=== PATIENT | female | born 1945 | race Caucasian/White ===

== ENCOUNTER 2021-03-23 20:35 | Inpatient (IN) | payer MEDICARE, OTHER ==
[~2021-03-23] VITALS: Ht 152.4 cm; Wt 100.4 kg
--- NOTE | 2021-03-23 20:51 | ER.PDOC ---
General Chief Complaint: Requesting Medical Care Stated Complaint: KNEE PAIN Time seen by MD: 20:47 Source: patient History of Present Illness Initial Comments 75-year-old female with a history of knee replacement surgery as well as septic joint that she is on chronic antibiotics for. Patient states she had surgery 7 months ago and had been transferred from [place] to [place] to be with her daughter for rehab. Patient states that she is on a generic version of penicillin chronically for her infection in her knee. Patient states that for the last 2 days she has not been feeling well and had a generalized weakness. She also noticed increased pain in her left knee and redness has worsened since the surgery and postop infection. Patient denies any fever, no chills, no cough, does have A. fib. Has taken hydrocodone for her pain in the knee with no resolution. Patient is unsure if she is having a fever as she has had no opportunity to check. States that pain worsens with ambulation and movement of any pain Onset: yesterday Where: home Severity: severe Associated Symptoms: unable to bear weight Allergies: Coded Allergies: Penicillins (Verified Allergy, Unknown, Rash, 03/23/21) codeine (Verified Allergy, Unknown, 03/23/21) fentanyl (Verified Allergy, Unknown, 03/23/21) hydromorphone (Verified Allergy, Unknown, 03/23/21) Review of Systems Musculoskeletal: see HPI Physical Exam General Appearance: Alert, Mild Distress Foot: swelling Neuro/Vasc/Tendon: sensation nml Skin: warm/dry (Erythema overlying the left knee with blanching and irregular distribution in the nature ) Head/ENT: nml inspection Neck/Back: nml inspection Comments Irregular regular rhythm on cardiac exam lungs: Diminished in the bases, normal excursion, noted oxygen level at 92% on my assessment Results/Orders Results/Orders Orders - EJESIEME,QAMAR C DO Saline Lock (03/23/21 20:43) Lactic Acid(Ml) (03/23/21 20:43) Blood Culture (03/23/21 20:43) Cbc With Auto Diff (03/23/21 20:43) Comprehensive Metabolic Panel (03/23/21 20:43) Creatine Kinase (03/23/21 20:43) Creatine Kinase Mb (03/23/21 20:43) Troponin I (03/23/21 20:43) Probnp B-Type Glaze Mixer (03/23/21 20:43) PT (03/23/21 20:43) Partial Thromboplastin Time. (03/23/21 20:43) Xr Chest 1v (03/23/21 20:43) Ekg-Routine (03/23/21 20:43) Type And Screen (03/23/21 20:43) Saline Lock (03/23/21 20:43) Covid19 Antigen Madhavi Celena (03/23/21 20:43) Us Bilat Lower Ext Venous Dopp (03/23/21 20:43) Erythrocyte Sedimentation Rate (03/23/21 20:43) C-Reactive Protein (03/23/21 20:43) Xr Knee Lt 2v (03/23/21 20:43) Procalcitonin (03/23/21 22:19) Ceftriaxone Sodium (Rocephin) (03/23/21 23:00) Vancomycin Hcl (Vancomycin Hcl) (03/23/21 23:00) Routine Vital Signs (03/23/21 22:58) Bedrest (03/23/21 22:58) Dietary Screen (03/24/21 Breakfast) Intake & Output (03/23/21 22:58) Admit Orders (03/23/21 22:58) Vital Signs Date Time Temp Pulse Resp B/P (MAP) Pulse Ox O2 Delivery O2 Flow Rate FiO2 03/23/21 20:58 98.3 90 16 03/23/21 20:58 98.3 90 16 148/77 (100) 93 Room Air 03/23/21 20:58 98.3 90 16 93 Laboratory Tests Test 03/23/21 21:27 03/23/21 22:05 White Blood Count 8.4 10^3/uL (4.5-11.0) Red Blood Count 3.85 10^6/uL (4.00-5.20) L Hemoglobin 12.0 g/dL (12.0-15.0) Hematocrit 38.1 % (36.0-46.0) Mean Corpuscular Volume 99.0 fL (78-100) Mean Corpuscular Hemoglobin 31.2 pg (26-34) Mean Corpuscular Hemoglobin Concent 31.5 g/dL (33-36.5) L Red Cell Distribution Width 18.4 % (11.5-14.5) H Platelet Count 328 10^3/uL (150-400) Mean Platelet Volume 9.0 fL (7.8-11.0) Neutrophils (%) (Auto) 66.6 % (41.0-85.0) Lymphocytes (%) (Auto) 15.8 % (24.0-44.0) L Monocytes (%) (Auto) 13.4 % (5.0-12.0) H Neutrophils # (Auto) 5.6 10^3/uL (1.8-7.7) Lymphocytes # (Auto) 1.32 10^3/uL1 (1.0-4.8) Monocytes # (Auto) 1.1 10^3/uL (0.3-0.8) H Absolute Immature Granulocyte (auto 0.07 10^3 u/L (0-2) Absolute Eosinophils (auto) 0.3 10^3/uL (0.0-0.2) H Immature Granulocytes % 0.80 % (0.00-0.50) H Eosinophils % 3.8 % (0.0-5.0) Basophils % 0.4 % (0.0-0.2) H Basophils # 0.0 10^3/uL (0.0-0.1) Erythrocyte Sedimentation Rate 35 mm/hr (0-20) H Prothrombin Time 14.3 SEC (9.6-12.0) H Prothrombin Time INR (Non-Therap) 1.3 Activated Partial Thromboplast Time 33.4 SEC (24.67-30.72) Sodium Level 133 mmol/L (132-145) Potassium Level 3.6 mmol/L (3.6-5.2) Chloride Level 100.0 mmol/L (96-109) Carbon Dioxide Level 29.5 mmol/L (20.0-32) Anion Gap 7.1 Blood Urea Nitrogen 10 mg/dL (7-18) Creatinine 0.90 mg/dL (0.59-1.40) Estimated GFR () 73.9 (>/=60) Est GFR (CKD-EPI)(Non-Afr Bruneian) 61.0 (>/=60) BUN/Creatinine Ratio 11.0 Glucose Level 108 mg/dL (70-110) Lactic Acid Level 1.0 mmol/L (0.5-1.9) Calcium Level 9.0 mg/dL (8.4-10.5) Total Bilirubin 0.9 mg/dL (0.2-1.0) Aspartate Amino Transferase (AST) 18 U/L (0-35) Alanine Aminotransferase (ALT) 24 U/L (12-78) Alkaline Phosphatase 90 U/L (50-136) Total Creatine Kinase 27 U/L (26-192) Creatine Kinase MB 1.2 ng/mL (0.5-3.6) Troponin I < 0.02 ng/mL (0.00-0.05) C-Reactive Protein 7.78 mg/dL (0.00-5.00) H Pro-B-Type Natriuretic Peptide 816 pg/mL (0-450) H Total Protein 7.5 g/dL (6.4-8.2) Albumin 3.1 g/dL (3.4-5.0) L Globulin 4.4 Albumin/Globulin Ratio 0.704 Procalcitonin < 0.05 ng/mL (0.05-0.5) L SARS-CoV-2 Antigen (Rapid) NEGATIVE (NEGATIVE) Blood Bank Test 03/23/21 21:27 Antibody Screen NEGATIVE Blood Type O POSITIVE Progress Progress EKG at 10:12 PM sinus rhythm at a rate of 82, QTc 477, no STEMI, indeterminate axis. Time is 11:02 PM. Patient results of for have had elevated laboratory markers, mild elevation in BNP in the 800s. Normal troponin. Given patient's presentation of worsening knee pain and swelling I am concerned of septic arthritis in the early stages was resistant to her home antibiotics. Will admit and start on IV antibiotics at this time. Hospitalist Dr. Mistry consulted and will admit inpatient ER DEPART Departure Time of Disposition: 23:03 Disposition: ADMITTED INPATIENT Impression: Primary Impression: Septic arthritis Condition: Stable Referrals: PCP,UNKNOWN (PCP) PRIMARY CARE PROVIDER Duration or Time Spent with Pa: 30mins QAMAR DOUGLAS DO Mar 23, 2021 20:51
[2021-03-23 20:58] VITALS: BP 148/77
--- NOTE | 2021-03-23 21:00 | NUR ---
US CALLED [facility] CALLED FOR US
[2021-03-23 21:05] VITALS: BP 148/77
--- NOTE | 2021-03-23 21:11 | DIREP ---
PROCEDURE:CHEST 1 VIEW COMPARISON:None. INDICATIONS:ill feeling, oxygen at 92% FINDINGS: LUNGS/PLEURA:Mildly increased interstitial markings in the upper lungs. No consolidation, nodules or mass lesions. VASCULATURE:Normal. Unremarkable pulmonary vasculature. CARDIAC:Cardiomegaly. MEDIASTINUM:Calcified aortic arch peer BONES:Arthritic changes left shoulder. OTHER:Negative. CONCLUSION:Mildly increased interstitial markings in the upper lungs compatible with mild fibrosis. Dictated by: Darrell Norris M.D. on 03/23/2021 at 09:08 PM
--- NOTE | 2021-03-23 21:15 | DIREP ---
PROCEDURE:XRAY KNEE 2 VWS-LT COMPARISON:None. INDICATIONS:post op infection/ knee pain FINDINGS: BONES:Normal. JOINTS:The patient has had left total knee arthroplasty. The prosthesis is in good position. Effusion in the suprapatellar recess. SOFT TISSUES:Reticulated pattern to the subcutaneous tissues consistent with edematous change. OTHER:No additional findings. CONCLUSION: 1. The patient has had left total knee arthroplasty. No acute osseous abnormality KEY. 2. Small joint effusion. 3. Subcutaneous edematous changes. Dictated by: Darrell Norris M.D. on 03/23/2021 at 09:11 PM
[2021-03-23 21:46] LABS: BASOPHIL % 0.4 % (0.0-0.2); EOSINOPHIL # 0.3 10^3/uL (0.0-0.2); EOSINOPHIL % 3.8 % (0.0-5.0); LYMPHOCYTES # 1.32 10^3/uL1 (1.0-4.8); LYMPHOCYTES % 15.8 % (24.0-44.0); MEAN CORP HGB 31.2 pg (26-34); MONOCYTES # 1.1 10^3/uL (0.3-0.8); MONOCYTES % 13.4 % (5.0-12.0); NEUTROPHIL # 5.6 10^3/uL (1.8-7.7); NEUTROPHILS % 66.6 % (41.0-85.0); PLATELET COUNT 328 10^3/uL (150-400); RED CELL DISTRIBUTION WIDTH 18.4 % (11.5-14.5)
[2021-03-23 22:12] LABS: ALANINE AMINOTRANSFERASE(ML) 24 U/L (12-78); ALKALINE PHOSPHATASE 90 U/L (50-136); ASPARTATE AMINO TRANSFERASE 18 U/L (0-35); CARBON DIOXIDE 29.5 mmol/L (20.0-32); GLUCOSE 108 mg/dL (70-110)
--- NOTE | 2021-03-23 22:17 | PCM.EKG ---
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
--- NOTE | 2021-03-23 22:32 | DIREP ---
PROCEDURE:US VENOUS IMAGING BILAT COMPARISON:None. INDICATIONS:bilateral LE swelling X 6 MO., LT KNEE REPLACEMENT X 6 MO. AGO TECHNIQUE:The lower extremities were evaluated utilizing brambila scale images with segmental compression, color Doppler, and spectral Doppler with respiratory variation and augmentation. FINDINGS: RIGHT Common femoral vein:Patent Superficial femoral vein:Patent Popliteal vein:Patent Posterior tibial vein:Patent Anterior tibial vein:Patent Greater saphenous vein:Patent Waveforms: Within normal limits. LEFT Common femoral vein:Patent Superficial femoral vein:Patent Popliteal vein:Patent Posterior tibial vein:Patent Anterior tibial vein:Patent Greater saphenous vein:Patent Waveforms: Within normal limits. CONCLUSION:Normal bilateral Doppler ultrasound examination of the lower extremity veins. Dictated by: Darrell Norris M.D. on 03/23/2021 at 10:30 PM
[2021-03-23] MEDS ORDERED: VANCOMYCIN HCL 2 GM in NS 250ML 250 ML IV ONE (23:00)
[2021-03-23] MEDS ORDERED: ROCEPHIN 2,000 MG in NS 100ML 100 ML IV SCH (23:00)
--- NOTE | 2021-03-23 23:28 | PCM.HP ---
History of Present Illness Reason for Visit: left knee septic arthritis History of Present Illness 75yoF w/ hx of A.fib, CAD s/p SD x 4 (no stents or CABG), stroke (20yrs ago), COPD, asthma, pulmonary fibrosis, CKD, and left total knee arthroplasty 7mn ago w/ resultant septic arthritis (on lifelong penicillin-derivative abx, patient does not remember name of abx at this time) presented to the ED for increased redness, warmth, and pain to left knee. Stated she was released from rehab in [place], [place] yesterday and her daughter drove her straight here. Since leaving rehab she has had increased redness and warmth in her left knee. States it is very difficult and painful to move, and when she got to the ED she could not bend her knee at all. Also endorsed malaise, weakness, and nausea. Denies DOWNS, dizziness, CP, SOB, vomiting, change in stools. THinks she has been running fever but has not checked her temp. Has been taking [place] w/o relief. Daughter brought her to the ED for further evaluation. ED course: WBC 8.4. CMP grossly normal. ESR 35, CRP 7.78. BNP 816. Procal < 0.05. Vitals stable. Left knee Xray: subcutaneous edema, small joint effusion, s/p total arthroplasty BLE US: negative for DVT. Unable to bear weight. Admitting for left knee septic arthritis s/p total knee arthroplasty 7 months ago, will consult ortho and ID. 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: CVA (20yrs ago) GI: GERD Musculoskeletal: Chronic Low Back Pain, Other (s/p left knee replacement 6mn ago) Renal/: Chronic Renal Insuff Past Surgical History: Total knee replacement (left, 7mn ago) Past Social History Smoke: No Alcohol: none Drugs: None Lives: with Family Domestic Violence: Neg Review of Systems Constitutional: Fever (subjective), Weakness, Malaise; No: Chills, Sweats Eyes: No: Pain, Vision change Respiratory: No: Cough, Shortness of breath, Wheezing Cardiovascular: No: Chest Pain, Palpitations, Orthopnea, Lt Headedness Gastrointestinal: Nausea; No: Vomiting, Abdominal Pain, Diarrhea, Constipation Musculoskeletal: other (redness, swelling, warmth of left knee), back pain, leg pain Skin: Bruising; No: Rash Neurological: Weakness; No: Numbness, Change in speech, Confusion Allergies: Coded Allergies: Penicillins (Verified Allergy, Unknown, Rash, 03/23/21) codeine (Verified Allergy, Unknown, 03/23/21) fentanyl (Verified Allergy, Unknown, 03/23/21) hydromorphone (Verified Allergy, Unknown, 03/23/21) VTE VTE Risk Score VTE Risk: Score 0-1 = Low Risk (Aggressive mobilization; early ambulation; no VTE prophylaxis required) Score 2: Moderate Risk (Intermittent/Pneumatic Compression Device OR Lovenox/Heparin/Coumadin) Score 3-4: High Risk (Intermittent/Pneumatic Compression Device AND Lovenox/Heparin/Coumadin) Score > or =5: Highest Risk (Intermittent/Pneumatic Compression Device AND Lovenox/Heparin/Coumadin) Antico:Hep/LMWH/Coum/Xarelto: Yes Mechanical device ordered: No VTE VTE Present on Admission: No Currently receiving anticoagul: Yes Antico:Hep/LMWH/Coum/Xarelto: Yes Mechanical device ordered: No Protocol for Platelet Monitori: Following Clinical Path Exam Vital Signs First Vital Signs Date Time Temp Pulse Resp B/P (MAP) Pulse Ox O2 Delivery O2 Flow Rate FiO2 03/23/21 20:58 98.3 90 16 93 03/23/21 20:58 148/77 (100) Room Air 03/23/21 21:05 2.00 03/24/21 00:56 28 Last Vital Signs Date Time Temp Pulse Resp B/P (MAP) Pulse Ox O2 Delivery O2 Flow Rate FiO2 03/24/21 00:57 19 99 03/24/21 00:56 115 Nasal Cannula 2.00 28 03/23/21 23:38 98.5 132/78 (96) General Appearance: Alert, Oriented X3, Cooperative, No acute distress HEENT: Atraumatic, EOMI, Mucous membr. moist/pink Respiratory: Clear to auscultation, Normal air movement, Other (no rales, no rhonchi, no wheezes) Cardiovascular: Regular rate, Normal S1, Normal S2, No murmurs Abdominal: Normal bowel sounds, Soft, No tenderness, No masses Extremities: No cyanosis, Normal pulses, Other (TTP left knee and 2cm proximal/distal, 2+ pitting edema 2cm proximal/distal to left knee and including left knee, erythema and warmth to left knee, unable to flex left knee past 30 degrees, left knee held in extension, sutures in places, s/p left knee total arthroplasty) Skin: Other (erythema and warmth to left knee) Neuro: Normal speech, Sensation intact, Other (unable to bear weight on left leg, see extremity exam above) Psych/Mental Status: Mental status NL, Mood NL Assessment/Plan Assessment/Plan Assessment/Plan 75yoF w/ extensive medical hx most recently left total knee arhtorplasty 7mn ago w/ 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 Admitting for septic arthritis of left knee s/p total arthroplasty. Will manage chronic conditions as below, patient did not bring home med list with but will obtsin from her daughter in AM. Problems: (1) Septic arthritis Status: Chronic Assessment & Plan: Acute exacerbation of chronic left knee spetic arthritis. S/p left knee total arthroplasty 7 mn ago, just released from rehab in [place], [place] yesterday and brought down to [place] by her daughter. ESR and CRP elevated, WBC normal. Vitals stable. XR left knee positive for subQ edema and small joint effusion, s/p total arthroplasty. -vancomycin and rocephin -consult ortho and ID COMPLICATION TYPE: W/ ACUTE EXACERBATION ICD Code: M00.9 - Pyogenic arthritis, unspecified SNOMED: 363064123 (2) Atrial fibrillation Status: Chronic Assessment & Plan: EKG: normal sinus rhythm -continue home meds when known ICD Code: I48.91 - Unspecified atrial fibrillation SNOMED: 96287133 (3) CAD (coronary artery disease) Status: Chronic Assessment & Plan: No hx of stents or CABG. s/p SD x 4. -continue home meds when known ICD Code: I25.10 - Atherosclerotic heart disease of [place] coronary artery without angina pectoris SNOMED: 87808717 (4) COPD (chronic obstructive pulmonary disease) Status: Chronic Assessment & Plan: Doing well on 2L NC, denies SOB, cough, wheezing, Does not use supplemental O2 at baseline. -continue home meds when known ICD Code: J44.9 - Chronic obstructive pulmonary disease, unspecified SNOMED: 36465277 (5) Pulmonary fibrosis Status: Chronic Assessment & Plan: See COPD plan above. ICD Code: J84.10 - Pulmonary fibrosis, unspecified SNOMED: 88996915 (6) Morbid obesity with BMI of 40.0-44.9, adult Status: Chronic Assessment & Plan: BMI 43.9. Likely complicating rehab and healing of left knee. ICD Code: E66.01 - Morbid (severe) obesity due to excess calories; Z68.41 - Body mass index [BMI] 40.0-44.9, adult SNOMED: 345895142, 089925519, 27042651199016 (7) History of SD (myocardial infarction) ICD Code: I25.2 - Old myocardial infarction SNOMED: 439069783 (8) History of stroke ICD Code: Z86.73 - Personal history of transient ischemic attack (TIA), and cerebral infarction without residual deficits SNOMED: 623957056 LAB RESULTS Blood Bank Test 03/23/21 21:27 Antibody Screen NEGATIVE Blood Type O POSITIVE Laboratory Tests Test 03/23/21 21:27 03/23/21 22:05 White Blood Count 8.4 10^3/uL (4.5-11.0) Red Blood Count 3.85 10^6/uL (4.00-5.20) Hemoglobin 12.0 g/dL (12.0-15.0) Hematocrit 38.1 % (36.0-46.0) Mean Corpuscular Volume 99.0 fL (78-100) Mean Corpuscular Hemoglobin 31.2 pg (26-34) Mean Corpuscular Hemoglobin Concent 31.5 g/dL (33-36.5) Red Cell Distribution Width 18.4 % (11.5-14.5) Platelet Count 328 10^3/uL (150-400) Mean Platelet Volume 9.0 fL (7.8-11.0) Neutrophils (%) (Auto) 66.6 % (41.0-85.0) Lymphocytes (%) (Auto) 15.8 % (24.0-44.0) Monocytes (%) (Auto) 13.4 % (5.0-12.0) Neutrophils # (Auto) 5.6 10^3/uL (1.8-7.7) Lymphocytes # (Auto) 1.32 10^3/uL1 (1.0-4.8) Monocytes # (Auto) 1.1 10^3/uL (0.3-0.8) Absolute Immature Granulocyte (auto 0.07 10^3 u/L (0-2) Absolute Eosinophils (auto) 0.3 10^3/uL (0.0-0.2) Immature Granulocytes % 0.80 % (0.00-0.50) Eosinophils % 3.8 % (0.0-5.0) Basophils % 0.4 % (0.0-0.2) Basophils # 0.0 10^3/uL (0.0-0.1) Erythrocyte Sedimentation Rate 35 mm/hr (0-20) Prothrombin Time 14.3 SEC (9.6-12.0) Prothrombin Time INR (Non-Therap) 1.3 Activated Partial Thromboplast Time 33.4 SEC (24.67-30.72) Sodium Level 133 mmol/L (132-145) Potassium Level 3.6 mmol/L (3.6-5.2) Chloride Level 100.0 mmol/L (96-109) Carbon Dioxide Level 29.5 mmol/L (20.0-32) Anion Gap 7.1 Blood Urea Nitrogen 10 mg/dL (7-18) Creatinine 0.90 mg/dL (0.59-1.40) Estimated GFR () 73.9 (>/=60) Est GFR (CKD-EPI)(Non-Afr Macedonian) 61.0 (>/=60) BUN/Creatinine Ratio 11.0 Glucose Level 108 mg/dL (70-110) Lactic Acid Level 1.0 mmol/L (0.5-1.9) Calcium Level 9.0 mg/dL (8.4-10.5) Total Bilirubin 0.9 mg/dL (0.2-1.0) Aspartate Amino Transf (AST/SGOT) 18 U/L (0-35) Alanine Aminotransferase (ALT/SGPT) 24 U/L (12-78) Alkaline Phosphatase 90 U/L (50-136) Total Creatine Kinase 27 U/L (26-192) Creatine Kinase MB 1.2 ng/mL (0.5-3.6) Troponin I < 0.02 ng/mL (0.00-0.05) C-Reactive Protein 7.78 mg/dL (0.00-5.00) Pro-B-Type Natriuretic Peptide 816 pg/mL (0-450) Total Protein 7.5 g/dL (6.4-8.2) Albumin 3.1 g/dL (3.4-5.0) Globulin 4.4 Albumin/Globulin Ratio 0.704 Procalcitonin < 0.05 ng/mL (0.05-0.5) SARS-CoV-2 Antigen (Rapid) NEGATIVE (NEGATIVE) Problem Qualifiers (1) Septic arthritis: Septic arthritis location: knee Laterality: left (2) CAD (coronary artery disease): Associated angina: without angina MALAIKA NJ MD Mar 23, 2021 23:28
[2021-03-23] MEDS ORDERED: ROCEPHIN ONE (23:30)
[2021-03-23] MEDS ORDERED: ZOFRAN IV PRN (23:30)
[2021-03-23] MEDS ORDERED: TYLENOL PO PRN (23:30)
[2021-03-23] MEDS ORDERED: NS 100ML 100 ML IV ONE ×2 (23:30→23:32)
[2021-03-23 23:38] VITALS: BP 132/78
[2021-03-23] MEDS ORDERED: MORPHINE SULFATE IV PRN (23:45)
--- NOTE | 2021-03-24 01:00 | NUR ---
Dr Mistry skyped with patient.
--- NOTE | 2021-03-24 01:45 | NUR ---
Phoned Dr Mistry for vancomycin order clarification. She stated to administer the vancomycin 2 gram loading dose as ordered by the ER physician, then give vancomycin 1 gram every twelve hours beginning twelve hours after loading dose. Order RBAV.
[2021-03-24] MEDS ORDERED: VANCOMYCIN HCL 2 GM ONE ×2 (01:48→02:14)
[2021-03-24] MEDS ORDERED: NS 500ML 500 ML IV ONE ×3 (01:50→15:21)
[2021-03-24] MEDS ORDERED: NS IV ONE (03:00)
[2021-03-24] MEDS ORDERED: VANCOMYCIN HCL IV ONE (03:00)
[2021-03-24 04:22] VITALS: BP 118/78
[2021-03-24 05:48] LABS: BASOPHIL # 0.1 10^3/uL (0.0-0.1); BASOPHIL % 0.5 % (0.0-0.2); EOSINOPHIL # 0.4 10^3/uL (0.0-0.2); EOSINOPHIL % 4.5 % (0.0-5.0); LYMPHOCYTES # 1.29 10^3/uL1 (1.0-4.8); LYMPHOCYTES % 13.7 % (24.0-44.0); MEAN CORP HGB 31.3 pg (26-34); MONOCYTES # 1.3 10^3/uL (0.3-0.8); MONOCYTES % 14.3 % (5.0-12.0); NEUTROPHIL # 6.3 10^3/uL (1.8-7.7); PLATELET COUNT 297 10^3/uL (150-400); RED CELL DISTRIBUTION WIDTH 18.2 % (11.5-14.5)
[2021-03-24 06:10] LABS: CALCIUM 8.9 mg/dL (8.4-10.5); CARBON DIOXIDE 29.8 mmol/L (20.0-32)
[2021-03-24] MEDS: PROTONIX PO SCH (08:18)
[2021-03-24] MEDS: LOVENOX SQ SCH (08:18)
[2021-03-24] MEDS ORDERED: VANCOMYCIN HCL 1 GM in NS 250ML 250 ML IV ONE (09:00)
[2021-03-24 09:05] VITALS: BP 117/70
--- NOTE | 2021-03-24 09:17 | PRM.CONS ---
Consultation Reason for Consult: Reason for Consultation: Left knee septic arthritis History of Present Illness History of Patient Comments Patient resting in bed, came to the ER for left knee pain with swelling and redness. Admitted for septic arthritis. Patient had a left total knee arthroplasty 7 months ago in [place], [place]. Patient was at a rehab in [place]. Denies any fever or chills. Currently on antibiotics. Uses a walker to ambulate. Review of Systems Constitutional: Fever (subjective), Weakness, Malaise; No: Chills, Sweats Eyes: No: Pain, Vision change Respiratory: No: Cough, Shortness of breath, Wheezing Cardiovascular: No: Chest Pain, Palpitations, Orthopnea, Lt Headedness Gastrointestinal: Nausea; No: Vomiting, Abdominal Pain, Diarrhea, Constipation Musculoskeletal: other (redness, swelling, warmth of left knee), leg pain (left knee pain and swelling) Skin: Bruising; No: Rash Neurological: Weakness; No: Numbness, Change in speech, Confusion Allergies: Coded Allergies: sulfamethoxazole (Verified Allergy, Intermediate, 03/24/21) trimethoprim (Verified Allergy, Intermediate, 03/24/21) Penicillins (Verified Allergy, Unknown, Rash, 03/23/21) fentanyl (Verified Allergy, Unknown, 03/23/21) hydromorphone (Verified Allergy, Unknown, 03/23/21) VTE VTE Risk Total Score: >5 VTE Risk Score VTE Risk: Score 0-1 = Low Risk (Aggressive mobilization; early ambulation; no VTE prophylaxis required) Score 2: Moderate Risk (Intermittent/Pneumatic Compression Device OR Lovenox/Heparin/Coumadin) Score 3-4: High Risk (Intermittent/Pneumatic Compression Device AND Lovenox/Heparin/Coumadin) Score > or =5: Highest Risk (Intermittent/Pneumatic Compression Device AND Lovenox/Heparin/Coumadin) Antico:Hep/LMWH/Coum/Xarelto: Yes Mechanical device ordered: No Assessment/Plan Assessment/Plan Assessment/Plan 75yoF w/ extensive medical hx most recently left total knee arthroplasty 7mn ago w/ 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 Admitting for septic arthritis of left knee s/p total arthroplasty. labs reviewed will consult with Dr Milton Patient History: Asthma G8 MOTHER FH: alcoholism G8 MOTHER No known health problems G8 FATHER 19 CHILD 19 CHILD 19 CHILD 19 CHILD 19 CHILD STERLING SALDAÑA NP Mar 24, 2021 09:17
[2021-03-24 12:27] VITALS: BP 142/85
--- NOTE | 2021-03-24 14:05 | PRM.PN ---
Subjective Subjective Date: Mar 24, 2021 Time: 09:00 Subjective Still complaining of knee pain and swelling. Orthopedics consulted. Currently patient is IV antibiotics. Patient History: Asthma G8 MOTHER FH: alcoholism G8 MOTHER No known health problems G8 FATHER 19 CHILD 19 CHILD 19 CHILD 19 CHILD 19 CHILD VTE VTE Risk Total Score: >5 VTE Risk Score VTE Risk: Score 0-1 = Low Risk (Aggressive mobilization; early ambulation; no VTE prophylaxis required) Score 2: Moderate Risk (Intermittent/Pneumatic Compression Device OR Lovenox/Heparin/Coumadin) Score 3-4: High Risk (Intermittent/Pneumatic Compression Device AND Lovenox/Heparin/Coumadin) Score > or =5: Highest Risk (Intermittent/Pneumatic Compression Device AND Lovenox/Heparin/Coumadin) Antico:Hep/LMWH/Coum/Xarelto: Yes Mechanical device ordered: No Review of Systems Constitutional: Fever (subjective), Weakness, Malaise; No: Chills, Sweats Eyes: No: Pain, Vision change Respiratory: No: Cough, Shortness of breath, Wheezing Cardiovascular: No: Chest Pain, Palpitations, Orthopnea, Lt Headedness Gastrointestinal: Nausea; No: Vomiting, Abdominal Pain, Diarrhea, Constipation Musculoskeletal: other (redness, swelling, warmth of left knee), leg pain (left knee pain and swelling) Skin: Bruising; No: Rash Neurological: Weakness; No: Numbness, Change in speech, Confusion Allergies: Coded Allergies: sulfamethoxazole (Verified Allergy, Intermediate, 03/24/21) trimethoprim (Verified Allergy, Intermediate, 03/24/21) Penicillins (Verified Allergy, Unknown, Rash, 03/23/21) fentanyl (Verified Allergy, Unknown, 03/23/21) hydromorphone (Verified Allergy, Unknown, 03/23/21) Objective Vitals and I/O Vital Sign - Last 24 Hours 03/23/21 03/23/21 03/23/21 03/23/21 20:58 20:58 20:58 21:05 Temp 98.3 98.3 98.3 98.1 Pulse 90 90 90 88 Resp 16 16 16 19 B/P (MAP) 148/77 (100) 148/77 (100) Pulse Ox 93 93 93 O2 Delivery Room Air Nasal Canula O2 Flow Rate 2.00 10/6/21 03/24/21 03/24/21 03/24/21 23:38 00:16 00:56 00:57 Temp 98.5 Pulse 115 115 Resp 19 19 19 B/P (MAP) 132/78 (96) Pulse Ox 99 99 99 O2 Delivery Nasal Canula Nasal Cannula Nasal Cannula O2 Flow Rate 2.00 2.00 2.00 FiO2 28 03/24/21 03/24/21 03/24/21 04:22 09:05 12:27 Temp 98.3 98.1 97.9 Pulse 95 87 92 Resp 18 16 B/P (MAP) 118/78 (91) 117/70 (86) 142/85 (104) Pulse Ox 97 95 98 O2 Delivery Nasal [place] Room Air O2 Flow Rate 2.00 General: Alert, Oriented X3, Cooperative, No acute distress HEENT: Atraumatic, EOMI, Mucous membr. moist/pink Lungs: Clear to auscultation, Normal air movement, Other (no rales, no rhonchi, no wheezes) Heart: Regular rate, Normal S1, Normal S2, No murmurs Abdomen: Normal bowel sounds, Soft, No tenderness, No masses Extremities: No cyanosis, Normal pulses, Other (TTP left knee and 2cm proximal/distal, 2+ pitting edema 2cm proximal/distal to left knee and including left knee, erythema and warmth to left knee, unable to flex left knee past 30 degrees, left knee held in extension, sutures in places, s/p left knee total arthroplasty) Neuro: Normal speech, Sensation intact, Other (unable to bear weight on left leg, see extremity exam above) Psych/Mental Status: Mental status NL, Mood NL All Results(Lab/Rad) Laboratory Tests Test 03/23/21 21:27 03/23/21 22:05 03/24/21 05:25 White Blood Count 8.4 10^3/uL 9.4 10^3/uL Red Blood Count 3.85 10^6/uL 3.52 10^6/uL Hemoglobin 12.0 g/dL 11.0 g/dL Hematocrit 38.1 % 34.1 % Mean Corpuscular Volume 99.0 fL 96.9 fL Mean Corpuscular Hemoglobin 31.2 pg 31.3 pg Mean Corpuscular Hemoglobin Concent 31.5 g/dL 32.3 g/dL Red Cell Distribution Width 18.4 % 18.2 % Platelet Count 328 10^3/uL 297 10^3/uL Mean Platelet Volume 9.0 fL 9.2 fL Neutrophils (%) (Auto) 66.6 % 67.0 % Lymphocytes (%) (Auto) 15.8 % 13.7 % Monocytes (%) (Auto) 13.4 % 14.3 % Neutrophils # (Auto) 5.6 10^3/uL 6.3 10^3/uL Lymphocytes # (Auto) 1.32 10^3/uL1 1.29 10^3/uL1 Monocytes # (Auto) 1.1 10^3/uL 1.3 10^3/uL Absolute Immature Granulocyte (auto 0.07 10^3 u/L 0.03 10^3 u/L Absolute Eosinophils (auto) 0.3 10^3/uL 0.4 10^3/uL Immature Granulocytes % 0.80 % 0.30 % Eosinophils % 3.8 % 4.5 % Basophils % 0.4 % 0.5 % Basophils # 0.0 10^3/uL 0.1 10^3/uL Erythrocyte Sedimentation Rate 35 mm/hr Prothrombin Time 14.3 SEC Prothrombin Time INR (Non-Therap) 1.3 Activated Partial Thromboplast Time 33.4 SEC Sodium Level 133 mmol/L 139 mmol/L Potassium Level 3.6 mmol/L 3.9 mmol/L Chloride Level 100.0 mmol/L 105.0 mmol/L Carbon Dioxide Level 29.5 mmol/L 29.8 mmol/L Anion Gap 7.1 8.1 Blood Urea Nitrogen 10 mg/dL 10 mg/dL Creatinine 0.90 mg/dL 0.86 mg/dL Estimated GFR () 73.9 77.8 Est GFR (CKD-EPI)(Non-Afr C[place]raes) 61.0 64.3 BUN/Creatinine Ratio 11.0 11.0 Glucose Level 108 mg/dL 101 mg/dL Lactic Acid Level 1.0 mmol/L Calcium Level 9.0 mg/dL 8.9 mg/dL Total Bilirubin 0.9 mg/dL 0.6 mg/dL Aspartate Amino Transf (AST/SGOT) 18 U/L 17 U/L Alanine Aminotransferase (ALT/SGPT) 24 U/L 21 U/L Alkaline Phosphatase 90 U/L 71 U/L Total Creatine Kinase 27 U/L Creatine Kinase MB 1.2 ng/mL Troponin I < 0.02 ng/mL C-Reactive Protein 7.78 mg/dL Pro-B-Type Natriuretic Peptide 816 pg/mL Total Protein 7.5 g/dL 6.3 g/dL Albumin 3.1 g/dL 2.5 g/dL Globulin 4.4 3.8 Albumin/Globulin Ratio 0.704 0.657 Procalcitonin < 0.05 ng/mL SARS-CoV-2 Antigen (Rapid) NEGATIVE Current Medications Medications (Trade) Dose Ordered Sig/Mj Route PRN Reason Start Time Stop Time Status Last Admin Dose Admin Ceftriaxone Sodium 2000 mg/ Sodium Chloride 100 ml @ 100 mls/hr OT IV 03/23/21 23:00 04/22/21 22:59 03/23/21 23:38 Vancomycin HCl 2 gm/Sodium Chloride 250 ml @ 175 mls/hr OT ONCE IV 03/23/21 23:00 03/24/21 02:38 DC Sodium Chloride 100 ml @ ud STK-MED ONCE IV 03/23/21 23:30 03/23/21 23:30 DC Ceftriaxone Sodium (Rocephin) 2,000 mg STK-MED ONCE .ROUTE 03/23/21 23:30 03/23/21 23:30 DC Acetaminophen (Tylenol) 325 mg Q4H PRN PO PAIN 1 - 3 03/23/21 23:30 04/22/21 23:29 Pantoprazole Sodium (Protonix) 40 mg DAILY PO 03/24/21 09:00 04/23/21 08:59 03/24/21 08:18 Morphine Sulfate (Morphine Sulfate) 2 mg Q4H PRN IV PAIN 7 - 10 03/23/21 23:45 04/22/21 23:44 Ondansetron HCl (Zofran) 4 mg Q4H PRN IV NAUSEA / VOMITING 03/23/21 23:30 04/22/21 23:29 Sodium Chloride 100 ml @ ud STK-MED ONCE IV 03/23/21 23:32 03/23/21 23:33 DC Vancomycin HCl 1 gm/Sodium Chloride 250 ml @ 175 mls/hr Q12HR ONCE IV 03/24/21 09:00 03/24/21 09:28 DC Ceftriaxone Sodium 2000 mg/ Sodium Chloride 100 ml @ 100 mls/hr Q24HRS IV 03/24/21 23:00 04/23/21 22:59 Enoxaparin Sodium (Lovenox) 40 mg Q24HRS SQ 03/24/21 09:00 04/23/21 08:59 03/24/21 08:18 Vancomycin HCl 2 ml @ ud STK-MED ONCE .ROUTE 03/24/21 01:48 03/24/21 01:49 DC Sodium Chloride 500 ml @ ud STK-MED ONCE IV 03/24/21 01:50 03/24/21 01:50 DC Vancomycin HCl 2 ml @ ud STK-MED ONCE .ROUTE 03/24/21 02:14 03/24/21 02:15 DC Sodium Chloride 500 ml @ ud STK-MED ONCE IV 03/24/21 02:15 03/24/21 02:15 DC Vancomycin HCl 2 gm/Sodium Chloride 500 ml @ 175 mls/hr OT ONCE IV 03/24/21 03:00 03/24/21 09:28 DC Vancomycin HCl 2 gm/Sodium Chloride 500 ml @ 175 mls/hr OT ONCE IV 03/24/21 03:00 03/24/21 08:12 DC 03/24/21 02:48 Vancomycin HCl 1 gm/Sodium Chloride 250 ml @ 175 mls/hr Q12H IV 03/24/21 15:00 04/23/21 14:59 Assessment/Plan Assessment/Plan Assessment/Plan 75yoF w/ extensive medical hx most recently left total knee arhtorplasty 7mn ago w/ 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 Admitting for septic arthritis of left knee s/p total arthroplasty. Will manage chronic conditions as below, patient did not bring home med list with but will obtsin from her daughter in AM. Problems: (1) Septic arthritis Status: Chronic Assessment & Plan: Acute exacerbation of chronic left knee spetic arthritis. S/p left knee total arthroplasty 7 mn ago, just released from rehab in [place], [place] yesterday and brought down to [place] by her daughter. ESR and CRP elevated, WBC normal. Vitals stable. XR left knee positive for subQ edema and small joint effusion, s/p total arthroplasty. -vancomycin and rocephin -consult ortho and ID COMPLICATION TYPE: W/ ACUTE EXACERBATION ICD Code: M00.9 - Pyogenic arthritis, unspecified SNOMED: 122016392 (2) Atrial fibrillation Status: Chronic Assessment & Plan: EKG: normal sinus rhythm -continue home meds when known ICD Code: I48.91 - Unspecified atrial fibrillation SNOMED: 78746374 (3) CAD (coronary artery disease) Status: Chronic Assessment & Plan: No hx of stents or CABG. s/p OK x 4. -continue home meds when known ICD Code: I25.10 - Atherosclerotic heart disease of [place] coronary artery without angina pectoris SNOMED: 06799868 (4) COPD (chronic obstructive pulmonary disease) Status: Chronic Assessment & Plan: Doing well on 2L NC, denies SOB, cough, wheezing, Does not use supplemental O2 at baseline. -continue home meds when known ICD Code: J44.9 - Chronic obstructive pulmonary disease, unspecified SNOMED: 99515634 (5) Pulmonary fibrosis Status: Chronic Assessment & Plan: See COPD plan above. ICD Code: J84.10 - Pulmonary fibrosis, unspecified SNOMED: 00714964 (6) Morbid obesity with BMI of 40.0-44.9, adult Status: Chronic Assessment & Plan: BMI 43.9. Likely complicating rehab and healing of left knee. ICD Code: E66.01 - Morbid (severe) obesity due to excess calories; Z68.41 - Body mass index [BMI] 40.0-44.9, adult SNOMED: 007987799, 427442666, [id number] (7) History of OK (myocardial infarction) ICD Code: I25.2 - Old myocardial infarction SNOMED: 455185500 (8) History of stroke ICD Code: Z86.73 - Personal history of transient ischemic attack (TIA), and cer ebral infarction without residual deficits RAHUL DIAZ MD Mar 24, 2021 14:05
[2021-03-24] MEDS: VANCOMYCIN HCL 1 GM in NS 250ML 250 ML IV SCH (15:00)
[2021-03-24 17:08] VITALS: BP 124/74
[2021-03-24] MEDS: NORCO 10MG PO PRN (19:26)
[2021-03-24 20:00] VITALS: BP 136/78
[2021-03-24] MEDS: ROCEPHIN 2,000 MG in NS 100ML 100 ML IV SCH (23:01)
[2021-03-24 23:55] VITALS: BP 111/65
--- NOTE | 2021-03-25 01:36 | CNH ---
DATE OF CONSULTATION: 03/24/2021 DICTATOR NAME: Alfred Milton MD DATE OF CONSULTATION: 03/24/2021 CHIEF COMPLAINT: Painful left knee. HISTORY OF PRESENT ILLNESS: The patient is a 75-year-old female who lives in [place], [place] until yesterday. The patient had left total knee arthroplasty in [place] according to her history six months ago. Apparently about a month postop, according to her history her knee got infected and she underwent incision and debridement of the knee. It is unclear to me whether they removed her implants or just did a polyethylene exchange and washout. It is my understanding talking to the patient that at that point, it was decided that she would be on suppressive antibiotics for the rest of her life. The patient was in some type of rehab unit in [place] until yesterday. Apparently yesterday, her family took her from [place], [place] after her rehab days were up and brought her to the [facility] last night. According to the patient, yesterday she began having problems with her knee as far as being able to weightbear. Again, according to the patient's history, she has been able to weightbear and ambulate at the rehab unit satisfactorily until yesterday. The patient does not report any type of injury yesterday or any other explanation of why she is having problems with the knee. My understanding that she really does not have a lot of pain in the knee, just has instability. The patient denies any fever or chills. She has been ambulatory with a walker, it is my understanding that the rehab unit in [place] for the last 3 or 4 months. The patient's exam today shows that she has an anterior incision about the left knee. She has one small eschar in the mid portion of her knee wound and distally there is a small eschar. The patient does not appear to have a joint effusion. She is able to do a straight leg raise against resistance, but does have some weakness about the knee. The patient demonstrates about 90 degrees of flexion. She has good medial and lateral stability about the knee to stressing and appeared to have good anterior and posterior stability. The patient has been afebrile since her admission. Her admitting white count was 8.4 with a sed rate of 35. Her CRP is 7.78. The x-rays about the knee did not show any obvious loosening of the components. ASSESSMENT: History of left total knee infection, currently being treated with suppressive antibiotics. PLAN: The patient will get physical therapy at this point for assessment of her ambulatory difficulties. I did not see any surgical indications at this point. The patient can continue with her IV vancomycin at this point. The patient needs to have her medical records from the hospitalization or previous medical admissions from [place] transferred to [place]. Alfred Milton MD DR: ALEXIS/SHUBHAM TID: [id number] RECEIPT: [id number]
[2021-03-25] MEDS: VANCOMYCIN HCL 1 GM in NS 250ML 250 ML IV SCH ×2 (04:00→18:00)
[2021-03-25 04:25] VITALS: BP 124/70
[2021-03-25 05:40] LABS: BASOPHIL # 0.1 10^3/uL (0.0-0.1); BASOPHIL % 0.7 % (0.0-0.2); EOSINOPHIL # 0.4 10^3/uL (0.0-0.2); EOSINOPHIL % 6.1 % (0.0-5.0); LYMPHOCYTES # 1.24 10^3/uL1 (1.0-4.8); LYMPHOCYTES % 17.1 % (24.0-44.0); MEAN CORP HGB 31.3 pg (26-34); MONOCYTES # 1.2 10^3/uL (0.3-0.8); NEUTROPHIL # 4.3 10^3/uL (1.8-7.7); NEUTROPHILS % 59.1 % (41.0-85.0); PLATELET COUNT 260 10^3/uL (150-400); RED CELL DISTRIBUTION WIDTH 18.2 % (11.5-14.5)
[2021-03-25 06:38] LABS: CALCIUM 8.2 mg/dL (8.4-10.5); CARBON DIOXIDE 27.3 mmol/L (20.0-32)
[2021-03-25 07:30] VITALS: BP 135/81
[2021-03-25] MEDS: PROTONIX PO SCH (08:16)
[2021-03-25] MEDS: LOVENOX SQ SCH (08:16)
--- NOTE | 2021-03-25 10:51 | NUR ---
DISCHARGE PLANNING DR KAY REQUESTED CM GET PATIENT'S MEDICAL RECORDS FROM [place] IF POSSIBLE. CM VISITED WITH PATIENT ABOUT DISCHARGE PLANS AND NEEDS. PATIENT REPORTS SHE JUST MOVED HERE FROM [place], [place] THIS WEEK AND CURRENTLY LIVING WITH HER DAUGHTER TO ASSIST WITH REHAB. PER PATIENT HER DAUGHTER JUST MOVED HERE A MONTH OR SO AGO. PATIENT AGREEABLE FOR CM TO REACH OUT TO [facility] IN [place], [place] AND OBTAIN MEDICAL RECORDS. PATIENT EDUCATED ON RESOURCES AVAILABLE AND DECLINES ALL SERVICES PROVIDED@ THIS TIME. PATIENT PLANS TO DISCHARGE HOME WITH DAUGHTER TO SELF CARE. PATIENT GIVEN PCP LIST SINCE NEW TO [facility] AND PATIENT WITH NO PCP IN THE AREA. CM CONTACTED [facility] IN [place], [place] AND SPOKE WITH MEDICAL RECORDS AND REQUESTED MEDICAL RECORDS. FAX NUMBER GIVEN OF [phone]. AWAITING FAX. Addendum: 03/25/21 at 1424 by Sisi Daniel RN,Case Managemen RN CM RECEIVED FAX FROM [facility] OF PATIENT'S MEDICAL RECORDS. COPY MADE FOR MEDICAL RECORDS AND COPY GIVEN TO DR RAHUL PADILLA REQUESTED. Addendum: 03/29/21 at 1448 by Sisi Daniel RN,Case Managemen RN CM INFORMED BY CHATA FOWLER THAT PATIENT HAS DECIDED TO HAVE HOME HEALTH. PATIENT NEW TO [place] AND REQUEST CASE MANAGEMENT ASSIST. PER ROTATION REFERRAL MADE TO [facility] [place] [facility] FAXED TO [phone]. FAX CONFIRMATION CONFIRMED COMPLETE AND CM SPOKE WITH [email or web address] AND VERIFED REFERRAL SENT AND PATIENT REFERRAL ACCEPTED.
[2021-03-25] MEDS: NORCO 10MG PO PRN (11:05)
[2021-03-25] MEDS ORDERED: TYLENOL PO PRN (11:30)
[2021-03-25 12:21] VITALS: BP 147/88
--- NOTE | 2021-03-25 13:04 | PRM.PN ---
Subjective Subjective Date: Mar 25, 2021 Time: 12:59 Subjective Pt was evaluated by PT She is independent with ambulation using a walker Afebrile Vss Pt is being treated by her operating surgeon with half-way antibiotic suppression for her infected total knee Pt is not a surgical candidate by myself at this time If family is unable to care for the pt she should be discharged to [facility] for half-way care Patient History: Asthma G8 MOTHER FH: alcoholism G8 MOTHER No known health problems G8 FATHER 19 CHILD 19 CHILD 19 CHILD 19 CHILD 19 CHILD VTE VTE Risk Total Score: >5 VTE Risk Score VTE Risk: Score 0-1 = Low Risk (Aggressive mobilization; early ambulation; no VTE prophylaxis required) Score 2: Moderate Risk (Intermittent/Pneumatic Compression Device OR Lovenox/Heparin/Coumadin) Score 3-4: High Risk (Intermittent/Pneumatic Compression Device AND Lovenox/Heparin/Coumadin) Score > or =5: Highest Risk (Intermittent/Pneumatic Compression Device AND Lovenox/Heparin/Coumadin) Antico:Hep/LMWH/Coum/Xarelto: Yes Mechanical device ordered: No Review of Systems Constitutional: Fever (subjective), Weakness, Malaise; No: Chills, Sweats Eyes: No: Pain, Vision change Respiratory: No: Cough, Shortness of breath, Wheezing Cardiovascular: No: Chest Pain, Palpitations, Orthopnea, Lt Headedness Gastrointestinal: Nausea; No: Vomiting, Abdominal Pain, Diarrhea, Constipation Musculoskeletal: other (redness, swelling, warmth of left knee), leg pain (left knee pain and swelling) Skin: Bruising; No: Rash Neurological: Weakness; No: Numbness, Change in speech, Confusion Allergies: Coded Allergies: sulfamethoxazole (Verified Allergy, Intermediate, 03/24/21) trimethoprim (Verified Allergy, Intermediate, 03/24/21) Penicillins (Verified Allergy, Unknown, Rash, 03/23/21) fentanyl (Verified Allergy, Unknown, 03/23/21) hydromorphone (Verified Allergy, Unknown, 03/23/21) Objective Vitals and I/O Vital Sign - Last 24 Hours 03/24/21 03/24/21 03/24/21 03/24/21 17:08 19:26 20:00 20:23 Temp 97.9 97.7 Pulse 82 86 82 Resp 16 16 16 B/P (MAP) 124/74 (91) 136/78 (97) Pulse Ox 90 92 90 O2 Delivery Nasal Cannula Nasal Cannula O2 Flow Rate 2.00 2.00 FiO2 28 03/24/21 03/25/21 03/25/21 03/25/21 23:55 04:25 07:30 08:44 Temp 98.1 97.5 98.4 Pulse 79 76 63 82 Resp 16 16 13 16 B/P (MAP) 111/65 (80) 124/70 (88) 135/81 (99) Pulse Ox 95 96 90 90 O2 Delivery Nasal Cannula O2 Flow Rate 2.00 FiO2 28 03/25/21 03/25/21 11:30 12:21 Temp 97.9 Pulse 78 Resp 15 B/P (MAP) 147/88 (107) Pulse Ox 94 O2 Delivery Nasal Cannula O2 Flow Rate 2.00 Intake and Output 03/25/21 07:00 Intake Total 630 ml Output Total 250 ml Balance 380 ml General: Alert, Oriented X3, Cooperative, No acute distress HEENT: Atraumatic, EOMI, Mucous membr. moist/pink Lungs: Clear to auscultation, Normal air movement, Other (no rales, no rhonchi, no wheezes) Heart: Regular rate, Normal S1, Normal S2, No murmurs Abdomen: Normal bowel sounds, Soft, No tenderness, No masses Extremities: No cyanosis, Normal pulses, Other (TTP left knee and 2cm proximal/distal, 2+ pitting edema 2cm proximal/distal to left knee and including left knee, erythema and warmth to left knee, unable to flex left knee past 30 degrees, left knee held in extension, sutures in places, s/p left knee total arthroplasty) Neuro: Normal speech, Sensation intact, Other (unable to bear weight on left leg, see extremity exam above) Psych/Mental Status: Mental status NL, Mood NL All Results(Lab/Rad) Laboratory Tests Test 03/23/21 21:27 03/23/21 22:05 03/24/21 05:25 White Blood Count 8.4 10^3/uL 9.4 10^3/uL Red Blood Count 3.85 10^6/uL 3.52 10^6/uL Hemoglobin 12.0 g/dL 11.0 g/dL Hematocrit 38.1 % 34.1 % Mean Corpuscular Volume 99.0 fL 96.9 fL Mean Corpuscular Hemoglobin 31.2 pg 31.3 pg Mean Corpuscular Hemoglobin Concent 31.5 g/dL 32.3 g/dL Red Cell Distribution Width 18.4 % 18.2 % Platelet Count 328 10^3/uL 297 10^3/uL Mean Platelet Volume 9.0 fL 9.2 fL Neutrophils (%) (Auto) 66.6 % 67.0 % Lymphocytes (%) (Auto) 15.8 % 13.7 % Monocytes (%) (Auto) 13.4 % 14.3 % Neutrophils # (Auto) 5.6 10^3/uL 6.3 10^3/uL Lymphocytes # (Auto) 1.32 10^3/uL1 1.29 10^3/uL1 Monocytes # (Auto) 1.1 10^3/uL 1.3 10^3/uL Absolute Immature Granulocyte (auto 0.07 10^3 u/L 0.03 10^3 u/L Absolute Eosinophils (auto) 0.3 10^3/uL 0.4 10^3/uL Immature Granulocytes % 0.80 % 0.30 % Eosinophils % 3.8 % 4.5 % Basophils % 0.4 % 0.5 % Basophils # 0.0 10^3/uL 0.1 10^3/uL Erythrocyte Sedimentation Rate 35 mm/hr Prothrombin Time 14.3 SEC Prothrombin Time INR (Non-Therap) 1.3 Activated Partial Thromboplast Time 33.4 SEC Sodium Level 133 mmol/L 139 mmol/L Potassium Level 3.6 mmol/L 3.9 mmol/L Chloride Level 100.0 mmol/L 105.0 mmol/L Carbon Dioxide Level 29.5 mmol/L 29.8 mmol/L Anion Gap 7.1 8.1 Blood Urea Nitrogen 10 mg/dL 10 mg/dL Creatinine 0.90 mg/dL 0.86 mg/dL Estimated GFR () 73.9 77.8 Est GFR (CKD-EPI)(Non-Afr [place]) 61.0 64.3 BUN/Creatinine Ratio 11.0 11.0 Glucose Level 108 mg/dL 101 mg/dL Lactic Acid Level 1.0 mmol/L Calcium Level 9.0 mg/dL 8.9 mg/dL Total Bilirubin 0.9 mg/dL 0.6 mg/dL Aspartate Amino Transf (AST/SGOT) 18 U/L 17 U/L Alanine Aminotransferase (ALT/SGPT) 24 U/L 21 U/L Alkaline Phosphatase 90 U/L 71 U/L Total Creatine Kinase 27 U/L Creatine Kinase MB 1.2 ng/mL Troponin I < 0.02 ng/mL C-Reactive Protein 7.78 mg/dL Pro-B-Type Natriuretic Peptide 816 pg/mL Total Protein 7.5 g/dL 6.3 g/dL Albumin 3.1 g/dL 2.5 g/dL Globulin 4.4 3.8 Albumin/Globulin Ratio 0.704 0.657 Procalcitonin < 0.05 ng/mL SARS-CoV-2 Antigen (Rapid) NEGATIVE Current Medications Medications (Trade) Dose Ordered Sig/Mj Route PRN Reason Start Time Stop Time Status Last Admin Dose Admin Ceftriaxone Sodium 2000 mg/ Sodium Chloride 100 ml @ 100 mls/hr OT IV 03/23/21 23:00 04/22/21 22:59 03/23/21 23:38 Vancomycin HCl 2 gm/Sodium Chloride 250 ml @ 175 mls/hr OT ONCE IV 03/23/21 23:00 03/24/21 02:38 DC Sodium Chloride 100 ml @ ud STK-MED ONCE IV 03/23/21 23:30 03/23/21 23:30 DC Ceftriaxone Sodium (Rocephin) 2,000 mg STK-MED ONCE .ROUTE 03/23/21 23:30 03/23/21 23:30 DC Acetaminophen (Tylenol) 325 mg Q4H PRN PO PAIN 1 - 3 03/23/21 23:30 04/22/21 23:29 Pantoprazole Sodium (Protonix) 40 mg DAILY PO 03/24/21 09:00 04/23/21 08:59 03/24/21 08:18 Morphine Sulfate (Morphine Sulfate) 2 mg Q4H PRN IV PAIN 7 - 10 03/23/21 23:45 04/22/21 23:44 Ondansetron HCl (Zofran) 4 mg Q4H PRN IV NAUSEA / VOMITING 03/23/21 23:30 04/22/21 23:29 Sodium Chloride 100 ml @ ud STK-MED ONCE IV 03/23/21 23:32 03/23/21 23:33 DC Vancomycin HCl 1 gm/Sodium Chloride 250 ml @ 175 mls/hr Q12HR ONCE IV 03/24/21 09:00 03/24/21 09:28 DC Ceftriaxone Sodium 2000 mg/ Sodium Chloride 100 ml @ 100 mls/hr Q24HRS IV 03/24/21 23:00 04/23/21 22:59 Enoxaparin Sodium (Lovenox) 40 mg Q24HRS SQ 03/24/21 09:00 04/23/21 08:59 03/24/21 08:18 Vancomycin HCl 2 ml @ ud STK-MED ONCE .ROUTE 03/24/21 01:48 03/24/21 01:49 DC Sodium Chloride 500 ml @ ud STK-MED ONCE IV 03/24/21 01:50 03/24/21 01:50 DC Vancomycin HCl 2 ml @ ud STK-MED ONCE .ROUTE 03/24/21 02:14 03/24/21 02:15 DC Sodium Chloride 500 ml @ ud STK-MED ONCE IV 03/24/21 02:15 03/24/21 02:15 DC Vancomycin HCl 2 gm/Sodium Chloride 500 ml @ 175 mls/hr OT ONCE IV 03/24/21 03:00 03/24/21 09:28 DC Vancomycin HCl 2 gm/Sodium Chloride 500 ml @ 175 mls/hr OT ONCE IV 03/24/21 03:00 03/24/21 08:12 DC 03/24/21 02:48 Vancomycin HCl 1 gm/Sodium Chloride 250 ml @ 175 mls/hr Q12H IV 03/24/21 15:00 04/23/21 14:59 Course Sepsis Screening Results: Posi: POSITIVE Sepsis Qualifier/Stage: SEPSIS RISK Duration or Total Time Spent w: 30mins Vitals & review Data Vital Sign - Last 24 Hours 03/24/21 03/24/21 03/24/21 03/24/21 17:08 19:26 20:00 20:23 Temp 97.9 97.7 Pulse 82 86 82 Resp 16 16 16 B/P (MAP) 124/74 (91) 136/78 (97) Pulse Ox 90 92 90 O2 Delivery Nasal Cannula Nasal Cannula O2 Flow Rate 2.00 2.00 FiO2 28 03/24/21 03/25/21 03/25/21 03/25/21 23:55 04:25 07:30 08:44 Temp 98.1 97.5 98.4 Pulse 79 76 63 82 Resp 16 16 13 16 B/P (MAP) 111/65 (80) 124/70 (88) 135/81 (99) Pulse Ox 95 96 90 90 O2 Delivery Nasal Cannula O2 Flow Rate 2.00 FiO2 28 03/25/21 03/25/21 11:30 12:21 Temp 97.9 Pulse 78 Resp 15 B/P (MAP) 147/88 (107) Pulse Ox 94 O2 Delivery Nasal Cannula O2 Flow Rate 2.00 Intake and Output 03/25/21 07:00 Intake Total 630 ml Output Total 250 ml Balance 380 ml Laboratory Tests Test 03/23/21 21:27 03/23/21 22:05 03/24/21 05:25 03/25/21 04:51 White Blood Count 8.4 10^3/uL 9.4 10^3/uL 7.3 10^3/uL Red Blood Count 3.85 10^6/uL 3.52 10^6/uL 3.13 10^6/uL Hemoglobin 12.0 g/dL 11.0 g/dL 9.8 g/dL Hematocrit 38.1 % 34.1 % 30.7 % Mean Corpuscular Volume 99.0 fL 96.9 fL 98.1 fL Mean Corpuscular Hemoglobin 31.2 pg 31.3 pg 31.3 pg Mean Corpuscular Hemoglobin Concent 31.5 g/dL 32.3 g/dL 31.9 g/dL Red Cell Distribution Width 18.4 % 18.2 % 18.2 % Platelet Count 328 10^3/uL 297 10^3/uL 260 10^3/uL Mean Platelet Volume 9.0 fL 9.2 fL 10.0 fL Neutrophils (%) (Auto) 66.6 % 67.0 % 59.1 % Lymphocytes (%) (Auto) 15.8 % 13.7 % 17.1 % Monocytes (%) (Auto) 13.4 % 14.3 % 17.0 % Neutrophils # (Auto) 5.6 10^3/uL 6.3 10^3/uL 4.3 10^3/uL Lymphocytes # (Auto) 1.32 10^3/uL1 1.29 10^3/uL1 1.24 10^3/uL1 Monocytes # (Auto) 1.1 10^3/uL 1.3 10^3/uL 1.2 10^3/uL Absolute Immature Granulocyte (auto 0.07 10^3 u/L 0.03 10^3 u/L 0.04 10^3 u/L Absolute Eosinophils (auto) 0.3 10^3/uL 0.4 10^3/uL 0.4 10^3/uL Immature Granulocytes % 0.80 % 0.30 % 0.60 % Eosinophils % 3.8 % 4.5 % 6.1 % Basophils % 0.4 % 0.5 % 0.7 % Basophils # 0.0 10^3/uL 0.1 10^3/uL 0.1 10^3/uL Erythrocyte Sedimentation Rate 35 mm/hr Prothrombin Time 14.3 SEC Prothrombin Time INR (Non-Therap) 1.3 Activated Partial Thromboplast Time 33.4 SEC Sodium Level 133 mmol/L 139 mmol/L 139 mmol/L Potassium Level 3.6 mmol/L 3.9 mmol/L 3.5 mmol/L Chloride Level 100.0 mmol/L 105.0 mmol/L 107.0 mmol/L Carbon Dioxide Level 29.5 mmol/L 29.8 mmol/L 27.3 mmol/L Anion Gap 7.1 8.1 8.2 Blood Urea Nitrogen 10 mg/dL 10 mg/dL 9 mg/dL Creatinine 0.90 mg/dL 0.86 mg/dL 0.83 mg/dL Estimated GFR () 73.9 77.8 81.1 Est GFR (CKD-EPI)(Non-Afr [place]) 61.0 64.3 67.0 BUN/Creatinine Ratio 11.0 11.0 10.0 Glucose Level 108 mg/dL 101 mg/dL 85 mg/dL Lactic Acid Level 1.0 mmol/L Calcium Level 9.0 mg/dL 8.9 mg/dL 8.2 mg/dL Total Bilirubin 0.9 mg/dL 0.6 mg/dL 0.3 mg/dL Aspartate Amino Transf (AST/SGOT) 18 U/L 17 U/L 20 U/L Alanine Aminotransferase (ALT/SGPT) 24 U/L 21 U/L 18 U/L Alkaline Phosphatase 90 U/L 71 U/L 59 U/L Total Creatine Kinase 27 U/L Creatine Kinase MB 1.2 ng/mL Troponin I < 0.02 ng/mL C-Reactive Protein 7.78 mg/dL Pro-B-Type Natriuretic Peptide 816 pg/mL Total Protein 7.5 g/dL 6.3 g/dL 5.7 g/dL Albumin 3.1 g/dL 2.5 g/dL 2.1 g/dL Globulin 4.4 3.8 3.6 Albumin/Globulin Ratio 0.704 0.657 0.583 Procalcitonin < 0.05 ng/mL SARS-CoV-2 Antigen (Rapid) NEGATIVE Current Medications Medications (Trade) Dose Ordered Sig/Mj PRN Reason Start Time Stop Time Status Last Admin Acetaminophen (Tylenol) 1,000 mg Q6HR PRN PAIN 1 - 3 03/25/21 11:30 04/22/21 23:29 Acetaminophen/ Hydrocodone Bitart ([place] 10mg) 1 each Q4H PRN PAIN 7 - 10 03/24/21 16:30 04/23/21 16:29 03/25/21 11:05 Ceftriaxone Sodium 2000 mg/ Sodium Chloride 100 ml @ 100 mls/hr Q24HRS 03/24/21 23:00 04/23/21 22:59 03/24/21 23:01 Enoxaparin Sodium (Lovenox) 40 mg Q24HRS 03/24/21 09:00 04/23/21 08:59 03/25/21 08:16 Ondansetron HCl (Zofran) 4 mg Q4H PRN NAUSEA / VOMITING 03/23/21 23:30 04/22/21 23:29 Pantoprazole Sodium (Protonix) 40 mg DAILY 03/24/21 09:00 04/23/21 08:59 03/25/21 08:16 Vancomycin HCl 1 gm/Sodium Chloride 250 ml @ 175 mls/hr Q12H 03/24/21 15:00 04/23/21 14:59 03/25/21 04:00 LEVEL 1 SEPSIS INFECTION CRITE: ABX Therapy LEVEL 2-SIRS (LIST ALL THAT AP: None/Not assessed Cardiovascular Evidence: Not Assessed or None Hematologic Evidence: None/Not assessed Hepatic Evidence: None/Not assessed Metabolic Evidence: None/Not assessed Neurological Evidence: None/Not assessed Respiratory Evidence: Need for O2 to keep>90% Renal Evidence: None/Not assessed O2 Sat by Pulse Oximetry: 94 Oxygen Flow Rate: 2.00 Assessment/Plan Assessment/Plan Assessment/Plan 75yoF w/ extensive medical hx most recently left total knee arhtorplasty 7mn ago w/ 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 Admitting for septic arthritis of left knee s/p total arthroplasty. Will manage chronic conditions as below, patient did not bring home med list with but will obtsin from her daughter in AM. Problems: (1) Septic arthritis Status: Chronic Assessment & Plan: Acute exacerbation of chronic left knee spetic arthritis. S/p left knee total arthroplasty 7 mn ago, just released from rehab in [place], [place] yesterday and brought down to [place] by her daughter. ESR and CRP elevated, WBC normal. Vitals stable. XR left knee positive for subQ edema and small joint effusion, s/p total arthroplasty. -vancomycin and rocephin -consult ortho and ID COMPLICATION TYPE: W/ ACUTE EXACERBATION ICD Code: M00.9 - Pyogenic arthritis, unspecified SNOMED: 116194884 (2) Atrial fibrillation Status: Chronic Assessment & Plan: EKG: normal sinus rhythm -continue home meds when known ICD Code: I48.91 - Unspecified atrial fibrillation SNOMED: 40005417 (3) CAD (coronary artery disease) Status: Chronic Assessment & Plan: No hx of stents or CABG. s/p ME x 4. -continue home meds when known ICD Code: I25.10 - Atherosclerotic heart disease of [place] coronary artery without angina pectoris SNOMED: 82852427 (4) COPD (chronic obstructive pulmonary disease) Status: Chronic Assessment & Plan: Doing well on 2L NC, denies SOB, cough, wheezing, Does not use supplemental O2 at baseline. -continue home meds when known ICD Code: J44.9 - Chronic obstructive pulmonary disease, unspecified SNOMED: 01927599 (5) Pulmonary fibrosis Status: Chronic Assessment & Plan: See COPD plan above. ICD Code: J84.10 - Pulmonary fibrosis, unspecified SNOMED: 79115284 (6) Morbid obesity with BMI of 40.0-44.9, adult Status: Chronic Assessment & Plan: BMI 43.9. Likely complicating rehab and healing of left knee. ICD Code: E66.01 - Morbid (severe) obesity due to excess calories; Z68.41 - Body mass index [BMI] 40.0-44.9, adult SNOMED: 686450484, 081974340, [id number] (7) History of ME (myocardial infarction) ICD Code: I25.2 - Old myocardial infarction SNOMED: 570918045 (8) History of stroke ICD Code: Z86.73 - Personal history of transient ischemic attack (TIA), and cerebral infarction without residual deficits LATOYA THOMAS MD Mar 25, 2021 13:04
[2021-03-25 15:17] VITALS: BP 155/79
[2021-03-25 20:19] VITALS: BP 147/82
[2021-03-25] MEDS: ROCEPHIN 2,000 MG in NS 100ML 100 ML IV SCH (22:30)
[2021-03-25 23:58] VITALS: BP 133/80
[2021-03-26] MEDS: VANCOMYCIN HCL 1 GM in NS 250ML 250 ML IV SCH ×2 (03:10→21:22)
[2021-03-26 03:54] VITALS: BP 120/89
[2021-03-26 08:08] VITALS: BP 135/73
[2021-03-26] MEDS: LOVENOX SQ SCH (08:59)
[2021-03-26] MEDS: PROTONIX PO SCH (08:59)
[2021-03-26] MEDS: NORCO 10MG PO PRN ×2 (12:10→21:29)
[2021-03-26 12:35] VITALS: BP 128/71
[2021-03-26] MEDS ORDERED: DICL100G29 TP (13:24)
[2021-03-26] MEDS ORDERED: RIVA20TA PO (13:24)
[2021-03-26] MEDS ORDERED: VILA40TA PO (13:24)
[2021-03-26] MEDS ORDERED: CEFD300C2 PO (13:24)
[2021-03-26] MEDS ORDERED: DOXY100C5 PO (13:24)
--- NOTE | 2021-03-26 13:31 | PRM.PN ---
Subjective Subjective Date: Mar 26, 2021 Time: 12:45 Subjective Patient seen at bedside walking with walker to the restroom, she reports her legs were stiffer when she came but has improved now. However leg still feels weak. Reports pain and stiffness after a 10hr journey via car from [place] to [place] with her daughter and son in law. Ambulance was called as soon as they arrived home to bring her to the hospital Patient History: Asthma G8 MOTHER FH: alcoholism G8 MOTHER No known health problems G8 FATHER 19 CHILD 19 CHILD 19 CHILD 19 CHILD 19 CHILD VTE VTE Risk Total Score: >5 VTE Risk Score VTE Risk: Score 0-1 = Low Risk (Aggressive mobilization; early ambulation; no VTE prophylaxis required) Score 2: Moderate Risk (Intermittent/Pneumatic Compression Device OR Lovenox/Heparin/Coumadin) Score 3-4: High Risk (Intermittent/Pneumatic Compression Device AND Lovenox/Heparin/Coumadin) Score > or =5: Highest Risk (Intermittent/Pneumatic Compression Device AND Lovenox/Heparin/Coumadin) Antico:Hep/LMWH/Coum/Xarelto: Yes Mechanical device ordered: No Review of Systems Constitutional: Fever (subjective), Weakness, Malaise; No: Chills, Sweats Eyes: No: Pain, Vision change ENT: Nose pain Respiratory: No: Cough, Shortness of breath, Wheezing Cardiovascular: No: Chest Pain, Palpitations, Orthopnea, Lt Headedness Gastrointestinal: Nausea; No: Vomiting, Abdominal Pain, Diarrhea, Constipation Musculoskeletal: other (redness, swelling, warmth of left knee), leg pain (left knee pain and swelling) Skin: Bruising; No: Rash Neurological: Weakness; No: Numbness, Change in speech, Confusion Allergies: Coded Allergies: sulfamethoxazole (Verified Allergy, Intermediate, 03/24/21) trimethoprim (Verified Allergy, Intermediate, 03/24/21) Penicillins (Verified Allergy, Unknown, Rash, 03/23/21) fentanyl (Verified Allergy, Unknown, 03/23/21) hydromorphone (Verified Allergy, Unknown, 03/23/21) Scheduled Albuterol Sulfate (Proair Respiclick), 90 MCG IH Q4, (Reported) Amiodarone HCl (Amiodarone HCl), 2 TAB PO QD, (Reported) Budesonide/Formoterol Fumarate (Symbicort 160-4.5 Mcg Inhaler), 2 PUFF IH DAILY24, (Reported) Cefdinir (Cefdinir), 1 CAP PO BID, (Reported) Doxycycline Hyclate (Doxycycline Hyclate), 1 CAP PO BID, (Reported) Rivaroxaban (Xarelto), 1 TAB PO DAILY24, (Reported) Vilazodone Hydrochloride (Viibryd), 1 TAB PO DAILY, (Reported) Scheduled PRN Diclofenac Sodium (Diclofenac Sodium), 100 GM TP Q6HR PRN for PAIN 1 - 3, (Reported) Objective Vitals and I/O Vital Sign - Last 24 Hours 03/26/21 03/26/21 03/26/21 08:08 08:10 10:18 Temp 97.9 Pulse 76 76 Resp 18 18 B/P (MAP) 135/73 (93) Pulse Ox 98 98 O2 Delivery Nasal Cannula Nasal Cannula O2 Flow Rate 2.00 2.00 FiO2 28 General: Alert, Oriented X3, Cooperative, No acute distress HEENT: Atraumatic, EOMI, Mucous membr. moist/pink Lungs: Clear to auscultation, Normal air movement, Other (no rales, no rhonchi, no wheezes) Heart: Regular rate, Normal S1, Normal S2, No murmurs Abdomen: Normal bowel sounds, Soft, No tenderness, No masses Extremities: No cyanosis, Normal pulses, Other (TTP left knee and 2cm proximal/distal, 2+ pitting edema 2cm proximal/distal to left knee and including left knee, erythema and warmth to left knee, unable to flex left knee past 30 degrees, left knee held in extension, sutures in places, s/p left knee total arthroplasty) Skin: Other (dry scab on left knee surgical site ) Neuro: Normal speech, Sensation intact, Other (unable to bear weight on left leg, see extremity exam above,) Psych/Mental Status: Mood NL, Other (depressed affect) All Results(Lab/Rad) Laboratory Tests Test 03/23/21 21:27 03/23/21 22:05 03/24/21 05:25 White Blood Count 8.4 10^3/uL 9.4 10^3/uL Red Blood Count 3.85 10^6/uL 3.52 10^6/uL Hemoglobin 12.0 g/dL 11.0 g/dL Hematocrit 38.1 % 34.1 % Mean Corpuscular Volume 99.0 fL 96.9 fL Mean Corpuscular Hemoglobin 31.2 pg 31.3 pg Mean Corpuscular Hemoglobin Concent 31.5 g/dL 32.3 g/dL Red Cell Distribution Width 18.4 % 18.2 % Platelet Count 328 10^3/uL 297 10^3/uL Mean Platelet Volume 9.0 fL 9.2 fL Neutrophils (%) (Auto) 66.6 % 67.0 % Lymphocytes (%) (Auto) 15.8 % 13.7 % Monocytes (%) (Auto) 13.4 % 14.3 % Neutrophils # (Auto) 5.6 10^3/uL 6.3 10^3/uL Lymphocytes # (Auto) 1.32 10^3/uL1 1.29 10^3/uL1 Monocytes # (Auto) 1.1 10^3/uL 1.3 10^3/uL Absolute Immature Granulocyte (auto 0.07 10^3 u/L 0.03 10^3 u/L Absolute Eosinophils (auto) 0.3 10^3/uL 0.4 10^3/uL Immature Granulocytes % 0.80 % 0.30 % Eosinophils % 3.8 % 4.5 % Basophils % 0.4 % 0.5 % Basophils # 0.0 10^3/uL 0.1 10^3/uL Erythrocyte Sedimentation Rate 35 mm/hr Prothrombin Time 14.3 SEC Prothrombin Time INR (Non-Therap) 1.3 Activated Partial Thromboplast Time 33.4 SEC Sodium Level 133 mmol/L 139 mmol/L Potassium Level 3.6 mmol/L 3.9 mmol/L Chloride Level 100.0 mmol/L 105.0 mmol/L Carbon Dioxide Level 29.5 mmol/L 29.8 mmol/L Anion Gap 7.1 8.1 Blood Urea Nitrogen 10 mg/dL 10 mg/dL Creatinine 0.90 mg/dL 0.86 mg/dL Estimated GFR () 73.9 77.8 Est GFR (CKD-EPI)(Non-Afr Croatian) 61.0 64.3 BUN/Creatinine Ratio 11.0 11.0 Glucose Level 108 mg/dL 101 mg/dL Lactic Acid Level 1.0 mmol/L Calcium Level 9.0 mg/dL 8.9 mg/dL Total Bilirubin 0.9 mg/dL 0.6 mg/dL Aspartate Amino Transf (AST/SGOT) 18 U/L 17 U/L Alanine Aminotransferase (ALT/SGPT) 24 U/L 21 U/L Alkaline Phosphatase 90 U/L 71 U/L Total Creatine Kinase 27 U/L Creatine Kinase MB 1.2 ng/mL Troponin I < 0.02 ng/mL C-Reactive Protein 7.78 mg/dL Pro-B-Type Natriuretic Peptide 816 pg/mL Total Protein 7.5 g/dL 6.3 g/dL Albumin 3.1 g/dL 2.5 g/dL Globulin 4.4 3.8 Albumin/Globulin Ratio 0.704 0.657 Procalcitonin < 0.05 ng/mL SARS-CoV-2 Antigen (Rapid) NEGATIVE Current Medications Medications (Trade) Dose Ordered Sig/Mj Route PRN Reason Start Time Stop Time Status Last Admin Dose Admin Ceftriaxone Sodium 2000 mg/ Sodium Chloride 100 ml @ 100 mls/hr OT IV 03/23/21 23:00 04/22/21 22:59 03/23/21 23:38 Vancomycin HCl 2 gm/Sodium Chloride 250 ml @ 175 mls/hr OT ONCE IV 03/23/21 23:00 03/24/21 02:38 DC Sodium Chloride 100 ml @ ud STK-MED ONCE IV 03/23/21 23:30 03/23/21 23:30 DC Ceftriaxone Sodium (Rocephin) 2,000 mg STK-MED ONCE .ROUTE 03/23/21 23:30 03/23/21 23:30 DC Acetaminophen (Tylenol) 325 mg Q4H PRN PO PAIN 1 - 3 03/23/21 23:30 04/22/21 23:29 Pantoprazole Sodium (Protonix) 40 mg DAILY PO 03/24/21 09:00 04/23/21 08:59 03/24/21 08:18 Morphine Sulfate (Morphine Sulfate) 2 mg Q4H PRN IV PAIN 7 - 10 03/23/21 23:45 04/22/21 23:44 Ondansetron HCl (Zofran) 4 mg Q4H PRN IV NAUSEA / VOMITING 03/23/21 23:30 04/22/21 23:29 Sodium Chloride 100 ml @ ud STK-MED ONCE IV 03/23/21 23:32 03/23/21 23:33 DC Vancomycin HCl 1 gm/Sodium Chloride 250 ml @ 175 mls/hr Q12HR ONCE IV 03/24/21 09:00 03/24/21 09:28 DC Ceftriaxone Sodium 2000 mg/ Sodium Chloride 100 ml @ 100 mls/hr Q24HRS IV 03/24/21 23:00 04/23/21 22:59 Enoxaparin Sodium (Lovenox) 40 mg Q24HRS SQ 03/24/21 09:00 04/23/21 08:59 03/24/21 08:18 Vancomycin HCl 2 ml @ ud STK-MED ONCE .ROUTE 03/24/21 01:48 03/24/21 01:49 DC Sodium Chloride 500 ml @ ud STK-MED ONCE IV 03/24/21 01:50 03/24/21 01:50 DC Vancomycin HCl 2 ml @ ud STK-MED ONCE .ROUTE 03/24/21 02:14 03/24/21 02:15 DC Sodium Chloride 500 ml @ ud STK-MED ONCE IV 03/24/21 02:15 03/24/21 02:15 DC Vancomycin HCl 2 gm/Sodium Chloride 500 ml @ 175 mls/hr OT ONCE IV 03/24/21 03:00 03/24/21 09:28 DC Vancomycin HCl 2 gm/Sodium Chloride 500 ml @ 175 mls/hr OT ONCE IV 03/24/21 03:00 03/24/21 08:12 DC 03/24/21 02:48 Vancomycin HCl 1 gm/Sodium Chloride 250 ml @ 175 mls/hr Q12H IV 03/24/21 15:00 04/23/21 14:59 Course Sepsis Screening Results: Posi: POSITIVE Sepsis Qualifier/Stage: SEPSIS RISK DATE SEEN BY PHYSICIAN: Mar 26, 2021 TIME SEEN BY PROVIDER: 12:45 Duration or Total Time Spent w: 30mins Vitals & review Data Vital Sign - Last 24 Hours 03/24/21 03/24/21 03/24/21 03/24/21 17:08 19:26 20:00 20:23 Temp 97.9 97.7 Pulse 82 86 82 Resp 16 16 16 B/P (MAP) 124/74 (91) 136/78 (97) Pulse Ox 90 92 90 O2 Delivery Nasal Cannula Nasal Cannula O2 Flow Rate 2.00 2.00 FiO2 28 03/24/21 03/25/21 03/25/21 03/25/21 23:55 04:25 07:30 08:44 Temp 98.1 97.5 98.4 Pulse 79 76 63 82 Resp 16 16 13 16 B/P (MAP) 111/65 (80) 124/70 (88) 135/81 (99) Pulse Ox 95 96 90 90 O2 Delivery Nasal Cannula O2 Flow Rate 2.00 FiO2 28 03/25/21 03/25/21 11:30 12:21 Temp 97.9 Pulse 78 Resp 15 B/P (MAP) 147/88 (107) Pulse Ox 94 O2 Delivery Nasal Cannula O2 Flow Rate 2.00 Intake and Output 03/25/21 07:00 Intake Total 630 ml Output Total 250 ml Balance 380 ml Laboratory Tests Test 03/23/21 21:27 03/23/21 22:05 03/24/21 05:25 03/25/21 04:51 White Blood Count 8.4 10^3/uL 9.4 10^3/uL 7.3 10^3/uL Red Blood Count 3.85 10^6/uL 3.52 10^6/uL 3.13 10^6/uL Hemoglobin 12.0 g/dL 11.0 g/dL 9.8 g/dL Hematocrit 38.1 % 34.1 % 30.7 % Mean Corpuscular Volume 99.0 fL 96.9 fL 98.1 fL Mean Corpuscular Hemoglobin 31.2 pg 31.3 pg 31.3 pg Mean Corpuscular Hemoglobin Concent 31.5 g/dL 32.3 g/dL 31.9 g/dL Red Cell Distribution Width 18.4 % 18.2 % 18.2 % Platelet Count 328 10^3/uL 297 10^3/uL 260 10^3/uL Mean Platelet Volume 9.0 fL 9.2 fL 10.0 fL Neutrophils (%) (Auto) 66.6 % 67.0 % 59.1 % Lymphocytes (%) (Auto) 15.8 % 13.7 % 17.1 % Monocytes (%) (Auto) 13.4 % 14.3 % 17.0 % Neutrophils # (Auto) 5.6 10^3/uL 6.3 10^3/uL 4.3 10^3/uL Lymphocytes # (Auto) 1.32 10^3/uL1 1.29 10^3/uL1 1.24 10^3/uL1 Monocytes # (Auto) 1.1 10^3/uL 1.3 10^3/uL 1.2 10^3/uL Absolute Immature Granulocyte (auto 0.07 10^3 u/L 0.03 10^3 u/L 0.04 10^3 u/L Absolute Eosinophils (auto) 0.3 10^3/uL 0.4 10^3/uL 0.4 10^3/uL Immature Granulocytes % 0.80 % 0.30 % 0.60 % Eosinophils % 3.8 % 4.5 % 6.1 % Basophils % 0.4 % 0.5 % 0.7 % Basophils # 0.0 10^3/uL 0.1 10^3/uL 0.1 10^3/uL Erythrocyte Sedimentation Rate 35 mm/hr Prothrombin Time 14.3 SEC Prothrombin Time INR (Non-Therap) 1.3 Activated Partial Thromboplast Time 33.4 SEC Sodium Level 133 mmol/L 139 mmol/L 139 mmol/L Potassium Level 3.6 mmol/L 3.9 mmol/L 3.5 mmol/L Chloride Level 100.0 mmol/L 105.0 mmol/L 107.0 mmol/L Carbon Dioxide Level 29.5 mmol/L 29.8 mmol/L 27.3 mmol/L Anion Gap 7.1 8.1 8.2 Blood Urea Nitrogen 10 mg/dL 10 mg/dL 9 mg/dL Creatinine 0.90 mg/dL 0.86 mg/dL 0.83 mg/dL Estimated GFR () 73.9 77.8 81.1 Est GFR (CKD-EPI)(Non-Afr Croatian) 61.0 64.3 67.0 BUN/Creatinine Ratio 11.0 11.0 10.0 Glucose Level 108 mg/dL 101 mg/dL 85 mg/dL Lactic Acid Level 1.0 mmol/L Calcium Level 9.0 mg/dL 8.9 mg/dL 8.2 mg/dL Total Bilirubin 0.9 mg/dL 0.6 mg/dL 0.3 mg/dL Aspartate Amino Transf (AST/SGOT) 18 U/L 17 U/L 20 U/L Alanine Aminotransferase (ALT/SGPT) 24 U/L 21 U/L 18 U/L Alkaline Phosphatase 90 U/L 71 U/L 59 U/L Total Creatine Kinase 27 U/L Creatine Kinase MB 1.2 ng/mL Troponin I < 0.02 ng/mL C-Reactive Protein 7.78 mg/dL Pro-B-Type Natriuretic Peptide 816 pg/mL Total Protein 7.5 g/dL 6.3 g/dL 5.7 g/dL Albumin 3.1 g/dL 2.5 g/dL 2.1 g/dL Globulin 4.4 3.8 3.6 Albumin/Globulin Ratio 0.704 0.657 0.583 Procalcitonin < 0.05 ng/mL SARS-CoV-2 Antigen (Rapid) NEGATIVE Current Medications Medications (Trade) Dose Ordered Sig/Mj PRN Reason Start Time Stop Time Status Last Admin Acetaminophen (Tylenol) 1,000 mg Q6HR PRN PAIN 1 - 3 03/25/21 11:30 04/22/21 23:29 Acetaminophen/ Hydrocodone Bitart ([place] 10mg) 1 each Q4H PRN PAIN 7 - 10 03/24/21 16:30 04/23/21 16:29 03/25/21 11:05 Ceftriaxone Sodium 2000 mg/ Sodium Chloride 100 ml @ 100 mls/hr Q24HRS 03/24/21 23:00 04/23/21 22:59 03/24/21 23:01 Enoxaparin Sodium (Lovenox) 40 mg Q24HRS 03/24/21 09:00 04/23/21 08:59 03/25/21 08:16 Ondansetron HCl (Zofran) 4 mg Q4H PRN NAUSEA / VOMITING 03/23/21 23:30 04/22/21 23:29 Pantoprazole Sodium (Protonix) 40 mg DAILY 03/24/21 09:00 04/23/21 08:59 03/25/21 08:16 Vancomycin HCl 1 gm/Sodium Chloride 250 ml @ 175 mls/hr Q12H 03/24/21 15:00 04/23/21 14:59 03/25/21 04:00 LEVEL 1 SEPSIS INFECTION CRITE: ABX Therapy LEVEL 2-SIRS (LIST ALL THAT AP: None/Not assessed Cardiovascular Evidence: Not Assessed or None Hematologic Evidence: None/Not assessed Hepatic Evidence: None/Not assessed Metabolic Evidence: None/Not assessed Neurological Evidence: None/Not assessed Respiratory Evidence: Need for O2 to keep>90% Renal Evidence: None/Not assessed O2 Sat by Pulse Oximetry: 98 Oxygen Flow Rate: 2.00 Assessment/Plan Assessment/Plan Assessment/Plan 75yoF w/ extensive medical hx most recently left total knee arhtorplasty 7mn ago w/ 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 noted Doxycycline and Ancef on her med list.) presented to ED with acute worsening of left knee pain, redness, warmth, and swelling. Admitting for septic arthritis of left knee s/p total arthroplasty. Will manage chronic conditions as below, patient did not bring home med list with but will obtain from her daughter in AM. (List seen on patient drawer 03/26/21 and restarted). Patient reports after a 10hr journey via car from [place] to [place] with her daughter and son in law her leg became stiff and Ambulance was called as soon as they arrived to the daughter's home to come to the hospital. She reports daughter has since not come by or called. ASSESSMENT/ PLAN (1) Septic arthritis Status: Chronic Assessment & Plan: Acute exacerbation of chronic left knee spetic arthritis. S/p left knee total arthroplasty 7 mn ago, just released from rehab in [place], [place] yesterday and brought down to [place] by her daughter. ESR and CRP elevated, WBC normal. Vitals stable. XR left knee positive for subQ edema and small joint effusion, s/p total arthroplasty. -vancomycin and Rocephin -consult ortho and ID COMPLICATION TYPE: W/ ACUTE EXACERBATION ICD Code: M00.9 - Pyogenic arthritis, unspecified SNOMED: 616693320 (2) Atrial fibrillation Status: Chronic Assessment & Plan: EKG: normal sinus rhythm -continue home meds when known.(list provided 03/26/21) ICD Code: I48.91 - Unspecified atrial fibrillation-resume home med eliquix and amiodarone SNOMED: 11569280 (3) CAD (coronary artery disease) Status: Chronic Assessment & Plan: No hx of stents or CABG. s/p DC x 4. -continue home meds ICD Code: I25.10 - Atherosclerotic heart disease of [place] coronary artery without angina pectoris SNOMED: 99953119 (4) COPD (chronic obstructive pulmonary disease)- resume home meds fluticasone, montelukast, Status: Chronic Assessment & Plan: Doing well on 2L NC, denies SOB, cough, wheezing, Does not use supplemental O2 at baseline. -continue home meds when known ICD Code: J44.9 - Chronic obstructive pulmonary disease, unspecified SNOMED: 74707085 (5) Pulmonary fibrosis Status: Chronic Assessment & Plan: See COPD plan above. ICD Code: J84.10 - Pulmonary fibrosis, unspecified SNOMED: 24810305 (6) Morbid obesity with BMI of 40.0-44.9, adult Status: Chronic Assessment & Plan: BMI 43.9. Likely complicating rehab and healing of left knee. ICD Code: E66.01 - Morbid (severe) obesity due to excess calories; Z68.41 - Body mass index [BMI] 40.0-44.9, adult SNOMED: 170029812, [id number], [id number] (7) History of DC (myocardial infarction) ICD Code: I25.2 - Old myocardial infarction- resume home meds SNOMED: 520242949 (8) History of stroke ICD Code: Z86.73 - Personal history of transient ischemic attack (TIA), and cerebral infarction without residual deficits - monitor - Financial Business [employer]st consult for placement. possible neglect DVT/GI prophylaxis- Eliquix/ Protonix Disposition: Discharge once case management finds placement and clinically stable KIT SOMMERS NP Mar 26, 2021 13:31
[2021-03-26] MEDS ORDERED: ALBU90AE IH (14:18)
[2021-03-26] MEDS ORDERED: AMIO100T4 PO (14:20)
[2021-03-26] MEDS ORDERED: BUDE10.2 IH (14:22)
[2021-03-26] MEDS ORDERED: BUSP10TA PO (14:28)
[2021-03-26] MEDS ORDERED: FLUT16SP (14:34)
[2021-03-26] MEDS ORDERED: GABA300C PO (14:34)
[2021-03-26] MEDS ORDERED: MONT10TA20 PO (14:35)
[2021-03-26] MEDS ORDERED: PANT40TA6 PO (14:41)
[2021-03-26 14:50] LABS: BASOPHIL % 0.4 % (0.0-0.2); EOSINOPHIL # 0.4 10^3/uL (0.0-0.2); EOSINOPHIL % 4.8 % (0.0-5.0); LYMPHOCYTES # 1.01 10^3/uL1 (1.0-4.8); LYMPHOCYTES % 13.9 % (24.0-44.0); MEAN CORP HGB 30.3 pg (26-34); MONOCYTES # 0.7 10^3/uL (0.3-0.8); MONOCYTES % 9.5 % (5.0-12.0); NEUTROPHIL # 5.2 10^3/uL (1.8-7.7); NEUTROPHILS % 71.3 % (41.0-85.0); PLATELET COUNT 286 10^3/uL (150-400); RED CELL DISTRIBUTION WIDTH 17.4 % (11.5-14.5)
--- NOTE | 2021-03-26 15:20 | PCM.HP ---
Assessment/Plan Assessment/Plan Assessment/Plan History of Present Illness History and physical on 03/24/2021. Reason for Visit: left knee septic arthritis History of Present Illness 75yoF w/ hx of A.fib, CAD s/p CO x 4 (no stents or CABG), stroke (20yrs ago), COPD, asthma, pulmonary fibrosis, CKD, and left total knee arthroplasty 7mn ago w/ resultant septic arthritis (on lifelong penicillin-derivative abx, patient d oes not remember name of abx at this time) presented to the ED for increased redness, warmth, and pain to left knee. Stated she was released from rehab in [place], [place] yesterday and her daughter drove her straight here. Since leaving rehab she has had increased redness and warmth in her left knee. States it is very difficult and painful to move, and when she got to the ED she could not bend her knee at all. Also endorsed malaise, weakness, and nausea. Denies DOWNS, dizziness, CP, SOB, vomiting, change in stools. THinks she has been running fever but has not checked her temp. Has been taking [place] w/o relief. Daughter brought her to the ED for further evaluation. ED course: WBC 8.4. CMP grossly normal. ESR 35, CRP 7.78. BNP 816. Procal < 0.05. Vitals stable. Left knee Xray: subcutaneous edema, small joint effusion, s/p total arthroplasty BLE US: negative for DVT. Unable to bear weight. Admitting for left knee septic arthritis s/p total knee arthroplasty 7 months ago, will consult ortho and ID. Past Medical History Cardiac: AFIB, CAD, CO Pulmonary: Asthma, COPD, Other (pulmonary fibrosis) [employer] INS[employer]OR: CVA (20yrs ago) GI: GERD Musculoskeletal: Chronic Low Back Pain, Other (s/p left knee replacement 6mn ago) Renal/: Chronic Renal Insuff Past Surgical History: Total knee replacement (left, 7mn ago) Past Social History Smoke: No Alcohol: none Drugs: None Lives: with Family Domestic Violence: Neg Review of Systems Constitutional: Fever (subjective), Weakness, Malaise; No: Chills, Sweats Eyes: No: Pain, Vision change Respiratory: No: Cough, Shortness of breath, Wheezing Cardiovascular: No: Chest Pain, Palpitations, Orthopnea, Lt Headedness Gastrointestinal: Nausea; No: Vomiting, Abdominal Pain, Diarrhea, Constipation Musculoskeletal: other (redness, swelling, warmth of left knee), back pain, leg pain Skin: Bruising; No: Rash Neurological: Weakness; No: Numbness, Change in speech, Confusion Allergies: Coded Allergies: Penicillins (Verified Allergy, Unknown, Rash, 03/23/21) codeine (Verified Allergy, Unknown, 03/23/21) fentanyl (Verified Allergy, Unknown, 03/23/21) hydromorphone (Verified Allergy, Unknown, 03/23/21) VTE VTE Risk Score VTE Risk: Score 0-1 = Low Risk (Aggressive mobilization; early ambulation; no VTE prophylaxis required) Score 2: Moderate Risk (Intermittent/Pneumatic Compression Device OR Lovenox/Heparin/Coumadin) Score 3-4: High Risk (Intermittent/Pneumatic Compression Device AND Lovenox/Heparin/Coumadin) Score > or =5: Highest Risk (Intermittent/Pneumatic Compression Device AND Lovenox/Heparin/Coumadin) Antico:Hep/LMWH/Coum/Xarelto: Yes Mechanical device ordered: No VTE VTE Present on Admission: No Currently receiving anticoagul: Yes Antico:Hep/LMWH/Coum/Xarelto: Yes Mechanical device ordered: No Protocol for Platelet Monitori: Following Clinical Path Exam Vital Signs First Vital Signs Date Time Temp Pulse Resp B/P (MAP) Pulse Ox O2 Delivery O2 Flow Rate FiO2 03/23/21 20:58 98.3 90 16 93 03/23/21 20:58 148/77 (100) Room Air 03/23/21 21:05 2.00 03/24/21 00:56 28 Last Vital Signs Date Time Temp Pulse Resp B/P (MAP) Pulse Ox O2 Delivery O2 Flow Rate FiO2 03/24/21 00:57 19 99 03/24/21 00:56 115 Nasal Cannula 2.00 28 03/23/21 23:38 98.5 132/78 (96) General Appearance: Alert, Oriented X3, Cooperative, No acute distress HEENT: Atraumatic, EOMI, Mucous membr. moist/pink Respiratory: Clear to auscultation, Normal air movement, Other (no rales, no rhonchi, no wheezes) Cardiovascular: Regular rate, Normal S1, Normal S2, No murmurs Abdominal: Normal bowel sounds, Soft, No tenderness, No masses Extremities: No cyanosis, Normal pulses, Other (TTP left knee and 2cm proximal/distal, 2+ pitting edema 2cm proximal/distal to left knee and including left knee, erythema and warmth to left knee, unable to flex left knee past 30 degrees, left knee held in extension, sutures in places, s/p left knee total arthroplasty) Skin: Other (erythema and warmth to left knee) Neuro: Normal speech, Sensation intact, Other (unable to bear weight on left leg, see extremity exam above) Psych/Mental Status: Mental status NL, Mood NL Assessment/Plan Assessment/Plan Assessment/Plan 75yoF w/ extensive medical hx most recently left total knee arhtorplasty 7mn ago w/ 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 Admitting for septic arthritis of left knee s/p total arthroplasty. Will manage chronic conditions as below, patient did not bring home med list with but will obtsin from her daughter in AM. Problems: (1) Septic arthritis Status: Chronic Assessment & Plan: Acute exacerbation of chronic left knee spetic arthritis. S/p left knee total arthroplasty 7 mn ago, just released from rehab in [place], [place] yesterday and brought down to [place] by her daughter. ESR and CRP elevated, WBC normal. Vitals stable. XR left knee positive for subQ edema and small joint effusion, s/p total arthroplasty. -vancomycin and rocephin -consult ortho and ID COMPLICATION TYPE: W/ ACUTE EXACERBATION ICD Code: M00.9 - Pyogenic arthritis, unspecified SNOMED: 102584000 (2) Atrial fibrillation Status: Chronic Assessment & Plan: EKG: normal sinus rhythm -continue home meds when known ICD Code: I48.91 - Unspecified atrial fibrillation SNOMED: 77155044 (3) CAD (coronary artery disease) Status: Chronic Assessment & Plan: No hx of stents or CABG. s/p CO x 4. -continue home meds when known ICD Code: I25.10 - Atherosclerotic heart disease of lime coronary artery without angina pectoris SNOMED: 43561994 (4) COPD (chronic obstructive pulmonary disease) Status: Chronic Assessment & Plan: Doing well on 2L NC, denies SOB, cough, wheezing, Does not use supplemental O2 at baseline. -continue home meds when known ICD Code: J44.9 - Chronic obstructive pulmonary disease, unspecified SNOMED: 97278736 (5) Pulmonary fibrosis Status: Chronic Assessment & Plan: See COPD plan above. ICD Code: J84.10 - Pulmonary fibrosis, unspecified SNOMED: 58174118 (6) Morbid obesity with BMI of 40.0-44.9, adult Status: Chronic Assessment & Plan: BMI 43.9. Likely complicating rehab and healing of left knee. ICD Code: E66.01 - Morbid (severe) obesity due to excess calories; Z68.41 - Body mass index [BMI] 40.0-44.9, adult SNOMED: 454834659, 209340627, 49076219946287 (7) History of CO (myocardial infarction) ICD Code: I25.2 - Old myocardial infarction SNOMED: 880035549 (8) History of stroke ICD Code: Z86.73 - Personal history of transient ischemic attack (TIA), and cerebral infarction without residual deficits SNOMED: 155478189 LAB RESULTS Blood Bank Test 03/23/21 21:27 Antibody Screen NEGATIVE Blood Type O POSITIVE Laboratory Tests Test 03/23/21 21:27 03/23/21 22:05 White Blood Count 8.4 10^3/uL (4.5-11.0) Red Blood Count 3.85 10^6/uL (4.00-5.20) Hemoglobin 12.0 g/dL (12.0-15.0) Hematocrit 38.1 % (36.0-46.0) Mean Corpuscular Volume 99.0 fL (78-100) Mean Corpuscular Hemoglobin 31.2 pg (26-34) Mean Corpuscular Hemoglobin Concent 31.5 g/dL (33-36.5) Red Cell Distribution Width 18.4 % (11.5-14.5) Platelet Count 328 10^3/uL (150-400) Mean Platelet Volume 9.0 fL (7.8-11.0) Neutrophils (%) (Auto) 66.6 % (41.0-85.0) Lymphocytes (%) (Auto) 15.8 % (24.0-44.0) Monocytes (%) (Auto) 13.4 % (5.0-12.0) Neutrophils # (Auto) 5.6 10^3/uL (1.8-7.7) Lymphocytes # (Auto) 1.32 10^3/uL1 (1.0-4.8) Monocytes # (Auto) 1.1 10^3/uL (0.3-0.8) Absolute Immature Granulocyte (auto 0.07 10^3 u/L (0-2) Absolute Eosinophils (auto) 0.3 10^3/uL (0.0-0.2) Immature Granulocytes % 0.80 % (0.00-0.50) Eosinophils % 3.8 % (0.0-5.0) Basophils % 0.4 % (0.0-0.2) Basophils # 0.0 10^3/uL (0.0-0.1) Erythrocyte Sedimentation Rate 35 mm/hr (0-20) Prothrombin Time 14.3 SEC (9.6-12.0) Prothrombin Time INR (Non-Therap) 1.3 Activated Partial Thromboplast Time 33.4 SEC (24.67-30.72) Sodium Level 133 mmol/L (132-145) Potassium Level 3.6 mmol/L (3.6-5.2) Chloride Level 100.0 mmol/L (96-109) Carbon Dioxide Level 29.5 mmol/L (20.0-32) Anion Gap 7.1 Blood Urea Nitrogen 10 mg/dL (7-18) Creatinine 0.90 mg/dL (0.59-1.40) Estimated GFR () 73.9 (>/=60) Est GFR (CKD-EPI)(Non-Afr [place]) 61.0 (>/=60) BUN/Creatinine Ratio 11.0 Glucose Level 108 mg/dL (70-110) Lactic Acid Level 1.0 mmol/L (0.5-1.9) Calcium Level 9.0 mg/dL (8.4-10.5) Total Bilirubin 0.9 mg/dL (0.2-1.0) Aspartate Amino Transf (AST/SGOT) 18 U/L (0-35) Alanine Aminotransferase (ALT/SGPT) 24 U/L (12-78) Alkaline Phosphatase 90 U/L (50-136) Total Creatine Kinase 27 U/L (26-192) Creatine Kinase MB 1.2 ng/mL (0.5-3.6) Troponin I < 0.02 ng/mL (0.00-0.05) C-Reactive Protein 7.78 mg/dL (0.00-5.00) Pro-B-Type Natriuretic Peptide 816 pg/mL (0-450) Total Protein 7.5 g/dL (6.4-8.2) Albumin 3.1 g/dL (3.4-5.0) Globulin 4.4 Albumin/Globulin Ratio 0.704 Procalcitonin < 0.05 ng/mL (0.05-0.5) SARS-CoV-2 Antigen (Rapid) NEGATIVE (NEGATIVE) Patient History: Asthma G8 MOTHER FH: alcoholism G8 MOTHER No known health problems G8 FATHER 19 CHILD 19 CHILD 19 CHILD 19 CHILD 19 CHILD RAHUL DIAZ MD Mar 26, 2021 15:20
[2021-03-26 15:55] VITALS: BP 116/65
[2021-03-26] MEDS: ROCEPHIN 2,000 MG in NS 100ML 100 ML IV SCH (23:44)
[2021-03-27] MEDS: VANCOMYCIN HCL 1 GM in NS 250ML 250 ML IV SCH (03:00)
[2021-03-27] MEDS: NORCO 10MG PO PRN ×3 (03:18→21:05)
[2021-03-27 04:00] VITALS: BP 137/78
--- NOTE | 2021-03-27 04:20 | NUR ---
0330 vanc held due to vanc trough of 22.6
[2021-03-27 07:31] VITALS: BP 132/80
[2021-03-27 07:57] LABS: CALCIUM 7.5 mg/dL (8.4-10.5)
[2021-03-27] MEDS: PROTONIX PO SCH (09:14)
[2021-03-27] MEDS: XARELTO PO SCH (09:14)
[2021-03-27 10:50] VITALS: BP 144/84
--- NOTE | 2021-03-27 13:20 | NUR ---
Duplicate orders put in by Joan Orona C MANAGER EQU[employer]MENT on 03/26/21 Evaluation performed on 03/24/21, with patient not picked up for Physical therapy intervention due to being at [facility]. According to nursing staff, patient is at the same functional status at this time and does not require physical therapy services. Yaneth Munguia DPT Signed: 03/27/21 at 1323 by YANETH MUNGUIA PT, Contract PT Addendum: 03/27/21 at 1323 by YANETH MUNGUIA PT, Contract PT Amended: Links added.
[2021-03-27] MEDS: VANCOMYCIN 1.5 GM/300 ML BAG 300 ML IV SCH (14:10)
--- NOTE | 2021-03-27 17:06 | PRM.PN ---
Subjective Subjective Date: Mar 27, 2021 Time: 11:25 Subjective Patient seen at bedside resting in bed. she reports her legs were stiffer when she came but has improved now. However leg still feels weak. Reports pain and stiffness after a 10hr journey via car from [place] to [place] with her daughter and son in law. Ambulance was called as soon as they arrived home to bring her to the hospital Patient History: Asthma G8 MOTHER FH: alcoholism G8 MOTHER No known health problems G8 FATHER 19 CHILD 19 CHILD 19 CHILD 19 CHILD 19 CHILD VTE VTE Risk Total Score: >5 VTE Risk Score VTE Risk: Score 0-1 = Low Risk (Aggressive mobilization; early ambulation; no VTE prophylaxis required) Score 2: Moderate Risk (Intermittent/Pneumatic Compression Device OR Lovenox/Heparin/Coumadin) Score 3-4: High Risk (Intermittent/Pneumatic Compression Device AND Lovenox/Heparin/Coumadin) Score > or =5: Highest Risk (Intermittent/Pneumatic Compression Device AND Lovenox/Heparin/Coumadin) Antico:Hep/LMWH/Coum/Xarelto: Yes Mechanical device ordered: No Review of Systems Constitutional: Weakness, Malaise; No: Fever, Chills, Sweats, Other Eyes: No: Pain, Vision change ENT: Nose pain Respiratory: No: Cough, Shortness of breath, Wheezing Cardiovascular: No: Chest Pain, Palpitations, Orthopnea, Lt Headedness Gastrointestinal: Nausea; No: Vomiting, Abdominal Pain, Diarrhea, Constipation Musculoskeletal: other (redness, swelling, warmth of left knee), leg pain (left knee pain and swelling) Skin: Bruising; No: Rash Neurological: Weakness; No: Numbness, Change in speech, Confusion Allergies: Coded Allergies: sulfamethoxazole (Verified Allergy, Intermediate, 03/24/21) trimethoprim (Verified Allergy, Intermediate, 03/24/21) Penicillins (Verified Allergy, Unknown, Rash, 03/23/21) fentanyl (Verified Allergy, Unknown, 03/23/21) hydromorphone (Verified Allergy, Unknown, 03/23/21) Scheduled Albuterol Sulfate (Proair Respiclick), 90 MCG IH Q4, (Reported) Amiodarone HCl (Amiodarone HCl), 2 TAB PO QD, (Reported) Budesonide/Formoterol Fumarate (Symbicort 160-4.5 Mcg Inhaler), 2 PUFF IH DAILY24, (Reported) Buspirone Hcl (Buspirone Hcl), 1 TAB PO TID, (Reported) Cefdinir (Cefdinir), 1 CAP PO BID, (Reported) Doxycycline Hyclate (Doxycycline Hyclate), 1 CAP PO BID, (Reported) Fluticasone Propionate (Fluticasone Propionate), 1 SPR NA DAILY, (Reported) Gabapentin (Neurontin), 1 CAP PO TID, (Reported) Montelukast Sodium (Montelukast Sodium), 1 TAB PO DAILY, (Reported) Pantoprazole Sodium (Pantoprazole Sodium), 20 MG PO DAILY24, (Reported) Rivaroxaban (Xarelto), 1 TAB PO DAILY24, (Reported) Vilazodone Hydrochloride (Viibryd), 1 TAB PO DAILY, (Reported) Scheduled PRN Diclofenac Sodium (Diclofenac Sodium), 100 GM TP Q6HR PRN for PAIN 1 - 3, (Reported) Objective Vitals and I/O Vital Sign - Last 24 Hours 03/27/21 03/27/21 03/27/21 03/27/21 07:31 09:39 10:50 11:37 Temp 97.6 98.2 Pulse 73 87 Resp 16 18 18 B/P (MAP) 132/80 (97) 144/84 (104) Pulse Ox 97 97 97 O2 Delivery Nasal Cannula O2 Flow Rate 2.00 03/27/21 11:37 Pulse 87 Resp 18 Pulse Ox 97 O2 Delivery Nasal Cannula O2 Flow Rate 2.00 FiO2 28 Intake and Output 03/27/21 07:00 Intake Total 942 ml Output Total 700 ml Balance 242 ml General: Alert, Oriented X3, Cooperative, No acute distress HEENT: Atraumatic, EOMI, Mucous membr. moist/pink Lungs: Clear to auscultation, Normal air movement, Other (no rales, no rhonchi, no wheezes) Heart: Regular rate, Normal S1, Normal S2, No murmurs Abdomen: Normal bowel sounds, Soft, No tenderness, No masses Extremities: No cyanosis, Normal pulses, Other (TTP left knee and 2cm p roximal/distal, 2+ pitting edema 2cm proximal/distal to left knee and including left knee, erythema and warmth to left knee, unable to flex left knee past 30 degrees, left knee held in extension, sutures in places, s/p left knee total arthroplasty) Skin: Other (dry scab on left knee surgical site ) Neuro: Normal speech, Sensation intact, Other (unable to bear weight on left leg, see extremity exam above,) Psych/Mental Status: Mood NL, Other (depressed affect) All Results(Lab/Rad) Laboratory Tests Test 03/23/21 21:27 03/23/21 22:05 03/24/21 05:25 White Blood Count 8.4 10^3/uL 9.4 10^3/uL Red Blood Count 3.85 10^6/uL 3.52 10^6/uL Hemoglobin 12.0 g/dL 11.0 g/dL Hematocrit 38.1 % 34.1 % Mean Corpuscular Volume 99.0 fL 96.9 fL Mean Corpuscular Hemoglobin 31.2 pg 31.3 pg Mean Corpuscular Hemoglobin Concent 31.5 g/dL 32.3 g/dL Red Cell Distribution Width 18.4 % 18.2 % Platelet Count 328 10^3/uL 297 10^3/uL Mean Platelet Volume 9.0 fL 9.2 fL Neutrophils (%) (Auto) 66.6 % 67.0 % Lymphocytes (%) (Auto) 15.8 % 13.7 % Monocytes (%) (Auto) 13.4 % 14.3 % Neutrophils # (Auto) 5.6 10^3/uL 6.3 10^3/uL Lymphocytes # (Auto) 1.32 10^3/uL1 1.29 10^3/uL1 Monocytes # (Auto) 1.1 10^3/uL 1.3 10^3/uL Absolute Immature Granulocyte (auto 0.07 10^3 u/L 0.03 10^3 u/L Absolute Eosinophils (auto) 0.3 10^3/uL 0.4 10^3/uL Immature Granulocytes % 0.80 % 0.30 % Eosinophils % 3.8 % 4.5 % Basophils % 0.4 % 0.5 % Basophils # 0.0 10^3/uL 0.1 10^3/uL Erythrocyte Sedimentation Rate 35 mm/hr Prothrombin Time 14.3 SEC Prothrombin Time INR (Non-Therap) 1.3 Activated Partial Thromboplast Time 33.4 SEC Sodium Level 133 mmol/L 139 mmol/L Potassium Level 3.6 mmol/L 3.9 mmol/L Chloride Level 100.0 mmol/L 105.0 mmol/L Carbon Dioxide Level 29.5 mmol/L 29.8 mmol/L Anion Gap 7.1 8.1 Blood Urea Nitrogen 10 mg/dL 10 mg/dL Creatinine 0.90 mg/dL 0.86 mg/dL Estimated GFR () 73.9 77.8 Est GFR (CKD-EPI)(Non-Afr Georgian) 61.0 64.3 BUN/Creatinine Ratio 11.0 11.0 Glucose Level 108 mg/dL 101 mg/dL Lactic Acid Level 1.0 mmol/L Calcium Level 9.0 mg/dL 8.9 mg/dL Total Bilirubin 0.9 mg/dL 0.6 mg/dL Aspartate Amino Transf (AST/SGOT) 18 U/L 17 U/L Alanine Aminotransferase (ALT/SGPT) 24 U/L 21 U/L Alkaline Phosphatase 90 U/L 71 U/L Total Creatine Kinase 27 U/L Creatine Kinase MB 1.2 ng/mL Troponin I < 0.02 ng/mL C-Reactive Protein 7.78 mg/dL Pro-B-Type Natriuretic Peptide 816 pg/mL Total Protein 7.5 g/dL 6.3 g/dL Albumin 3.1 g/dL 2.5 g/dL Globulin 4.4 3.8 Albumin/Globulin Ratio 0.704 0.657 Procalcitonin < 0.05 ng/mL SARS-CoV-2 Antigen (Rapid) NEGATIVE Current Medications Medications (Trade) Dose Ordered Sig/Mj Route PRN Reason Start Time Stop Time Status Last Admin Dose Admin Ceftriaxone Sodium 2000 mg/ Sodium Chloride 100 ml @ 100 mls/hr OT IV 03/23/21 23:00 04/22/21 22:59 03/23/21 23:38 Vancomycin HCl 2 gm/Sodium Chloride 250 ml @ 175 mls/hr OT ONCE IV 03/23/21 23:00 03/24/21 02:38 DC Sodium Chloride 100 ml @ ud STK-MED ONCE IV 03/23/21 23:30 03/23/21 23:30 DC Ceftriaxone Sodium (Rocephin) 2,000 mg STK-MED ONCE .ROUTE 03/23/21 23:30 03/23/21 23:30 DC Acetaminophen (Tylenol) 325 mg Q4H PRN PO PAIN 1 - 3 03/23/21 23:30 04/22/21 23:29 Pantoprazole Sodium (Protonix) 40 mg DAILY PO 03/24/21 09:00 04/23/21 08:59 03/24/21 08:18 Morphine Sulfate (Morphine Sulfate) 2 mg Q4H PRN IV PAIN 7 - 10 03/23/21 23:45 04/22/21 23:44 Ondansetron HCl (Zofran) 4 mg Q4H PRN IV NAUSEA / VOMITING 03/23/21 23:30 04/22/21 23:29 Sodium Chloride 100 ml @ ud STK-MED ONCE IV 03/23/21 23:32 03/23/21 23:33 DC Vancomycin HCl 1 gm/Sodium Chloride 250 ml @ 175 mls/hr Q12HR ONCE IV 03/24/21 09:00 03/24/21 09:28 DC Ceftriaxone Sodium 2000 mg/ Sodium Chloride 100 ml @ 100 mls/hr Q24HRS IV 03/24/21 23:00 04/23/21 22:59 Enoxaparin Sodium (Lovenox) 40 mg Q24HRS SQ 03/24/21 09:00 04/23/21 08:59 03/24/21 08:18 Vancomycin HCl 2 ml @ ud STK-MED ONCE .ROUTE 03/24/21 01:48 03/24/21 01:49 DC Sodium Chloride 500 ml @ ud STK-MED ONCE IV 03/24/21 01:50 03/24/21 01:50 DC Vancomycin HCl 2 ml @ ud STK-MED ONCE .ROUTE 03/24/21 02:14 03/24/21 02:15 DC Sodium Chloride 500 ml @ ud STK-MED ONCE IV 03/24/21 02:15 03/24/21 02:15 DC Vancomycin HCl 2 gm/Sodium Chloride 500 ml @ 175 mls/hr OT ONCE IV 03/24/21 03:00 03/24/21 09:28 DC Vancomycin HCl 2 gm/Sodium Chloride 500 ml @ 175 mls/hr OT ONCE IV 03/24/21 03:00 03/24/21 08:12 DC 03/24/21 02:48 Vancomycin HCl 1 gm/Sodium Chloride 250 ml @ 175 mls/hr Q12H IV 03/24/21 15:00 04/23/21 14:59 Course Sepsis Screening Results: Posi: POSITIVE Sepsis Qualifier/Stage: SEPSIS RISK DATE SEEN BY PHYSICIAN: Mar 27, 2021 TIME SEEN BY PROVIDER: 11:25 Duration or Total Time Spent w: 15 Vitals & review Data Vital Sign - Last 24 Hours 03/24/21 03/24/21 03/24/21 03/24/21 17:08 19:26 20:00 20:23 Temp 97.9 97.7 Pulse 82 86 82 Resp 16 16 16 B/P (MAP) 124/74 (91) 136/78 (97) Pulse Ox 90 92 90 O2 Delivery Nasal Cannula Nasal Cannula O2 Flow Rate 2.00 2.00 FiO2 28 03/24/21 03/25/21 03/25/21 03/25/21 23:55 04:25 07:30 08:44 Temp 98.1 97.5 98.4 Pulse 79 76 63 82 Resp 16 16 13 16 B/P (MAP) 111/65 (80) 124/70 (88) 135/81 (99) Pulse Ox 95 96 90 90 O2 Delivery Nasal Cannula O2 Flow Rate 2.00 FiO2 28 03/25/21 03/25/21 11:30 12:21 Temp 97.9 Pulse 78 Resp 15 B/P (MAP) 147/88 (107) Pulse Ox 94 O2 Delivery Nasal Cannula O2 Flow Rate 2.00 Intake and Output 03/25/21 07:00 Intake Total 630 ml Output Total 250 ml Balance 380 ml Laboratory Tests Test 03/23/21 21:27 03/23/21 22:05 03/24/21 05:25 03/25/21 04:51 White Blood Count 8.4 10^3/uL 9.4 10^3/uL 7.3 10^3/uL Red Blood Count 3.85 10^6/uL 3.52 10^6/uL 3.13 10^6/uL Hemoglobin 12.0 g/dL 11.0 g/dL 9.8 g/dL Hematocrit 38.1 % 34.1 % 30.7 % Mean Corpuscular Volume 99.0 fL 96.9 fL 98.1 fL Mean Corpuscular Hemoglobin 31.2 pg 31.3 pg 31.3 pg Mean Corpuscular Hemoglobin Concent 31.5 g/dL 32.3 g/dL 31.9 g/dL Red Cell Distribution Width 18.4 % 18.2 % 18.2 % Platelet Count 328 10^3/uL 297 10^3/uL 260 10^3/uL Mean Platelet Volume 9.0 fL 9.2 fL 10.0 fL Neutrophils (%) (Auto) 66.6 % 67.0 % 59.1 % Lymphocytes (%) (Auto) 15.8 % 13.7 % 17.1 % Monocytes (%) (Auto) 13.4 % 14.3 % 17.0 % Neutrophils # (Auto) 5.6 10^3/uL 6.3 10^3/uL 4.3 10^3/uL Lymphocytes # (Auto) 1.32 10^3/uL1 1.29 10^3/uL1 1.24 10^3/uL1 Monocytes # (Auto) 1.1 10^3/uL 1.3 10^3/uL 1.2 10^3/uL Absolute Immature Granulocyte (auto 0.07 10^3 u/L 0.03 10^3 u/L 0.04 10^3 u/L Absolute Eosinophils (auto) 0.3 10^3/uL 0.4 10^3/uL 0.4 10^3/uL Immature Granulocytes % 0.80 % 0.30 % 0.60 % Eosinophils % 3.8 % 4.5 % 6.1 % Basophils % 0.4 % 0.5 % 0.7 % Basophils # 0.0 10^3/uL 0.1 10^3/uL 0.1 10^3/uL Erythrocyte Sedimentation Rate 35 mm/hr Prothrombin Time 14.3 SEC Prothrombin Time INR (Non-Therap) 1.3 Activated Partial Thromboplast Time 33.4 SEC Sodium Level 133 mmol/L 139 mmol/L 139 mmol/L Potassium Level 3.6 mmol/L 3.9 mmol/L 3.5 mmol/L Chloride Level 100.0 mmol/L 105.0 mmol/L 107.0 mmol/L Carbon Dioxide Level 29.5 mmol/L 29.8 mmol/L 27.3 mmol/L Anion Gap 7.1 8.1 8.2 Blood Urea Nitrogen 10 mg/dL 10 mg/dL 9 mg/dL Creatinine 0.90 mg/dL 0.86 mg/dL 0.83 mg/dL Estimated GFR () 73.9 77.8 81.1 Est GFR (CKD-EPI)(Non-Afr Georgian) 61.0 64.3 67.0 BUN/Creatinine Ratio 11.0 11.0 10.0 Glucose Level 108 mg/dL 101 mg/dL 85 mg/dL Lactic Acid Level 1.0 mmol/L Calcium Level 9.0 mg/dL 8.9 mg/dL 8.2 mg/dL Total Bilirubin 0.9 mg/dL 0.6 mg/dL 0.3 mg/dL Aspartate Amino Transf (AST/SGOT) 18 U/L 17 U/L 20 U/L Alanine Aminotransferase (ALT/SGPT) 24 U/L 21 U/L 18 U/L Alkaline Phosphatase 90 U/L 71 U/L 59 U/L Total Creatine Kinase 27 U/L Creatine Kinase MB 1.2 ng/mL Troponin I < 0.02 ng/mL C-Reactive Protein 7.78 mg/dL Pro-B-Type Natriuretic Peptide 816 pg/mL Total Protein 7.5 g/dL 6.3 g/dL 5.7 g/dL Albumin 3.1 g/dL 2.5 g/dL 2.1 g/dL Globulin 4.4 3.8 3.6 Albumin/Globulin Ratio 0.704 0.657 0.583 Procalcitonin < 0.05 ng/mL SARS-CoV-2 Antigen (Rapid) NEGATIVE Current Medications Medications (Trade) Dose Ordered Sig/Mj PRN Reason Start Time Stop Time Status Last Admin Acetaminophen (Tylenol) 1,000 mg Q6HR PRN PAIN 1 - 3 03/25/21 11:30 04/22/21 23:29 Acetaminophen/ Hydrocodone Bitart ([place] 10mg) 1 each Q4H PRN PAIN 7 - 10 03/24/21 16:30 04/23/21 16:29 03/25/21 11:05 Ceftriaxone Sodium 2000 mg/ Sodium Chloride 100 ml @ 100 mls/hr Q24HRS 03/24/21 23:00 04/23/21 22:59 03/24/21 23:01 Enoxaparin Sodium (Lovenox) 40 mg Q24HRS 03/24/21 09:00 04/23/21 08:59 03/25/21 08:16 Ondansetron HCl (Zofran) 4 mg Q4H PRN NAUSEA / VOMITING 03/23/21 23:30 04/22/21 23:29 Pantoprazole Sodium (Protonix) 40 mg DAILY 03/24/21 09:00 04/23/21 08:59 03/25/21 08:16 Vancomycin HCl 1 gm/Sodium Chloride 250 ml @ 175 mls/hr Q12H 03/24/21 15:00 04/23/21 14:59 03/25/21 04:00 LEVEL 1 SEPSIS INFECTION CRITE: ABX Therapy LEVEL 2-SIRS (LIST ALL THAT AP: None/Not assessed Cardiovascular Evidence: Not Assessed or None Hematologic Evidence: None/Not assessed Hepatic Evidence: None/Not assessed Metabolic Evidence: None/Not assessed Neurological Evidence: None/Not assessed Respiratory Evidence: Need for O2 to keep>90% Renal Evidence: None/Not assessed O2 Sat by Pulse Oximetry: 97 Oxygen Flow Rate: 2.00 Assessment/Plan Assessment/Plan Assessment/Plan ASSESSMENT/ PLAN (1) Septic arthritis Status: Chronic Assessment & Plan: Acute exacerbation of chronic left knee spetic arthritis. S/p left knee total arthroplasty 7 mn ago, just released from rehab in [place], [place] yesterday and brought down to [place] by her daughter. ESR and CRP elevated, WBC normal. Vitals stable. XR left knee positive for subQ edema and small joint effusion, s/p total arthroplasty. -vancomycin and Rocephin -consult ortho and ID COMPLICATION TYPE: W/ ACUTE EXACERBATION ICD Code: M00.9 - Pyogenic arthritis, unspecified SNOMED: 676266866 (2) Atrial fibrillation Status: Chronic Assessment & Plan: EKG: normal sinus rhythm -continue home meds when known.(list provided 03/26/21) ICD Code: I48.91 - Unspecified atrial fibrillation-resume home med eliquix and amiodarone SNOMED: 88053012 (3) CAD (coronary artery disease) Status: Chronic Assessment & Plan: No hx of stents or CABG. s/p [place] x 4. -continue home meds ICD Code: I25.10 - Atherosclerotic heart disease of [place] coronary artery without angina pectoris SNOMED: 93267981 (4) COPD (chronic obstructive pulmonary disease)- resume home meds fluticasone, montelukast, Status: Chronic Assessment & Plan: Doing well on 2L NC, denies SOB, cough, wheezing, Does not use supplemental O2 at baseline. -continue home meds when known ICD Code: J44.9 - Chronic obstructive pulmonary disease, unspecified SNOMED: 72533739 (5) Pulmonary fibrosis Status: Chronic Assessment & Plan: See COPD plan above. ICD Code: J84.10 - Pulmonary fibrosis, unspecified SNOMED: 10603740 (6) Morbid obesity with BMI of 40.0-44.9, adult Status: Chronic Assessment & Plan: BMI 43.9. Likely complicating rehab and healing of left knee. ICD Code: E66.01 - Morbid (severe) obesity due to excess calories; Z68.41 - Body mass index [BMI] 40.0-44.9, adult SNOMED: 758796590, 596023374, 45790695115260 (7) History of [place] (myocardial infarction) ICD Code: I25.2 - Old myocardial infarction- resume home meds SNOMED: 435565985 (8) History of stroke ICD Code: Z86.73 - Personal history of transient ischemic attack (TIA), and cerebral infarction without residual deficits - monitor - Leave Manager consult for placement. possible neglect DVT/GI prophylaxis- Eliquix/ Protonix Disposition: Discharge once case management finds placement and clinically stable Date Time Temp Pulse Resp B/P (MAP) Pulse Ox O2 Delivery O2 Flow Rate FiO2 03/23/21 20:58 98.3 90 16 93 03/23/21 20:58 148/77 (100) Room Air 03/23/21 21:05 2.00 03/24/21 00:56 28 Date Time Temp Pulse Resp B/P (MAP) Pulse Ox O2 Delivery O2 Flow Rate FiO2 03/24/21 00:57 19 99 03/24/21 00:56 115 Nasal Cannula 2.00 28 03/23/21 23:38 98.5 132/78 (96) Test 03/23/21 21:27 Antibody Screen NEGATIVE Blood Type O POSITIVE Test 03/23/21 21:27 03/23/21 22:05 White Blood Count 8.4 10^3/uL (4.5-11.0) Red Blood Count 3.85 10^6/uL (4.00-5.20) Hemoglobin 12.0 g/dL (12.0-15.0) Hematocrit 38.1 % (36.0-46.0) Mean Corpuscular Volume 99.0 fL (78-100) Mean Corpuscular Hemoglobin 31.2 pg (26-34) Mean Corpuscular Hemoglobin Concent 31.5 g/dL (33-36.5) Red Cell Distribution Width 18.4 % (11.5-14.5) Platelet Count 328 10^3/uL (150-400) Mean Platelet Volume 9.0 fL (7.8-11.0) Neutrophils (%) (Auto) 66.6 % (41.0-85.0) Lymphocytes (%) (Auto) 15.8 % (24.0-44.0) Monocytes (%) (Auto) 13.4 % (5.0-12.0) Neutrophils # (Auto) 5.6 10^3/uL (1.8-7.7) Lymphocytes # (Auto) 1.32 10^3/uL1 (1.0-4.8) Monocytes # (Auto) 1.1 10^3/uL (0.3-0.8) Absolute Immature Granulocyte (auto 0.07 10^3 u/L (0-2) Absolute Eosinophils (auto) 0.3 10^3/uL (0.0-0.2) Immature Granulocytes % 0.80 % (0.00-0.50) Eosinophils % 3.8 % (0.0-5.0) Basophils % 0.4 % (0.0-0.2) Basophils # 0.0 10^3/uL (0.0-0.1) Erythrocyte Sedimentation Rate 35 mm/hr (0-20) Prothrombin Time 14.3 SEC (9.6-12.0) Prothrombin Time INR (Non-Therap) 1.3 Activated Partial Thromboplast Time 33.4 SEC (24.67-30.72) Sodium Level 133 mmol/L (132-145) Potassium Level 3.6 mmol/L (3.6-5.2) Chloride Level 100.0 mmol/L (96-109) Carbon Dioxide Level 29.5 mmol/L (20.0-32) Anion Gap 7.1 Blood Urea Nitrogen 10 mg/dL (7-18) Creatinine 0.90 mg/dL (0.59-1.40) Estimated GFR () 73.9 (>/=60) Est GFR (CKD-EPI)(Non-Afr Georgian) 61.0 (>/=60) BUN/Creatinine Ratio 11.0 Glucose Level 108 mg/dL (70-110) Lactic Acid Level 1.0 mmol/L (0.5-1.9) Calcium Level 9.0 mg/dL (8.4-10.5) Total Bilirubin 0.9 mg/dL (0.2-1.0) Aspartate Amino Transf (AST/SGOT) 18 U/L (0-35) Alanine Aminotransferase (ALT/SGPT) 24 U/L (12-78) Alkaline Phosphatase 90 U/L (50-136) Total Creatine Kinase 27 U/L (26-192) Creatine Kinase MB 1.2 ng/mL (0.5-3.6) Troponin I < 0.02 ng/mL (0.00-0.05) C-Reactive Protein 7.78 mg/dL (0.00-5.00) Pro-B-Type Natriuretic Peptide 816 pg/mL (0-450) Total Protein 7.5 g/dL (6.4-8.2) Albumin 3.1 g/dL (3.4-5.0) Globulin 4.4 Albumin/Globulin Ratio 0.704 Procalcitonin < 0.05 ng/mL (0.05-0.5) SARS-CoV-2 Antigen (Rapid) NEGATIVE (NEGATIVE) KIT SOMMERS NP Mar 27, 2021 17:06
[2021-03-27 17:20] VITALS: BP 158/97
[2021-03-27 20:44] VITALS: BP 150/87
[2021-03-27] MEDS: ROCEPHIN 2,000 MG in NS 100ML 100 ML IV SCH (22:31)
[2021-03-28 00:11] VITALS: BP 142/79
[2021-03-28] MEDS: NORCO 10MG PO PRN ×4 (02:40→21:13)
[2021-03-28 03:46] VITALS: BP 142/79
[2021-03-28 06:22] LABS: CALCIUM 8.5 mg/dL (8.4-10.5); CARBON DIOXIDE 26.5 mmol/L (20.0-32)
[2021-03-28 08:01] VITALS: BP 157/91
[2021-03-28] MEDS: PROTONIX PO SCH (09:11)
[2021-03-28] MEDS: XARELTO PO SCH (09:13)
--- NOTE | 2021-03-28 09:13 | NUR ---
PAIN NORCO 10MG PO ADMINISTERED AT THIS TIME FOR SUBJECTIVE PAIN LEVEL OF 8/10 IN LOWER BACK. WILL CONTINUE WITH PLAN OF CARE.
[2021-03-28 12:55] VITALS: BP 144/93
[2021-03-28] MEDS ORDERED: NS 250ML 250 ML ONE (14:39)
[2021-03-28] MEDS: VANCOMYCIN 1.5 GM/300 ML BAG 300 ML IV SCH (14:40)
--- NOTE | 2021-03-28 16:09 | NUR ---
DISCHARGE PLANNING: CM/SS VISITED WITH PT'S DAUGHTER ALEJANDRA VALENTINO REGARDING DISCHARGE PLAN AND NEED. PT RECENTLY MOVED HER WITH HER AND THEY NEED ASSISTANCE WITH PT IN THE HOME AND INCREASING MOBILITY. PT'S DAUGHTER AT THIS TIME WOULD LIKE PT TO RETURN HOME WITH HER AND HOME HEALTH SERVICES IF PT IS AGREEABLE. PT'S DAUGHTER HAD NO PREFERENCE AND STATED THEY WERE FINE WITH WHATEVER AGENCY CM/SS CHOSE. CM/SS LET PT'S DAUGHTER KNOW [facility] WAS NEXT ON THE REFERRAL LIST AND THEY WOULD SEND THE REFERRAL TO THEM. GOAL UPON DISCHARGE IS TO RETURN HOME WITH DAUGHTER AND [facility]. NO FURTHER CM/SS NEEDS NOTED AT THIS TIME. CM/SS TO CONTINUE TO FOLLOW AND MONITOR DISCHARGE PLAN AND NEEDS.
[2021-03-28 17:31] VITALS: BP 149/93
--- NOTE | 2021-03-28 18:16 | PRM.PN ---
Subjective Subjective Date: Mar 28, 2021 Time: 11:25 Subjective Patient seen at bedside resting in bed. she reports her legs were stiffer when she came but has improved now. However leg still feels weak. Reports pain and stiffness after a 10hr journey via car from [place] to [place] with her daughter and son in law. Ambulance was called as soon as they arrived home to bring her to the hospital Patient History: Asthma G8 MOTHER FH: alcoholism G8 MOTHER No known health problems G8 FATHER 19 CHILD 19 CHILD 19 CHILD 19 CHILD 19 CHILD VTE VTE Risk Total Score: >5 VTE Risk Score VTE Risk: Score 0-1 = Low Risk (Aggressive mobilization; early ambulation; no VTE prophylaxis required) Score 2: Moderate Risk (Intermittent/Pneumatic Compression Device OR Lovenox/Heparin/Coumadin) Score 3-4: High Risk (Intermittent/Pneumatic Compression Device AND Lovenox/Heparin/Coumadin) Score > or =5: Highest Risk (Intermittent/Pneumatic Compression Device AND Lovenox/Heparin/Coumadin) Antico:Hep/LMWH/Coum/Xarelto: Yes Mechanical device ordered: No Review of Systems Constitutional: Weakness, Malaise; No: Fever, Chills, Sweats, Other Eyes: No: Pain, Vision change ENT: Nose pain Respiratory: No: Cough, Shortness of breath, Wheezing Cardiovascular: No: Chest Pain, Palpitations, Orthopnea, Lt Headedness Gastrointestinal: Nausea; No: Vomiting, Abdominal Pain, Diarrhea, Constipation Musculoskeletal: other (redness, swelling, warmth of left knee), leg pain (left knee pain and swelling) Skin: Bruising; No: Rash Neurological: Weakness; No: Numbness, Change in speech, Confusion Allergies: Coded Allergies: sulfamethoxazole (Verified Allergy, Intermediate, 03/24/21) trimethoprim (Verified Allergy, Intermediate, 03/24/21) Penicillins (Verified Allergy, Unknown, Rash, 03/23/21) fentanyl (Verified Allergy, Unknown, 03/23/21) hydromorphone (Verified Allergy, Unknown, 03/23/21) Scheduled Albuterol Sulfate (Proair Respiclick), 90 MCG IH Q4, (Reported) Amiodarone HCl (Amiodarone HCl), 2 TAB PO QD, (Reported) Budesonide/Formoterol Fumarate (Symbicort 160-4.5 Mcg Inhaler), 2 PUFF IH DAILY24, (Reported) Buspirone Hcl (Buspirone Hcl), 1 TAB PO TID, (Reported) Cefdinir (Cefdinir), 1 CAP PO BID, (Reported) Doxycycline Hyclate (Doxycycline Hyclate), 1 CAP PO BID, (Reported) Fluticasone Propionate (Fluticasone Propionate), 1 SPR NA DAILY, (Reported) Gabapentin (Neurontin), 1 CAP PO TID, (Reported) Montelukast Sodium (Montelukast Sodium), 1 TAB PO DAILY, (Reported) Pantoprazole Sodium (Pantoprazole Sodium), 20 MG PO DAILY24, (Reported) Rivaroxaban (Xarelto), 1 TAB PO DAILY24, (Reported) Vilazodone Hydrochloride (Viibryd), 1 TAB PO DAILY, (Reported) Scheduled PRN Diclofenac Sodium (Diclofenac Sodium), 100 GM TP Q6HR PRN for PAIN 1 - 3, (Reported) Objective Vitals and I/O Vital Sign - Last 24 Hours 03/28/21 03/28/21 03/28/21 03/28/21 08:01 11:19 12:55 13:29 Temp 98.0 97.9 Pulse 93 93 79 Resp 19 19 18 B/P (MAP) 157/91 (113) 144/93 (110) Pulse Ox 91 91 96 O2 Delivery Nasal Cannula Nasal Cannula O2 Flow Rate 2.00 2.00 03/28/21 17:31 Temp 98.2 Pulse 78 Resp 19 B/P (MAP) 149/93 (111) Pulse Ox 92 Intake and Output 03/28/21 06:59 Intake Total 412 ml Balance 412 ml General: Alert, Oriented X3, Cooperative, No acute distress HEENT: Atraumatic, EOMI, Mucous membr. moist/pink Lungs: Clear to auscultation, Normal air movement, Other (no rales, no rhonchi, no wheezes) Heart: Regular rate, Normal S1, Normal S2, No murmurs Abdomen: Normal bowel sounds, Soft, No tenderness, No masses Extremities: No cyanosis, Normal pulses, Other (TTP left knee and 2cm proximal/distal, 2+ pitting edema 2cm proximal/distal to left knee and including left knee, erythema and warmth to left knee, unable to flex left knee past 30 degrees, left knee held in extension, sutures in places, s/p left knee total arthroplasty) Skin: Other (dry scab on left knee surgical site ) Neuro: Normal speech, Sensation intact, Other (unable to bear weight on left leg, see extremity exam above,) Psych/Mental Status: Mood NL, Other (depressed affect) All Results(Lab/Rad) Laboratory Tests Test 03/23/21 21:27 03/23/21 22:05 03/24/21 05:25 White Blood Count 8.4 10^3/uL 9.4 10^3/uL Red Blood Count 3.85 10^6/uL 3.52 10^6/uL Hemoglobin 12.0 g/dL 11.0 g/dL Hematocrit 38.1 % 34.1 % Mean Corpuscular Volume 99.0 fL 96.9 fL Mean Corpuscular Hemoglobin 31.2 pg 31.3 pg Mean Corpuscular Hemoglobin Concent 31.5 g/dL 32.3 g/dL Red Cell Distribution Width 18.4 % 18.2 % Platelet Count 328 10^3/uL 297 10^3/uL Mean Platelet Volume 9.0 fL 9.2 fL Neutrophils (%) (Auto) 66.6 % 67.0 % Lymphocytes (%) (Auto) 15.8 % 13.7 % Monocytes (%) (Auto) 13.4 % 14.3 % Neutrophils # (Auto) 5.6 10^3/uL 6.3 10^3/uL Lymphocytes # (Auto) 1.32 10^3/uL1 1.29 10^3/uL1 Monocytes # (Auto) 1.1 10^3/uL 1.3 10^3/uL Absolute Immature Granulocyte (auto 0.07 10^3 u/L 0.03 10^3 u/L Absolute Eosinophils (auto) 0.3 10^3/uL 0.4 10^3/uL Immature Granulocytes % 0.80 % 0.30 % Eosinophils % 3.8 % 4.5 % Basophils % 0.4 % 0.5 % Basophils # 0.0 10^3/uL 0.1 10^3/uL Erythrocyte Sedimentation Rate 35 mm/hr Prothrombin Time 14.3 SEC Prothrombin Time INR (Non-Therap) 1.3 Activated Partial Thromboplast Time 33.4 SEC Sodium Level 133 mmol/L 139 mmol/L Potassium Level 3.6 mmol/L 3.9 mmol/L Chloride Level 100.0 mmol/L 105.0 mmol/L Carbon Dioxide Level 29.5 mmol/L 29.8 mmol/L Anion Gap 7.1 8.1 Blood Urea Nitrogen 10 mg/dL 10 mg/dL Creatinine 0.90 mg/dL 0.86 mg/dL Estimated GFR () 73.9 77.8 Est GFR (CKD-EPI)(Non-Afr Samoan) 61.0 64.3 BUN/Creatinine Ratio 11.0 11.0 Glucose Level 108 mg/dL 101 mg/dL Lactic Acid Level 1.0 mmol/L Calcium Level 9.0 mg/dL 8.9 mg/dL Total Bilirubin 0.9 mg/dL 0.6 mg/dL Aspartate Amino Transf (AST/SGOT) 18 U/L 17 U/L Alanine Aminotransferase (ALT/SGPT) 24 U/L 21 U/L Alkaline Phosphatase 90 U/L 71 U/L Total Creatine Kinase 27 U/L Creatine Kinase MB 1.2 ng/mL Troponin I < 0.02 ng/mL C-Reactive Protein 7.78 mg/dL Pro-B-Type Natriuretic Peptide 816 pg/mL Total Protein 7.5 g/dL 6.3 g/dL Albumin 3.1 g/dL 2.5 g/dL Globulin 4.4 3.8 Albumin/Globulin Ratio 0.704 0.657 Procalcitonin < 0.05 ng/mL SARS-CoV-2 Antigen (Rapid) NEGATIVE Current Medications Medications (Trade) Dose Ordered Sig/Mj Route PRN Reason Start Time Stop Time Status Last Admin Dose Admin Ceftriaxone Sodium 2000 mg/ Sodium Chloride 100 ml @ 100 mls/hr OT IV 03/23/21 23:00 04/22/21 22:59 03/23/21 23:38 Vancomycin HCl 2 gm/Sodium Chloride 250 ml @ 175 mls/hr OT ONCE IV 03/23/21 23:00 03/24/21 02:38 DC Sodium Chloride 100 ml @ ud STK-MED ONCE IV 03/23/21 23:30 03/23/21 23:30 DC Ceftriaxone Sodium (Rocephin) 2,000 mg STK-MED ONCE .ROUTE 03/23/21 23:30 03/23/21 23:30 DC Acetaminophen (Tylenol) 325 mg Q4H PRN PO PAIN 1 - 3 03/23/21 23:30 04/22/21 23:29 Pantoprazole Sodium (Protonix) 40 mg DAILY PO 03/24/21 09:00 04/23/21 08:59 03/24/21 08:18 Morphine Sulfate (Morphine Sulfate) 2 mg Q4H PRN IV PAIN 7 - 10 03/23/21 23:45 04/22/21 23:44 Ondansetron HCl (Zofran) 4 mg Q4H PRN IV NAUSEA / VOMITING 03/23/21 23:30 04/22/21 23:29 Sodium Chloride 100 ml @ ud STK-MED ONCE IV 03/23/21 23:32 03/23/21 23:33 DC Vancomycin HCl 1 gm/Sodium Chloride 250 ml @ 175 mls/hr Q12HR ONCE IV 03/24/21 09:00 03/24/21 09:28 DC Ceftriaxone Sodium 2000 mg/ Sodium Chloride 100 ml @ 100 mls/hr Q24HRS IV 03/24/21 23:00 04/23/21 22:59 Enoxaparin Sodium (Lovenox) 40 mg Q24HRS SQ 03/24/21 09:00 04/23/21 08:59 03/24/21 08:18 Vancomycin HCl 2 ml @ STK-MED ONCE .ROUTE 03/24/21 01:48 03/24/21 01:49 DC Sodium Chloride 500 ml @ ud STK-MED ONCE IV 03/24/21 01:50 03/24/21 01:50 DC Vancomycin HCl 2 ml @ ud STK-MED ONCE .ROUTE 03/24/21 02:14 03/24/21 02:15 DC Sodium Chloride 500 ml @ ud STK-MED ONCE IV 03/24/21 02:15 03/24/21 02:15 DC Vancomycin HCl 2 gm/Sodium Chloride 500 ml @ 175 mls/hr OT ONCE IV 03/24/21 03:00 03/24/21 09:28 DC Vancomycin HCl 2 gm/Sodium Chloride 500 ml @ 175 mls/hr OT ONCE IV 03/24/21 03:00 03/24/21 08:12 DC 03/24/21 02:48 Vancomycin HCl 1 gm/Sodium Chloride 250 ml @ 175 mls/hr Q12H IV 03/24/21 15:00 04/23/21 14:59 Course Sepsis Screening Results: Posi: POSITIVE Sepsis Qualifier/Stage: SEPSIS RISK DATE SEEN BY PHYSICIAN: Mar 27, 2021 TIME SEEN BY PROVIDER: 11:25 Duration or Total Time Spent w: 15 Vitals & review Data Vital Sign - Last 24 Hours 03/24/21 03/24/21 03/24/21 03/24/21 17:08 19:26 20:00 20:23 Temp 97.9 97.7 Pulse 82 86 82 Resp 16 16 16 B/P (MAP) 124/74 (91) 136/78 (97) Pulse Ox 90 92 90 O2 Delivery Nasal Cannula Nasal Cannula O2 Flow Rate 2.00 2.00 FiO2 28 03/24/21 03/25/21 03/25/21 03/25/21 23:55 04:25 07:30 08:44 Temp 98.1 97.5 98.4 Pulse 79 76 63 82 Resp 16 16 13 16 B/P (MAP) 111/65 (80) 124/70 (88) 135/81 (99) Pulse Ox 95 96 90 90 O2 Delivery Nasal Cannula O2 Flow Rate 2.00 FiO2 28 03/25/21 03/25/21 11:30 12:21 Temp 97.9 Pulse 78 Resp 15 B/P (MAP) 147/88 (107) Pulse Ox 94 O2 Delivery Nasal Cannula O2 Flow Rate 2.00 Intake and Output 03/25/21 07:00 Intake Total 630 ml Output Total 250 ml Balance 380 ml Laboratory Tests Test 03/23/21 21:27 03/23/21 22:05 03/24/21 05:25 03/25/21 04:51 White Blood Count 8.4 10^3/uL 9.4 10^3/uL 7.3 10^3/uL Red Blood Count 3.85 10^6/uL 3.52 10^6/uL 3.13 10^6/uL Hemoglobin 12.0 g/dL 11.0 g/dL 9.8 g/dL Hematocrit 38.1 % 34.1 % 30.7 % Mean Corpuscular Volume 99.0 fL 96.9 fL 98.1 fL Mean Corpuscular Hemoglobin 31.2 pg 31.3 pg 31.3 pg Mean Corpuscular Hemoglobin Concent 31.5 g/dL 32.3 g/dL 31.9 g/dL Red Cell Distribution Width 18.4 % 18.2 % 18.2 % Platelet Count 328 10^3/uL 297 10^3/uL 260 10^3/uL Mean Platelet Volume 9.0 fL 9.2 fL 10.0 fL Neutrophils (%) (Auto) 66.6 % 67.0 % 59.1 % Lymphocytes (%) (Auto) 15.8 % 13.7 % 17.1 % Monocytes (%) (Auto) 13.4 % 14.3 % 17.0 % Neutrophils # (Auto) 5.6 10^3/uL 6.3 10^3/uL 4.3 10^3/uL Lymphocytes # (Auto) 1.32 10^3/uL1 1.29 10^3/uL1 1.24 10^3/uL1 Monocytes # (Auto) 1.1 10^3/uL 1.3 10^3/uL 1.2 10^3/uL Absolute Immature Granulocyte (auto 0.07 10^3 u/L 0.03 10^3 u/L 0.04 10^3 u/L Absolute Eosinophils (auto) 0.3 10^3/uL 0.4 10^3/uL 0.4 10^3/uL Immature Granulocytes % 0.80 % 0.30 % 0.60 % Eosinophils % 3.8 % 4.5 % 6.1 % Basophils % 0.4 % 0.5 % 0.7 % Basophils # 0.0 10^3/uL 0.1 10^3/uL 0.1 10^3/uL Erythrocyte Sedimentation Rate 35 mm/hr Prothrombin Time 14.3 SEC Prothrombin Time INR (Non-Therap) 1.3 Activated Partial Thromboplast Time 33.4 SEC Sodium Level 133 mmol/L 139 mmol/L 139 mmol/L Potassium Level 3.6 mmol/L 3.9 mmol/L 3.5 mmol/L Chloride Level 100.0 mmol/L 105.0 mmol/L 107.0 mmol/L Carbon Dioxide Level 29.5 mmol/L 29.8 mmol/L 27.3 mmol/L Anion Gap 7.1 8.1 8.2 Blood Urea Nitrogen 10 mg/dL 10 mg/dL 9 mg/dL Creatinine 0.90 mg/dL 0.86 mg/dL 0.83 mg/dL Estimated GFR () 73.9 77.8 81.1 Est GFR (CKD-EPI)(Non-Afr Samoan) 61.0 64.3 67.0 BUN/Creatinine Ratio 11.0 11.0 10.0 Glucose Level 108 mg/dL 101 mg/dL 85 mg/dL Lactic Acid Level 1.0 mmol/L Calcium Level 9.0 mg/dL 8.9 mg/dL 8.2 mg/dL Total Bilirubin 0.9 mg/dL 0.6 mg/dL 0.3 mg/dL Aspartate Amino Transf (AST/SGOT) 18 U/L 17 U/L 20 U/L Alanine Aminotransferase (ALT/SGPT) 24 U/L 21 U/L 18 U/L Alkaline Phosphatase 90 U/L 71 U/L 59 U/L Total Creatine Kinase 27 U/L Creatine Kinase MB 1.2 ng/mL Troponin I < 0.02 ng/mL C-Reactive Protein 7.78 mg/dL Pro-B-Type Natriuretic Peptide 816 pg/mL Total Protein 7.5 g/dL 6.3 g/dL 5.7 g/dL Albumin 3.1 g/dL 2.5 g/dL 2.1 g/dL Globulin 4.4 3.8 3.6 Albumin/Globulin Ratio 0.704 0.657 0.583 Procalcitonin < 0.05 ng/mL SARS-CoV-2 Antigen (Rapid) NEGATIVE Current Medications Medications (Trade) Dose Ordered Sig/Mj PRN Reason Start Time Stop Time Status Last Admin Acetaminophen (Tylenol) 1,000 mg Q6HR PRN PAIN 1 - 3 03/25/21 11:30 04/22/21 23:29 Acetaminophen/ Hydrocodone Bitart ([place] 10mg) 1 each Q4H PRN PAIN 7 - 10 03/24/21 16:30 04/23/21 16:29 03/25/21 11:05 Ceftriaxone Sodium 2000 mg/ Sodium Chloride 100 ml @ 100 mls/hr Q24HRS 03/24/21 23:00 04/23/21 22:59 03/24/21 23:01 Enoxaparin Sodium (Lovenox) 40 mg Q24HRS 03/24/21 09:00 04/23/21 08:59 03/25/21 08:16 Ondansetron HCl (Zofran) 4 mg Q4H PRN NAUSEA / VOMITING 03/23/21 23:30 04/22/21 23:29 Pantoprazole Sodium (Protonix) 40 mg DAILY 03/24/21 09:00 04/23/21 08:59 03/25/21 08:16 Vancomycin HCl 1 gm/Sodium Chloride 250 ml @ 175 mls/hr Q12H 03/24/21 15:00 04/23/21 14:59 03/25/21 04:00 LEVEL 1 SEPSIS INFECTION CRITE: ABX Therapy LEVEL 2-SIRS (LIST ALL THAT AP: None/Not assessed Cardiovascular Evidence: Not Assessed or None Hematologic Evidence: None/Not assessed Hepatic Evidence: None/Not assessed Metabolic Evidence: None/Not assessed Neurological Evidence: None/Not assessed Respiratory Evidence: Need for O2 to keep>90% Renal Evidence: None/Not assessed O2 Sat by Pulse Oximetry: 92 Oxygen Flow Rate: 2.00 Assessment/Plan Assessment/Plan Assessment/Plan ASSESSMENT/ PLAN (1) Septic arthritis Status: Chronic Assessment & Plan: Acute exacerbation of chronic left knee spetic arthritis. S/p left knee total arthroplasty 7 mn ago, just released from rehab in [place], [place] yesterday and brought down to [place] by her daughter. ESR and CRP elevated, WBC normal. Vitals stable. XR left knee positive for subQ edema and small joint effusion, s/p total arthroplasty. -vancomycin and Rocephin -consult ortho and ID COMPLICATION TYPE: W/ ACUTE EXACERBATION ICD Code: M00.9 - Pyogenic arthritis, unspecified SNOMED: 020010060 (2) Atrial fibrillation Status: Chronic Assessment & Plan: EKG: normal sinus rhythm -continue home meds when known.(list provided 03/26/21) ICD Code: I48.91 - Unspecified atrial fibrillation-resume home med eliquix and amiodarone SNOMED: 40407576 (3) CAD (coronary artery disease) Status: Chronic Assessment & Plan: No hx of stents or CABG. s/p FL x 4. -continue home meds ICD Code: I25.10 - Atherosclerotic heart disease of [place] coronary artery wit hout angina pectoris SNOMED: 39102148 (4) COPD (chronic obstructive pulmonary disease)- resume home meds fluticasone, montelukast, Status: Chronic Assessment & Plan: Doing well on 2L NC, denies SOB, cough, wheezing, Does not use supplemental O2 at baseline. -continue home meds when known ICD Code: J44.9 - Chronic obstructive pulmonary disease, unspecified SNOMED: 34235031 (5) Pulmonary fibrosis Status: Chronic Assessment & Plan: See COPD plan above. ICD Code: J84.10 - Pulmonary fibrosis, unspecified SNOMED: 14858241 (6) Morbid obesity with BMI of 40.0-44.9, adult Status: Chronic Assessment & Plan: BMI 43.9. Likely complicating rehab and healing of left knee. ICD Code: E66.01 - Morbid (severe) obesity due to excess calories; Z68.41 - Body mass index [BMI] 40.0-44.9, adult SNOMED: 600041201, 190360541, 04001607971975 (7) History of FL (myocardial infarction) ICD Code: I25.2 - Old myocardial infarction- resume home meds SNOMED: 157643321 (8) History of stroke ICD Code: Z86.73 - Personal history of transient ischemic attack (TIA), and cerebral infarction without residual deficits - monitor - [employer] consult for placement. possible neglect DVT/GI prophylaxis- Eliquix/ Protonix Disposition: Discharge once case management finds placement and clinically stable Date Time Temp Pulse Resp B/P (MAP) Pulse Ox O2 Delivery O2 Flow Rate FiO2 03/23/21 20:58 98.3 90 16 93 03/23/21 20:58 148/77 (100) Room Air 03/23/21 21:05 2.00 03/24/21 00:56 28 Date Time Temp Pulse Resp B/P (MAP) Pulse Ox O2 Delivery O2 Flow Rate FiO2 03/24/21 00:57 19 99 03/24/21 00:56 115 Nasal Cannula 2.00 28 03/23/21 23:38 98.5 132/78 (96) Test 03/23/21 21:27 Antibody Screen NEGATIVE Blood Type O POSITIVE Test 03/23/21 21:27 03/23/21 22:05 White Blood Count 8.4 10^3/uL (4.5-11.0) Red Blood Count 3.85 10^6/uL (4.00-5.20) Hemoglobin 12.0 g/dL (12.0-15.0) Hematocrit 38.1 % (36.0-46.0) Mean Corpuscular Volume 99.0 fL (78-100) Mean Corpuscular Hemoglobin 31.2 pg (26-34) Mean Corpuscular Hemoglobin Concent 31.5 g/dL (33-36.5) Red Cell Distribution Width 18.4 % (11.5-14.5) Platelet Count 328 10^3/uL (150-400) Mean Platelet Volume 9.0 fL (7.8-11.0) Neutrophils (%) (Auto) 66.6 % (41.0-85.0) Lymphocytes (%) (Auto) 15.8 % (24.0-44.0) Monocytes (%) (Auto) 13.4 % (5.0-12.0) Neutrophils # (Auto) 5.6 10^3/uL (1.8-7.7) Lymphocytes # (Auto) 1.32 10^3/uL1 (1.0-4.8) Monocytes # (Auto) 1.1 10^3/uL (0.3-0.8) Absolute Immature Granulocyte (auto 0.07 10^3 u/L (0-2) Absolute Eosinophils (auto) 0.3 10^3/uL (0.0-0.2) Immature Granulocytes % 0.80 % (0.00-0.50) Eosinophils % 3.8 % (0.0-5.0) Basophils % 0.4 % (0.0-0.2) Basophils # 0.0 10^3/uL (0.0-0.1) Erythrocyte Sedimentation Rate 35 mm/hr (0-20) Prothrombin Time 14.3 SEC (9.6-12.0) Prothrombin Time INR (Non-Therap) 1.3 Activated Partial Thromboplast Time 33.4 SEC (24.67-30.72) Sodium Level 133 mmol/L (132-145) Potassium Level 3.6 mmol/L (3.6-5.2) Chloride Level 100.0 mmol/L (96-109) Carbon Dioxide Level 29.5 mmol/L (20.0-32) Anion Gap 7.1 Blood Urea Nitrogen 10 mg/dL (7-18) Creatinine 0.90 mg/dL (0.59-1.40) Estimated GFR () 73.9 (>/=60) Est GFR (CKD-EPI)(Non-Afr Samoan) 61.0 (>/=60) BUN/Creatinine Ratio 11.0 Glucose Level 108 mg/dL (70-110) Lactic Acid Level 1.0 mmol/L (0.5-1.9) Calcium Level 9.0 mg/dL (8.4-10.5) Total Bilirubin 0.9 mg/dL (0.2-1.0) Aspartate Amino Transf (AST/SGOT) 18 U/L (0-35) Alanine Aminotransferase (ALT/SGPT) 24 U/L (12-78) Alkaline Phosphatase 90 U/L (50-136) Total Creatine Kinase 27 U/L (26-192) Creatine Kinase MB 1.2 ng/mL (0.5-3.6) Troponin I < 0.02 ng/mL (0.00-0.05) C-Reactive Protein 7.78 mg/dL (0.00-5.00) Pro-B-Type Natriuretic Peptide 816 pg/mL (0-450) Total Protein 7.5 g/dL (6.4-8.2) Albumin 3.1 g/dL (3.4-5.0) Globulin 4.4 Albumin/Globulin Ratio 0.704 Procalcitonin < 0.05 ng/mL (0.05-0.5) SARS-CoV-2 Antigen (Rapid) NEGATIVE (NEGATIVE) KIT SOMMERS NP Mar 28, 2021 18:16
[2021-03-28 20:00] VITALS: BP 140/90
[2021-03-28] MEDS: ROCEPHIN 2,000 MG in NS 100ML 100 ML IV SCH (23:00)
[2021-03-29] VITALS: BP 138/86
[2021-03-29] MEDS: NORCO 10MG PO PRN ×2 (01:49→14:50)
[2021-03-29 04:27] VITALS: BP 144/88
[2021-03-29 05:46] LABS: CALCIUM 8.9 mg/dL (8.4-10.5); CARBON DIOXIDE 27.4 mmol/L (20.0-32)
[2021-03-29] MEDS: XARELTO PO SCH (08:33)
[2021-03-29] MEDS: PROTONIX PO SCH (08:33)
[2021-03-29 08:48] VITALS: BP 121/63
[2021-03-29 11:59] VITALS: BP 125/64
[2021-03-29] MEDS: VANCOMYCIN 1.5 GM/300 ML BAG 300 ML IV SCH (13:45)
--- NOTE | 2021-03-29 14:26 | PRM.DC ---
Discharge Summary Date of Discharge: Mar 29, 2021 Time of Request to Discharge: 14:19 Reason for Visit: left knee septic arthritis Patient History: Asthma G8 MOTHER FH: alcoholism G8 MOTHER No known health problems G8 FATHER 19 CHILD 19 CHILD 19 CHILD 19 CHILD 19 CHILD General: Alert, Oriented X3, Cooperative, No acute distress HEENT: Atraumatic, PERRLA, Mucous membr. moist/pink Neck: No thyromegaly Lungs: Clear to auscultation, Normal air movement Heart: Normal S1, Normal S2 Abdomen: Normal bowel sounds, Soft, No tenderness Extremities: No clubbing, No cyanosis, Other (left knee almost healed surgical incision) Skin: No breakdown, Other (almost healed surgical incision to left knee) Neuro: Normal speech Psych/Mental Status: Other (flat affect) Scheduled Albuterol Sulfate (Proair Respiclick), 90 MCG IH Q4, (Reported) Amiodarone HCl (Amiodarone HCl), 2 TAB PO QD, (Reported) Budesonide/Formoterol Fumarate (Symbicort 160-4.5 Mcg Inhaler), 2 PUFF IH DAILY24, (Reported) Buspirone Hcl (Buspirone Hcl), 1 TAB PO TID, (Reported) Cefdinir (Cefdinir), 1 CAP PO BID, (Reported) Doxycycline Hyclate (Doxycycline Hyclate), 1 CAP PO BID, (Reported) Fluticasone Propionate (Fluticasone Propionate), 1 SPR NA DAILY, (Reported) Gabapentin (Neurontin), 1 CAP PO TID, (Reported) Montelukast Sodium (Montelukast Sodium), 1 TAB PO DAILY, (Reported) Pantoprazole Sodium (Pantoprazole Sodium), 20 MG PO DAILY24, (Reported) Rivaroxaban (Xarelto), 1 TAB PO DAILY24, (Reported) Vilazodone Hydrochloride (Viibryd), 1 TAB PO DAILY, (Reported) Scheduled PRN Diclofenac Sodium (Diclofenac Sodium), 100 GM TP Q6HR PRN for PAIN 1 - 3, (Reported) Sepsis Evaluation @ Discharge Vital Sign - Last 24 Hours 03/24/21 03/24/21 03/24/21 03/24/21 17:08 19:26 20:00 20:23 Temp 97.9 97.7 Pulse 82 86 82 Resp 16 16 16 B/P (MAP) 124/74 (91) 136/78 (97) Pulse Ox 90 92 90 O2 Delivery Nasal Cannula Nasal Cannula O2 Flow Rate 2.00 2.00 FiO2 28 03/24/21 03/25/21 03/25/21 03/25/21 23:55 04:25 07:30 08:44 Temp 98.1 97.5 98.4 Pulse 79 76 63 82 Resp 16 16 13 16 B/P (MAP) 111/65 (80) 124/70 (88) 135/81 (99) Pulse Ox 95 96 90 90 O2 Delivery Nasal Cannula O2 Flow Rate 2.00 FiO2 28 03/25/21 03/25/21 11:30 12:21 Temp 97.9 Pulse 78 Resp 15 B/P (MAP) 147/88 (107) Pulse Ox 94 O2 Delivery Nasal Cannula O2 Flow Rate 2.00 Intake and Output 03/25/21 07:00 Intake Total 630 ml Output Total 250 ml Balance 380 ml Laboratory Tests Test 03/23/21 21:27 03/23/21 22:05 03/24/21 05:25 03/25/21 04:51 White Blood Count 8.4 10^3/uL 9.4 10^3/uL 7.3 10^3/uL Red Blood Count 3.85 10^6/uL 3.52 10^6/uL 3.13 10^6/uL Hemoglobin 12.0 g/dL 11.0 g/dL 9.8 g/dL Hematocrit 38.1 % 34.1 % 30.7 % Mean Corpuscular Volume 99.0 fL 96.9 fL 98.1 fL Mean Corpuscular Hemoglobin 31.2 pg 31.3 pg 31.3 pg Mean Corpuscular Hemoglobin Concent 31.5 g/dL 32.3 g/dL 31.9 g/dL Red Cell Distribution Width 18.4 % 18.2 % 18.2 % Platelet Count 328 10^3/uL 297 10^3/uL 260 10^3/uL Mean Platelet Volume 9.0 fL 9.2 fL 10.0 fL Neutrophils (%) (Auto) 66.6 % 67.0 % 59.1 % Lymphocytes (%) (Auto) 15.8 % 13.7 % 17.1 % Monocytes (%) (Auto) 13.4 % 14.3 % 17.0 % Neutrophils # (Auto) 5.6 10^3/uL 6.3 10^3/uL 4.3 10^3/uL Lymphocytes # (Auto) 1.32 10^3/uL1 1.29 10^3/uL1 1.24 10^3/uL1 Monocytes # (Auto) 1.1 10^3/uL 1.3 10^3/uL 1.2 10^3/uL Absolute Immature Granulocyte (auto 0.07 10^3 u/L 0.03 10^3 u/L 0.04 10^3 u/L Absolute Eosinophils (auto) 0.3 10^3/uL 0.4 10^3/uL 0.4 10^3/uL Immature Granulocytes % 0.80 % 0.30 % 0.60 % Eosinophils % 3.8 % 4.5 % 6.1 % Basophils % 0.4 % 0.5 % 0.7 % Basophils # 0.0 10^3/uL 0.1 10^3/uL 0.1 10^3/uL Erythrocyte Sedimentation Rate 35 mm/hr Prothrombin Time 14.3 SEC Prothrombin Time INR (Non-Therap) 1.3 Activated Partial Thromboplast Time 33.4 SEC Sodium Level 133 mmol/L 139 mmol/L 139 mmol/L Potassium Level 3.6 mmol/L 3.9 mmol/L 3.5 mmol/L Chloride Level 100.0 mmol/L 105.0 mmol/L 107.0 mmol/L Carbon Dioxide Level 29.5 mmol/L 29.8 mmol/L 27.3 mmol/L Anion Gap 7.1 8.1 8.2 Blood Urea Nitrogen 10 mg/dL 10 mg/dL 9 mg/dL Creatinine 0.90 mg/dL 0.86 mg/dL 0.83 mg/dL Estimated GFR () 73.9 77.8 81.1 Est GFR (CKD-EPI)(Non-Afr [place]) 61.0 64.3 67.0 BUN/Creatinine Ratio 11.0 11.0 10.0 Glucose Level 108 mg/dL 101 mg/dL 85 mg/dL Lactic Acid Level 1.0 mmol/L Calcium Level 9.0 mg/dL 8.9 mg/dL 8.2 mg/dL Total Bilirubin 0.9 mg/dL 0.6 mg/dL 0.3 mg/dL Aspartate Amino Transf (AST/SGOT) 18 U/L 17 U/L 20 U/L Alanine Aminotransferase (ALT/SGPT) 24 U/L 21 U/L 18 U/L Alkaline Phosphatase 90 U/L 71 U/L 59 U/L Total Creatine Kinase 27 U/L Creatine Kinase MB 1.2 ng/mL Troponin I < 0.02 ng/mL C-Reactive Protein 7.78 mg/dL Pro-B-Type Natriuretic Peptide 816 pg/mL Total Protein 7.5 g/dL 6.3 g/dL 5.7 g/dL Albumin 3.1 g/dL 2.5 g/dL 2.1 g/dL Globulin 4.4 3.8 3.6 Albumin/Globulin Ratio 0.704 0.657 0.583 Procalcitonin < 0.05 ng/mL SARS-CoV-2 Antigen (Rapid) NEGATIVE Current Medications Medications (Trade) Dose Ordered Sig/Mj PRN Reason Start Time Stop Time Status Last Admin Acetaminophen (Tylenol) 1,000 mg Q6HR PRN PAIN 1 - 3 03/25/21 11:30 04/22/21 23:29 Acetaminophen/ Hydrocodone Bitart ([place] 10mg) 1 each Q4H PRN PAIN 7 - 10 03/24/21 16:30 04/23/21 16:29 03/25/21 11:05 Ceftriaxone Sodium 2000 mg/ Sodium Chloride 100 ml @ 100 mls/hr Q24HRS 03/24/21 23:00 04/23/21 22:59 03/24/21 23:01 Enoxaparin Sodium (Lovenox) 40 mg Q24HRS 03/24/21 09:00 04/23/21 08:59 03/25/21 08:16 Ondansetron HCl (Zofran) 4 mg Q4H PRN NAUSEA / VOMITING 03/23/21 23:30 04/22/21 23:29 Pantoprazole Sodium (Protonix) 40 mg DAILY 03/24/21 09:00 04/23/21 08:59 03/25/21 08:16 Vancomycin HCl 1 gm/Sodium Chloride 250 ml @ 175 mls/hr Q12H 03/24/21 15:00 04/23/21 14:59 03/25/21 04:00 Stroke Discharge Summary Discharge on Antcoagulation Th: Yes Discharge on Statins: No Course Sepsis Screening Results: Posi: POSITIVE Sepsis Qualifier/Stage: SEPSIS RISK DATE SEEN BY PHYSICIAN: Mar 29, 2021 TIME SEEN BY PROVIDER: 14:23 Duration or Total Time Spent w: 25 Vitals & review Data Vital Sign - Last 24 Hours 03/24/21 03/24/21 03/24/21 03/24/21 17:08 19:26 20:00 20:23 Temp 97.9 97.7 Pulse 82 86 82 Resp 16 16 16 B/P (MAP) 124/74 (91) 136/78 (97) Pulse Ox 90 92 90 O2 Delivery Nasal Cannula Nasal Cannula O2 Flow Rate 2.00 2.00 FiO2 28 03/24/21 03/25/21 03/25/21 03/25/21 23:55 04:25 07:30 08:44 Temp 98.1 97.5 98.4 Pulse 79 76 63 82 Resp 16 16 13 16 B/P (MAP) 111/65 (80) 124/70 (88) 135/81 (99) Pulse Ox 95 96 90 90 O2 Delivery Nasal Cannula O2 Flow Rate 2.00 FiO2 28 03/25/21 03/25/21 11:30 12:21 Temp 97.9 Pulse 78 Resp 15 B/P (MAP) 147/88 (107) Pulse Ox 94 O2 Delivery Nasal Cannula O2 Flow Rate 2.00 Intake and Output 03/25/21 07:00 Intake Total 630 ml Output Total 250 ml Balance 380 ml Laboratory Tests Test 03/23/21 21:27 03/23/21 22:05 03/24/21 05:25 03/25/21 04:51 White Blood Count 8.4 10^3/uL 9.4 10^3/uL 7.3 10^3/uL Red Blood Count 3.85 10^6/uL 3.52 10^6/uL 3.13 10^6/uL Hemoglobin 12.0 g/dL 11.0 g/dL 9.8 g/dL Hematocrit 38.1 % 34.1 % 30.7 % Mean Corpuscular Volume 99.0 fL 96.9 fL 98.1 fL Mean Corpuscular Hemoglobin 31.2 pg 31.3 pg 31.3 pg Mean Corpuscular Hemoglobin Concent 31.5 g/dL 32.3 g/dL 31.9 g/dL Red Cell Distribution Width 18.4 % 18.2 % 18.2 % Platelet Count 328 10^3/uL 297 10^3/uL 260 10^3/uL Mean Platelet Volume 9.0 fL 9.2 fL 10.0 fL Neutrophils (%) (Auto) 66.6 % 67.0 % 59.1 % Lymphocytes (%) (Auto) 15.8 % 13.7 % 17.1 % Monocytes (%) (Auto) 13.4 % 14.3 % 17.0 % Neutrophils # (Auto) 5.6 10^3/uL 6.3 10^3/uL 4.3 10^3/uL Lymphocytes # (Auto) 1.32 10^3/uL1 1.29 10^3/uL1 1.24 10^3/uL1 Monocytes # (Auto) 1.1 10^3/uL 1.3 10^3/uL 1.2 10^3/uL Absolute Immature Granulocyte (auto 0.07 10^3 u/L 0.03 10^3 u/L 0.04 10^3 u/L Absolute Eosinophils (auto) 0.3 10^3/uL 0.4 10^3/uL 0.4 10^3/uL Immature Granulocytes % 0.80 % 0.30 % 0.60 % Eosinophils % 3.8 % 4.5 % 6.1 % Basophils % 0.4 % 0.5 % 0.7 % Basophils # 0.0 10^3/uL 0.1 10^3/uL 0.1 10^3/uL Erythrocyte Sedimentation Rate 35 mm/hr Prothrombin Time 14.3 SEC Prothrombin Time INR (Non-Therap) 1.3 Activated Partial Thromboplast Time 33.4 SEC Sodium Level 133 mmol/L 139 mmol/L 139 mmol/L Potassium Level 3.6 mmol/L 3.9 mmol/L 3.5 mmol/L Chloride Level 100.0 mmol/L 105.0 mmol/L 107.0 mmol/L Carbon Dioxide Level 29.5 mmol/L 29.8 mmol/L 27.3 mmol/L Anion Gap 7.1 8.1 8.2 Blood Urea Nitrogen 10 mg/dL 10 mg/dL 9 mg/dL Creatinine 0.90 mg/dL 0.86 mg/dL 0.83 mg/dL Estimated GFR () 73.9 77.8 81.1 Est GFR (CKD-EPI)(Non-Afr [place]an) 61.0 64.3 67.0 BUN/Creatinine Ratio 11.0 11.0 10.0 Glucose Level 108 mg/dL 101 mg/dL 85 mg/dL Lactic Acid Level 1.0 mmol/L Calcium Level 9.0 mg/dL 8.9 mg/dL 8.2 mg/dL Total Bilirubin 0.9 mg/dL 0.6 mg/dL 0.3 mg/dL Aspartate Amino Transf (AST/SGOT) 18 U/L 17 U/L 20 U/L Alanine Aminotransferase (ALT/SGPT) 24 U/L 21 U/L 18 U/L Alkaline Phosphatase 90 U/L 71 U/L 59 U/L Total Creatine Kinase 27 U/L Creatine Kinase MB 1.2 ng/mL Troponin I < 0.02 ng/mL C-Reactive Protein 7.78 mg/dL Pro-B-Type Natriuretic Peptide 816 pg/mL Total Protein 7.5 g/dL 6.3 g/dL 5.7 g/dL Albumin 3.1 g/dL 2.5 g/dL 2.1 g/dL Globulin 4.4 3.8 3.6 Albumin/Globulin Ratio 0.704 0.657 0.583 Procalcitonin < 0.05 ng/mL SARS-CoV-2 Antigen (Rapid) NEGATIVE Current Medications Medications (Trade) Dose Ordered Sig/Mj PRN Reason Start Time Stop Time Status Last Admin Acetaminophen (Tylenol) 1,000 mg Q6HR PRN PAIN 1 - 3 03/25/21 11:30 04/22/21 23:29 Acetaminophen/ Hydrocodone Bitart ([place] 10mg) 1 each Q4H PRN PAIN 7 - 10 03/24/21 16:30 04/23/21 16:29 03/25/21 11:05 Ceftriaxone Sodium 2000 mg/ Sodium Chloride 100 ml @ 100 mls/hr Q24HRS 03/24/21 23:00 04/23/21 22:59 03/24/21 23:01 Enoxaparin Sodium (Lovenox) 40 mg Q24HRS 03/24/21 09:00 04/23/21 08:59 03/25/21 08:16 Ondansetron HCl (Zofran) 4 mg Q4H PRN NAUSEA / VOMITING 03/23/21 23:30 04/22/21 23:29 Pantoprazole Sodium (Protonix) 40 mg DAILY 03/24/21 09:00 04/23/21 08:59 03/25/21 08:16 Vancomycin HCl 1 gm/Sodium Chloride 250 ml @ 175 mls/hr Q12H 03/24/21 15:00 04/23/21 14:59 03/25/21 04:00 LEVEL 1 SEPSIS INFECTION CRITE: ABX Therapy LEVEL 2-SIRS (LIST ALL THAT AP: None/Not assessed Cardiovascular Evidence: Not Assessed or None Hematologic Evidence: None/Not assessed Hepatic Evidence: None/Not assessed Metabolic Evidence: None/Not assessed Neurological Evidence: None/Not assessed Respiratory Evidence: Need for O2 to keep>90%, O2 SAT<90room air Renal Evidence: None/Not assessed O2 Sat by Pulse Oximetry: 98 Oxygen Flow Rate: 2.00 Plan Discharge Disposition: Stable 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
[2021-03-29 15:51] VITALS: BP 155/91
== END 2021-03-29 20:10 | disposition home health service (06) | DRG 549 ==
LOC: ER 20:35 → EDBEDREQTM 23:05 → MS 23:05
PROVIDERS: ADMIT Family Medicine; ATTEND Family Medicine
PROC: 05HC33Z Insertion of Infusion Device into Left Basilic Vein, Percutaneous Approach (ICD-10-PCS; principal; 2021-03-26)
DX: M00.9 Pyogenic arthritis, unspecified (principal); Z68.41 Body mass index [BMI] 40.0-44.9, adult; J84.10 Pulmonary fibrosis, unspecified; J44.9 Chronic obstructive pulmonary disease, unspecified; G89.29 Other chronic pain; K21.9 Gastro-esophageal reflux disease without esophagitis; M54.50 Low back pain, unspecified; Z96.652 Presence of left artificial knee joint; I25.10 Atherosclerotic heart disease of native coronary artery without angina pectoris; E66.01 Morbid (severe) obesity due to excess calories; I48.91 Unspecified atrial fibrillation; Z20.822 Contact with and (suspected) exposure to COVID-19; F10.20 Alcohol dependence, uncomplicated; N18.9 Chronic kidney disease, unspecified; Z79.2 Long term (current) use of antibiotics; Z86.73 Personal history of transient ischemic attack (TIA), and cerebral infarction without residual deficits; I25.2 Old myocardial infarction; Z88.5 Allergy status to narcotic agent; Z88.0 Allergy status to penicillin; Z88.8 Allergy status to other drugs, medicaments and biological substances; Z82.5 Family history of asthma and other chronic lower respiratory diseases
CPT/HCPCS: 36415; 36569; 71045; 80048; 80053; 80202; 82550; 82553; 83605; 83880; 84145; 84484; 85025; 85610; 85651; 85730; 86140; 86900; 87040; 87426; 93005; 93970; 97162; 99285; G0378; J0696; J1650; J3370; J7040; J7050; 73560-LT

== ENCOUNTER → 2021-04-13 | Outpatient (CLI) | payer MEDICARE ==
[~2021-04-13] MED LIST: ALBU90AE IH; AMIO100T4 PO; ASPI-667 PO; BUDE10.2 IH; BUSP10TA PO; CEFD300C2 PO; DICL100G29 TP; DOXY100C5 PO; FLUT16SP; GABA300C PO; MONT-38 PO; PANT40TA6 PO; PRAV20TA2 PO; RIVA20TA PO; VILA40TA PO
--- NOTE | 2021-04-13 15:56 | DIREP ---
PROCEDURE:XRAY KNEE 3 VIEWS-LT COMPARISON:None. INDICATIONS:LT KNEE PAIN FINDINGS: BONES:Left knee arthroplasty. Hardware is well seated and intact. JOINTS:Normal alignment about the arthroplasty. SOFT TISSUES:Normal. OTHER:No additional findings. CONCLUSION: Left knee arthroplasty is well seated and intact. No acute fracture. Dictated by: Wes Marin MD on 04/13/2021 at 03:54 PM
== END | disposition home or self-care (01) ==
LOC: RAD 12:06
PROVIDERS: ATTEND Family Medicine
DX: M25.562 Pain in left knee (principal); Z96.652 Presence of left artificial knee joint
CPT/HCPCS: 73562-LT

== ENCOUNTER 2021-04-21 12:40 | Emergency (ER) | payer MEDICARE ==
[~2021-04-21] VITALS: Ht 152.4 cm; Wt 98.4 kg
[~2021-04-21 12:40] MED LIST changes: -ASPI-667 PO; -PRAV20TA2 PO
[2021-04-21 12:56] VITALS: BP 142/67
[2021-04-21 13:00] VITALS: BP 142/67
--- NOTE | 2021-04-21 13:01 | NUR ---
ARRIVAL PATIENT ARRIVED TO ED8 VIA GURNEY BY [facility], EMS CALLED FOR A FALL LAST NIGHT, PATIENT STATES SHE WALKED UP 3 STEPS AND HER RIGHT KNEE GAVE OUT CAUSING HER TO FALL, LAID ON THE FLOOR UNTIL THIS MORNING WITH FAMILY MAKING HER COMFORTABLE DUE TO THE INABILITY TO GET PATIENT OUT OF THE FLOOR, EMS BROUGHT TO THE ED FOR EVAL, DOCTOR DELISA NOTIFIED OF PATIENT'S ARRIVAL.
--- NOTE | 2021-04-21 13:34 | ER.PDOC ---
General Chief Complaint: Extremities Stated Complaint: FALL Time seen by MD: 13:32 Source: patient Exam Limitations: no limitations History of Present Illness Initial Comments Bilateral knee and right foot pain status post fall this afternoon. Patient was going upstairs when she tripped. She denies hitting her head and no headache. She denies neck pain. No other injury. Occurred: just prior to arrival Where: home Severity: moderate Injuries/Pain Location: lower extremity Context: Tripped Loss of Consciousness: No Loss of Consciousness Associated Symptoms: denies symptoms Allergies: Coded Allergies: sulfamethoxazole (Verified Allergy, Intermediate, 03/24/21) trimethoprim (Verified Allergy, Intermediate, 03/24/21) Penicillins (Verified Allergy, Unknown, Rash, 03/23/21) fentanyl (Verified Allergy, Unknown, 03/23/21) hydromorphone (Verified Allergy, Unknown, 03/23/21) MEDS Reported Medications Pantoprazole Sodium (PANTOPRAZOLE SODIUM) 40 Mg Tablet.dr, 20 MG PO DAILY24 03/26/21 Montelukast Sodium (MONTELUKAST SODIUM) 10 Mg Tablet, 1 TAB PO DAILY, #30 TAB 5 Refills 03/26/21 Gabapentin (NEURONTIN) 300 Mg Capsule, 1 CAP PO TID, #90 CAP 3 Refills 03/26/21 Fluticasone Propionate (FLUTICASONE PROPIONATE) 16 Gm [place].susp, 1 SPR NA DAILY, #1 INHALER 11 Refills use one spray in each nostiril once daily 03/26/21 Buspirone Hcl (BUSPIRONE HCL) 10 Mg Tablet, 1 TAB PO TID, #60 TAB 1 Refill TID at 0800,1400,2100 03/26/21 Budesonide/Formoterol Fumarate (SYMBICORT 160-4.5 MCG INHALER) 10.2 Gm Hfa.aer.ad, 2 PUFF IH DAILY24, #10.6 GRAM 3 Refills 03/26/21 Amiodarone HCl (Amiodarone HCl) 100 Mg Tablet, 2 TAB PO QD for 30 Days, #30 TAB 0 Refills 03/26/21 Albuterol Sulfate (Proair Respiclick) 90 Mcg Aer.pow.ba, 90 MCG IH Q4, PKG PRN 03/26/21 Diclofenac Sodium (Diclofenac Sodium) 1 % Gel..gram., 100 GM TP Q6HR PRN for PAIN 1 - 3, #1 TUBE APPLY 2GM TOPICALLY TO KNEES EVERY 6 HOURS NEEDED FOR PAIN 03/26/21 Doxycycline Hyclate (DOXYCYCLINE HYCLATE) 100 Mg Capsule, 1 CAP PO BID for septic arthritis for 34 Days, #68 CAP 03/26/21 Cefdinir (CEFDINIR) 300 Mg Capsule, 1 CAP PO BID for 34 Days, #68 CAP 0 Refills 03/26/21 Vilazodone Hydrochloride (VIIBRYD) 40 Mg Tablet, 1 TAB PO DAILY for depression, #30 TAB 0 Refills 03/26/21 Rivaroxaban (XARELTO) 20 Mg Tablet, 1 TAB PO DAILY24 for prevent clots for 30 Days, #30 TAB 0 Refills with food 03/26/21 Past Medical History Medical History: asthma, COPD, other Surgical History: knee Family History Significant Family History: no pertinent family hx Social History Smoking: non-smoker Alcohol Use: none Drug Use: none Review of Systems Constitutional: no symptoms reported Respiratory: no symptoms reported Cardiovascular: no symptoms reported Gastrointestinal: no symptoms reported Musculoskeletal: see HPI All Other Systems: Reviewed and Negative Physical Exam General Appearance: No Apparent Distress, WD/WN Head: No Evidence of Injury Eyes: bilateral eye normal inspection Ears, Nose, Mouth, Throat: Hearing Grossly Normal, No Evidence of ENT Injury, No Dental Injury Neck: Non-Tender, Normal Alignment, Nexus criteria neg, Normal Inspection Cardiovascular/Respiratory: Regular Rate, Rhythm, No M/R/G, Normal Peripheral Pulses, No JVD, Normal Breath Sounds, No Respiratory Distress Back: Normal Inspection, No CVA Tenderness, No Vertebral Tenderness Extremities: Tenderness (both knees and right foot) 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 as Tested, No Motor/Sensory Deficits, Alert, Normal Mood/Affect, Oriented x 3 Skin: Other (abrasion knees) Tariq Coma Score Best Eye Response: (4) Open Spontaneously Best Verbal Response: (5) Oriented Best Motor Response: (6) Obeys Commands Results/Orders Results/Orders Orders - JANELLE HERCULES MD Xr Knee Rt 2v (04/21/21 13:28) Xr Knee Lt 2v (04/21/21 13:28) Xr Foot Rt (04/21/21 13:28) Hydrocodone/Acetaminophen ([place] 10mg) (04/21/21 13:28) Vital Signs Date Time Temp Pulse Resp B/P (MAP) Pulse Ox O2 Delivery O2 Flow Rate FiO2 04/21/21 13:00 98.7 74 18 142/67 (92) 93 Room Air 04/21/21 12:56 98.7 74 18 142/67 (92) 93 Room Air 04/21/21 12:56 98.7 74 18 04/21/21 12:56 98.7 74 18 93 Administered Medications Medications (Trade) Dose Ordered Sig/Mj Route PRN Reason Start Time Stop Time Status Last Admin Dose Admin Acetaminophen/ Hydrocodone Bitart ([place] 10mg) 1 each STAT STAT PO 04/21/21 13:28 04/21/21 13:31 DC 04/21/21 13:49 1 EACH Progress Progress X-rays of bilateral knees and right foot shows no acute abnormalities. ER DEPART Departure Time of Disposition: 14:26 Disposition: 01 HOME / SELF CARE / HOMELESS Impression: Primary Impression: Contusion, knee Additional Impressions: Contusion, foot Abrasion NEC Condition: Improved Referrals: PCP,UNKNOWN (PCP) PRIMARY CARE PROVIDER Additional Instructions: Clean abrasions daily with soap and water and apply Neosporin Continue hydrocodone at home Follow-up with your PCP in 1 week Return to ED if any concerns or worsening Duration or Time Spent with Pa: 20 min Problem Qualifiers Primary Impression: Contusion, knee Encounter type: initial encounter Laterality: unspecified laterality Qualified Codes: S80.00XA - Contusion of unspecified knee, initial encounter Additional Impressions: Contusion, foot Encounter type: initial encounter Laterality: unspecified laterality Qualified Codes: S90.30XA - Contusion of unspecified foot, initial encounter JANELLE HERCULES MD Apr 21, 2021 13:34
[2021-04-21] MEDS: NORCO 10MG PO STA (13:49)
--- NOTE | 2021-04-21 14:03 | DIREP ---
PROCEDURE:XRAY KNEE 2 VWS-RT COMPARISON:None. INDICATIONS:pain/injury S/P fall FINDINGS: BONES:Moderate osteophytes in the medial lateral compartments. JOINTS:Normal. SOFT TISSUES:Normal. OTHER:No additional findings. CONCLUSION:Severe degenerative changes. No visible acute fracture. Osteopenia limits evaluation for nondisplaced fracture. Dictated by: Deandre Oneal M.D. on 04/21/2021 at 02:01 PM
--- NOTE | 2021-04-21 14:04 | DIREP ---
PROCEDURE:XRAY KNEE 2 VWS-LT COMPARISON:[facility], , XRAY KNEE 1-2 VWS-LT, 03/23/2021, 08:31 PM. INDICATIONS:pain/injury S/P fall FINDINGS: BONES:Total knee arthroplasty. No visible fracture. JOINTS:Small joint effusion is small calcified bodies in the posterior joint space. SOFT TISSUES:Normal. OTHER:No additional findings. CONCLUSION:No visible acute fracture. Small joint effusion with multiple small intra-articular bodies. Dictated by: Deandre Oneal M.D. on 04/21/2021 at 02:02 PM
--- NOTE | 2021-04-21 14:08 | DIREP ---
PROCEDURE:XRAY FOOT MIN 3 VWS-RT COMPARISON:None. INDICATIONS:pain FINDINGS: BONES:No acute fractures. Old healed fracture distal 2nd metatarsal shaft. Plantar calcaneal spur. JOINTS:Moderate hallux valgus deformity. SOFT TISSUES:Normal. OTHER:No additional findings. CONCLUSION: 1. No acute abnormalities. 2. Moderate hallux valgus deformity. Dictated by: Darrell Norris M.D. on 04/21/2021 at 02:02 PM
--- NOTE | 2021-04-21 14:20 | NUR ---
[facility] CALLED TO INFORM THE ED THAT PATIENT HAS AN APS CASE WITH [facility] AND #[id number]
[2021-04-21] MEDS ORDERED: BOOSTRIX IM ONE (14:34)
[2021-04-21] MEDS: BOOSTRIX IM ONE (14:35)
== END 2021-04-21 15:49 | disposition home or self-care (01) ==
LOC: EDUNIT# 12:40 → ER 12:40 → EDBD 12:40 → ER 15:49
DX: S80.01XA Contusion of right knee, initial encounter (principal); S90.31XA Contusion of right foot, initial encounter; J44.9 Chronic obstructive pulmonary disease, unspecified; Z79.01 Long term (current) use of anticoagulants; Z79.51 Long term (current) use of inhaled steroids; Z79.899 Other long term (current) drug therapy; Z88.0 Allergy status to penicillin; Z88.1 Allergy status to other antibiotic agents; Z88.2 Allergy status to sulfonamides; Z88.5 Allergy status to narcotic agent; W19.XXXA Unspecified fall, initial encounter; Y93.89 Activity, other specified; Y92.89 Other specified places as the place of occurrence of the external cause; Y99.8 Other external cause status
CPT/HCPCS: 73560; 90471; 90715; 99284; 73630-RT

== ENCOUNTER 2021-04-24 20:44 | Observation (INO) | payer MEDICARE ==
[~2021-04-24] VITALS: Ht 152.4 cm; Wt 105.2 kg
[2021-04-24 20:44] VITALS: BP 129/88
--- NOTE | 2021-04-24 20:44 | NUR ---
ARRIVAL ARRIVED VIA EMS. FELL BACKWARDS DOWN 3 STEPS 3 DAYS AGO LEFT KNEE WENT OUT. HAD TOTAL LEFT KNEE REPLACEMENT ABOUT 5 MONTHS AGO. C/O PAIN 01/25. WAS GIVEN TORADOL 60MG IV BY EMS. ALERT AND ORIENTED X3.
[2021-04-24] MEDS ORDERED: NORCO 7.5MG PO STA (21:14)
[2021-04-24] MEDS ORDERED: ROBAXIN PO STA (21:14)
[2021-04-24] MEDS ORDERED: NORCO 7.5MG PO ONE (21:20)
[2021-04-24] MEDS ORDERED: ROBAXIN ONE (21:20)
--- NOTE | 2021-04-24 21:22 | ER.PDOC ---
General Chief Complaint: Extremities Stated Complaint: CAN'T MOVE LEGS Time seen by MD: 21:10 Source: patient Exam Limitations: no limitations History of Present Illness Initial Comments Patient with history of pulmonary fibrosis, COPD and bilateral knee replacements presents with complaint of low back pain status post fall several days ago. Patient states she fell down 3 steps when her knee gave out 3 days ago. Patient was seen in the emergency department where they x-rayed her knees and her ankles but did not image her back. Patient states she has a history of chronic low back pain but it has been worse since the fall and she has not been able to move around freely. Patient states she is basically been lying on the sofa since she fell. She states her bowel and bladder function are within normal limits. She is able to move her bilateral lower extremities. Allergies: Coded Allergies: sulfamethoxazole (Verified Allergy, Intermediate, 03/24/21) trimethoprim (Verified Allergy, Intermediate, 03/24/21) Penicillins (Verified Allergy, Unknown, Rash, 03/23/21) fentanyl (Verified Allergy, Unknown, 03/23/21) hydromorphone (Verified Allergy, Unknown, 03/23/21) MEDS Reported Medications Pantoprazole Sodium (PANTOPRAZOLE SODIUM) 40 Mg Tablet.dr, 20 MG PO DAILY24 03/26/21 Montelukast Sodium (MONTELUKAST SODIUM) 10 Mg Tablet, 1 TAB PO DAILY, #30 TAB 5 Refills 03/26/21 Gabapentin (NEURONTIN) 300 Mg Capsule, 1 CAP PO TID, #90 CAP 3 Refills 03/26/21 Fluticasone Propionate (FLUTICASONE PROPIONATE) 16 Gm [place].susp, 1 SPR NA DAILY, #1 INHALER 11 Refills use one spray in each nostiril once daily 03/26/21 Buspirone Hcl (BUSPIRONE HCL) 10 Mg Tablet, 1 TAB PO TID, #60 TAB 1 Refill TID at 0800,1400,2100 03/26/21 Budesonide/Formoterol Fumarate (SYMBICORT 160-4.5 MCG INHALER) 10.2 Gm Hfa.aer.ad, 2 PUFF IH DAILY24, #10.6 GRAM 3 Refills 03/26/21 Amiodarone HCl (Amiodarone HCl) 100 Mg Tablet, 2 TAB PO QD for 30 Days, #30 TAB 0 Refills 03/26/21 Albuterol Sulfate (Proair Respiclick) 90 Mcg Aer.pow.ba, 90 MCG IH Q4, PKG PRN 03/26/21 Diclofenac Sodium (Diclofenac Sodium) 1 % Gel..gram., 100 GM TP Q6HR PRN for PAIN 1 - 3, #1 TUBE APPLY 2GM TOPICALLY TO KNEES EVERY 6 HOURS NEEDED FOR PAIN 03/26/21 Doxycycline Hyclate (DOXYCYCLINE HYCLATE) 100 Mg Capsule, 1 CAP PO BID for septic arthritis for 34 Days, #68 CAP 03/26/21 Cefdinir (CEFDINIR) 300 Mg Capsule, 1 CAP PO BID for 34 Days, #68 CAP 0 Refills 03/26/21 Vilazodone Hydrochloride (VIIBRYD) 40 Mg Tablet, 1 TAB PO DAILY for depression, #30 TAB 0 Refills 03/26/21 Rivaroxaban (XARELTO) 20 Mg Tablet, 1 TAB PO DAILY24 for prevent clots for 30 Days, #30 TAB 0 Refills with food 03/26/21 Past Medical History Medical History: other Surgical History: other Social History Alcohol Use: occassionally Drug Use: none Review of Systems Constitutional: no symptoms reported Eyes: no symptoms reported Ears, Nose, Mouth, Throat: no symptoms reported Respiratory: no symptoms reported Cardiovascular: no symptoms reported Gastrointestinal: no symptoms reported Genitourinary: no symptoms reported Musculoskeletal: back pain Skin: no symptoms reported Physical Exam General Appearance: No Apparent Distress, WD/WN Head: No Evidence of Injury Ears, Nose, Mouth, Throat: Hearing Grossly Normal, No Evidence of ENT Injury Neck: Non-Tender, Normal Alignment, Nexus criteria neg, Normal Inspection Cardiovascular/Respiratory: Normal Peripheral Pulses, No Respiratory Distress Gastrointestinal: Non Tender, Other (Obese) Back: No Vertebral Tenderness Extremities: Other (Patient has bruising to bilateral anterior lower extremities. She has a healing wound to her left knee that has a mild amount of erythema. 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 She is able to move her bilateral lower extremities well. Patient does have bilateral knee replacements so her flexion is somewhat limited. Results/Orders Results/Orders Orders - JOSE MANUEL KELLEY MD Ct Lumbar Wo Contrast (04/24/21 21:14) Hydrocodone/Acetaminophen ([place] 7.5mg) (04/24/21 21:14) Methocarbamol (Robaxin) (04/24/21 21:14) Methocarbamol (Robaxin) (04/24/21 21:20) Hydrocodone/Acetaminophen ([place] 7.5mg) (04/24/21 21:20) 0.9 % Sodium Chloride (Ns 100ml) (04/24/21 21:37) Ceftriaxone Sodium (Rocephin) (04/24/21 21:37) Vital Signs Date Time Temp Pulse Resp B/P (MAP) Pulse Ox O2 Delivery O2 Flow Rate FiO2 04/24/21 20:44 98.3 91 18 95 04/24/21 20:44 98.3 91 18 04/24/21 20:44 98.3 91 18 129/88 (102) 95 Room Air Administered Medications Medications (Trade) Dose Ordered Sig/Mj Route PRN Reason Start Time Stop Time Status Last Admin Dose Admin Acetaminophen/ Hydrocodone Bitart ([place] 7.5mg) 1 each OT STAT PO 04/24/21 21:14 04/24/21 21:17 DC 04/24/21 21:22 1 EACH Methocarbamol (Robaxin) 750 mg STAT STAT PO 04/24/21 21:14 04/24/21 21:17 DC 04/24/21 21:22 750 MG Progress Progress Patient CT scan does not show acute injury however patient does have 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 I spoke with the patient's daughter who states that she is unable to care for the patient at home. She states that she is 7-1/2 months and cannot lift the patient. She states the patient has basically been living on the sofa for the past 3 to 4 days and anytime she needs to be moved the daughter is having to call 911 in order to assist her. Patient is having difficulty walking due to her knee that spontaneously will give out. The knee issue is chronic. I have contacted Dr. Da Silva, our hospitalist, who has agreed to admit the patient and attempt placement in a [facility] or rehab facility. Of note the patient told us that she has been out of her home pain medications which is [place] for approximately a week I spoke to the daughter the daughter claims that the patient is not out of her medications and that she actually had them right before she left home. The patient continues to adamantly states she has been out of her pain medications. ER DEPART Departure Time of Disposition: 23:27 Disposition: ADMITTED INPATIENT Impression: Primary Impression: Back pain Additional Impression: Inability to perform activities of daily living Condition: Stable Referrals: PCP,UNKNOWN (PCP) PRIMARY CARE PROVIDER Duration or Time Spent with Pa: 14 min Problem Qualifiers JOSE MANUEL KELLEY MD Apr 24, 2021 21:22
[2021-04-24] MEDS ORDERED: ROCEPHIN ONE (21:37)
[2021-04-24] MEDS ORDERED: NS 100ML 100 ML IV ONE (21:37)
--- NOTE | 2021-04-24 21:58 | DIREP ---
PROCEDURE: CT SPINE LUMBAR W/O TECHNIQUE:Axial cuts were obtained through the lumbar spine. The images were viewed at bone settings. COMPARISON:None. INDICATIONS:fall/pain FINDINGS: ALIGNMENT:Mild curvature apex to the left. 7 mm anterolisthesis of L4 on L5. This appears to be on a degenerative basis VERTEBRAE:History acute fracture is not identified. PARASPINAL AREA:Normal. OTHER:No additional findings. LUMBAR DISC LEVELS T12-L1:The disc degenerative change with mild vacuum phenomenon L1-L2:Small amounts of disc height loss. Facet sclerosis and hypertrophy. L2-L3:Minimal broad-based disc bulge. Central canal stenosis is not identified. Facet sclerosis and hypertrophy with right neural foraminal stenosis. L3-L4:Laminectomy. Disc protrusion without central canal stenosis. Facet sclerosis and hypertrophy resulting in right neural foraminal stenosis L4-L5:Anterolisthesis of L4 on L5, laminectomy changes. Uncovered disc material. There is severe facet sclerosis and hypertrophy. There is moderate right and severe left neural foraminal stenosis L5-S1:Facet sclerosis and hypertrophy, with disc and osteophyte resulting in mild left neural foraminal stenosis CONCLUSION:Acute fracture is not identified. Multilevel disc degenerative change, surgical changes. No central canal stenosis. Neural foraminal narrowing as above. Dictated by: Trell Hardy MD on 04/24/2021 at 09:52 PM
[2021-04-24] MEDS ORDERED: NORCO 7.5MG PO PRN (23:30)
--- NOTE | 2021-04-24 23:40 | NUR ---
ACCEPTED FOR INPT DR. KELLEY SPOKE WITH DR. SHAFFER, HOSPITALIST, WHO ACCEPTED FOR INPT STAY.
--- NOTE | 2021-04-24 23:45 | NUR ---
M/S BED ASSIGNED SPOKE WITH BLAINE CANVAS SHRINKER NURSE FOR BED ASSIGNMENT FOR INPT STAY. #[id number] ASSIGNED.
[2021-04-25 00:25] VITALS: BP 146/69
[2021-04-25 00:36] LABS: BASOPHIL # 0.1 10^3/uL (0.0-0.1); BASOPHIL % 0.5 % (0.0-0.2); EOSINOPHIL # 0.6 10^3/uL (0.0-0.2); EOSINOPHIL % 6.3 % (0.0-5.0); LYMPHOCYTES # 1.87 10^3/uL1 (1.0-4.8); LYMPHOCYTES % 19.9 % (24.0-44.0); MONOCYTES # 1.3 10^3/uL (0.3-0.8); MONOCYTES % 13.6 % (5.0-12.0); NEUTROPHIL # 5.6 10^3/uL (1.8-7.7); NEUTROPHILS % 59.7 % (41.0-85.0); PLATELET COUNT 266 10^3/uL (150-400); RED CELL DISTRIBUTION WIDTH 16.4 % (11.5-14.5)
[2021-04-25 01:52] LABS: CALCIUM 8.7 mg/dL (8.4-10.5)
--- NOTE | 2021-04-25 07:14 | PCM.HP ---
HISTORY & PHYSICAL HISTORY & PHYSICAL DATE OF ADMISSION: 04/25/2021 SUMMARY:This is a 75 years old female who was recently admitted int [facility] then was discharged to a detention. she then went back home and sustained a GLF resulting in worsening on her chronic low back pain. imaging showed no lumbar fracture. Marion is 7 months and is unable to take care of her and wants detention placement 1. Acute on chronic low back pain daughter wants [place] placement JORY POWELL MD Apr 25, 2021 07:14
[2021-04-25 08:54] VITALS: BP 134/83
[2021-04-25] MEDS ORDERED: TYLENOL PO STA (09:01)
--- NOTE | 2021-04-25 11:19 | PCM.HP ---
History of Present Illness Reason for Visit: (1) Inability to perform activities of daily living ICD Code: Z78.9 - Other specified health status SNOMED: 808892612 Hx of Present Illness Ms. Walton is a 75-year-old female who recently moved to [place] to be with her family, notably her daughter. The patient has had difficulty ambulating since the knee surgery several years ago and subsequent infection, an d has suffered frequent falls many which of brought her to our emergency department. Per the family who brought her in, they cannot take care of her and want her to be placed in a fpc Fidel patient states that she wants to go to a rehabilitation facility believing that further physical therapy will allow her to safely ambulate. After speaking with her it becomes obvious that she has no other complaints, the placement is her chief issue, and as a consequence after conversation with both the patient and with social work we have decided on discharge home with home health physical therapy while the patient's family works to secure [place] Medicaid after her move from [place]. Review of Systems Constitutional: No: Fever, Chills, Sweats, Weakness, Malaise, Other Eyes: No: Pain, Vision change, Conjunctivae inflammation, Eyelid inflammation, Other, Redness ENT: No: Ear pain, Ear discharge, Nose pain, Nose discharge, Nose congestion, Mouth pain, Mouth swelling, Throat pain, Throat swelling, Other Gastrointestinal: No: Nausea, Vomiting, Abdominal Pain, Diarrhea, Constipation, Melena, Hematochezia, Other Musculoskeletal: leg pain; No: neck pain, shoulder pain, arm pain, back pain, hand pain, foot pain Skin: No: Rash, Lesions, Jaundice, Bruising, Other Neurological: No: Weakness, Numbness, Incoordination, Change in speech, Confusion, Seizures, Other Allergies: Coded Allergies: sulfamethoxazole (Verified Allergy, Intermediate, 03/24/21) trimethoprim (Verified Allergy, Intermediate, 03/24/21) Penicillins (Verified Allergy, Unknown, Rash, 03/23/21) fentanyl (Verified Allergy, Unknown, 03/23/21) hydromorphone (Verified Allergy, Unknown, 03/23/21) Scheduled Albuterol Sulfate (Proair Respiclick), 90 MCG IH Q4, (Reported) Amiodarone HCl (Amiodarone HCl), 2 TAB PO QD, (Reported) Budesonide/Formoterol Fumarate (Symbicort 160-4.5 Mcg Inhaler), 2 PUFF IH DAILY24, (Reported) Buspirone Hcl (Buspirone Hcl), 1 TAB PO TID, (Reported) Cefdinir (Cefdinir), 1 CAP PO BID, (Reported) Doxycycline Hyclate (Doxycycline Hyclate), 1 CAP PO BID, (Reported) Fluticasone Propionate (Fluticasone Propionate), 1 SPR NA DAILY, (Reported) Gabapentin (Neurontin), 1 CAP PO TID, (Reported) Montelukast Sodium (Montelukast Sodium), 1 TAB PO DAILY, (Reported) Pantoprazole Sodium (Pantoprazole Sodium), 20 MG PO DAILY24, (Reported) Rivaroxaban (Xarelto), 1 TAB PO DAILY24, (Reported) Vilazodone Hydrochloride (Viibryd), 1 TAB PO DAILY, (Reported) Scheduled PRN Diclofenac Sodium (Diclofenac Sodium), 100 GM TP Q6HR PRN for PAIN 1 - 3, (Reported) VTE VTE Risk Total Score: >5 VTE Risk Score VTE Risk: Score 0-1 = Low Risk (Aggressive mobilization; early ambulation; no VTE prophylaxis required) Score 2: Moderate Risk (Intermittent/Pneumatic Compression Device OR Lovenox/Heparin/Coumadin) Score 3-4: High Risk (Intermittent/Pneumatic Compression Device AND Lovenox/Heparin/Coumadin) Score > or =5: Highest Risk (Intermittent/Pneumatic Compression Device AND Lovenox/Heparin/Coumadin) Antico:Hep/LMWH/Coum/Xarelto: Yes Mechanical device ordered: No VTE VTE Present on Admission: No Currently receiving anticoagul: Yes VTE Risk Total Score: >5 Antico:Hep/LMWH/Coum/Xarelto: Yes Mechanical device ordered: No Protocol for Platelet Monitori: Following Clinical Path Exam Vital Signs Vital Signs Date Time Temp Pulse Resp B/P (MAP) Pulse Ox O2 Delivery O2 Flow Rate FiO2 04/25/21 10:54 85 17 97 Room Air 04/25/21 08:54 98.2 134/83 (100) General Appearance: Alert, Oriented X3, Cooperative HEENT: Atraumatic, PERRLA, EOMI Respiratory: Clear to auscultation, Normal air movement Cardiovascular: Regular rate, Normal S1, Normal S2 Abdominal: Normal bowel sounds, Soft, No tenderness Extremities: No clubbing, No cyanosis Skin: No rash, No breakdown Neuro: Normal gait, Normal speech, Strength at 5/5 X4 ext Psych/Mental Status: Mental status NL, Mood NL Assessment/Plan Assessment/Plan Problems: (1) COPD (chronic obstructive pulmonary disease) Status: Chronic Assessment & Plan: Patient requires chronic nebulizers, however she has no acute exacerbation and continue to safely manage this at home ICD Code: J44.9 - Chronic obstructive pulmonary disease, unspecified SNOMED: 13737022 (2) Atrial fibrillation Status: Chronic Assessment & Plan: Controlled on amiodarone with Xarelto prophylaxis ICD Code: I48.91 - Unspecified atrial fibrillation SNOMED: 73430004 (3) CAD (coronary artery disease) Status: Chronic Assessment & Plan: Secondary prophylaxis on aspirin statin upon discharge ICD Code: I25.10 - Atherosclerotic heart disease of [place] coronary artery without angina pectoris SNOMED: 56701842 (4) Morbid obesity with BMI of 40.0-44.9, adult Status: Chronic Assessment & Plan: Major contributor to the patient patient's debility, she would benefit from weight loss, however given her limited ability to ambulate this may be challenging ICD Code: E66.01 - Morbid (severe) obesity due to excess calories; Z68.41 - Body mass index [BMI] 40.0-44.9, adult SNOMED: 991789082, [id number], [id number] (5) Inability to perform activities of daily living Status: Acute Assessment & Plan: The true reason for the patient's admission, patient and family have slightly differing ideas on the ideal location of care with the patient preferring rehab placement when the family stating that they are not able to take care of her. Given the patient's lack of [place] Medicaid, as well as her use of all of her skilled days her only option right now is to return home with family while working to set up nursing care if she is agreeable to it.In the interim, case management will provide PT via home health. ICD Code: Z78.9 - Other specified health status SNOMED: [id number] Patient History: Asthma G8 MOTHER Chronic obstructive pulmonary disease G8 MOTHER FH: alcoholism G8 MOTHER No known health problems G8 FATHER 19 CHILD 19 CHILD 19 CHILD 19 CHILD 19 CHILD LAMAR SIMPSON MD Apr 25, 2021 11:18
[2021-04-25] MEDS ORDERED: PRAV20TA2 PO (11:21)
[2021-04-25] MEDS ORDERED: ASPI-667 PO (11:21)
--- NOTE | 2021-04-25 11:24 | PRM.DC ---
Discharge Summary Date of Discharge: Apr 25, 2021 Time of Request to Discharge: 14:30 Reason for Visit: Family care problem Hospital Course Ms. Walton is a pleasant 75-year-old female who presents from home based upon family complaints that she is too much for them to care for as well as her frequent falls. After discussion with family patient as well as case management, the current options include discharge home with plan for [facility] in a penitentiary once her [place] Medicaid is transition to [place]. The patient does not have any skilled days so at present discharge to rehab facility is not an option, but we can provide home health physical therapy which has been done. As she has no acute medicalComplaints, the only changes made to her medications were to add aspirin and statin for secondary prophylaxis against CAD. Patient History: Asthma G8 MOTHER Chronic obstructive pulmonary disease G8 MOTHER FH: alcoholism G8 MOTHER No known health problems G8 FATHER 19 CHILD 19 CHILD 19 CHILD 19 CHILD 19 CHILD General: Alert, Oriented X3, Cooperative, No acute distress HEENT: Atraumatic, PERRLA, EOMI, Mucous membr. moist/pink Neck: Supple, No JVD, No thyromegaly Lungs: Clear to auscultation, Normal air movement Heart: Normal S1, Normal S2 Abdomen: Normal bowel sounds, Soft, No tenderness Extremities: No clubbing, No cyanosis, No edema Skin: No breakdown, No significant lesion Neuro: Normal gait, Normal speech, Strength at 5/5 X4 ext Psych/Mental Status: Mental status NL, Mood NL Scheduled Albuterol Sulfate (Proair Respiclick), 90 MCG IH Q4, (Reported) Amiodarone HCl (Amiodarone HCl), 2 TAB PO QD, (Reported) Aspirin (Aspirin), 81 MG PO DAILY24 Budesonide/Formoterol Fumarate (Symbicort 160-4.5 Mcg Inhaler), 2 PUFF IH DAILY24, (Reported) Buspirone Hcl (Buspirone Hcl), 1 TAB PO TID, (Reported) Cefdinir (Cefdinir), 1 CAP PO BID, (Reported) Doxycycline Hyclate (Doxycycline Hyclate), 1 CAP PO BID, (Reported) Fluticasone Propionate (Fluticasone Propionate), 1 SPR NA DAILY, (Reported) Gabapentin (Neurontin), 1 CAP PO TID, (Reported) Montelukast Sodium (Montelukast Sodium), 1 TAB PO DAILY, (Reported) Pantoprazole Sodium (Pantoprazole Sodium), 20 MG PO DAILY24, (Reported) Pravastatin Sodium (Pravastatin Sodium), 1 TAB PO DAILY Rivaroxaban (Xarelto), 1 TAB PO DAILY24, (Reported) Vilazodone Hydrochloride (Viibryd), 1 TAB PO DAILY, (Reported) Scheduled PRN Diclofenac Sodium (Diclofenac Sodium), 100 GM TP Q6HR PRN for PAIN 1 - 3, (Reported) Sepsis Evaluation @ Discharge 03/29/21 07:36 Course Sepsis Qualifier/Stage: SEPSIS RISK Duration or Total Time Spent w: 14 min Vitals & review Data Vital Sign - Last 24 Hours 04/24/21 04/24/21 04/24/21 04/25/21 20:44 20:44 20:44 00:25 Temp 98.3 98.3 98.3 98.3 Pulse 91 91 91 90 Resp 18 18 18 18 B/P (MAP) 129/88 (102) 146/69 (94) Pulse Ox 95 95 94 O2 Delivery Room Air Room Air 04/25/21 04/25/21 04/25/21 04/25/21 04:37 04:41 04:50 08:54 Temp 98.2 Pulse 90 85 Resp 18 17 B/P (MAP) 134/83 (100) Pulse Ox 94 97 O2 Delivery Nasal Cannula Nasal Cannula Nasal Cannula O2 Flow Rate 3.00 3.00 FiO2 32 04/25/21 04/25/21 10:53 10:54 Pulse 85 Resp 17 17 Pulse Ox 97 97 O2 Delivery Room Air Intake and Output 04/25/21 07:00 Intake Total 120 ml Balance 120 ml Laboratory Tests Test 04/25/21 00:30 04/25/21 00:35 White Blood Count 9.4 10^3/uL Red Blood Count 3.64 10^6/uL Hemoglobin 11.3 g/dL Hematocrit 34.9 % Mean Corpuscular Volume 95.9 fL Mean Corpuscular Hemoglobin 31.0 pg Mean Corpuscular Hemoglobin Concent 32.4 g/dL Red Cell Distribution Width 16.4 % Platelet Count 266 10^3/uL Mean Platelet Volume 9.8 fL Neutrophils (%) (Auto) 59.7 % Lymphocytes (%) (Auto) 19.9 % Monocytes (%) (Auto) 13.6 % Neutrophils # (Auto) 5.6 10^3/uL Lymphocytes # (Auto) 1.87 10^3/uL1 Monocytes # (Auto) 1.3 10^3/uL Absolute Immature Granulocyte (auto 0.02 10^3 u/L Absolute Eosinophils (auto) 0.6 10^3/uL Immature Granulocytes % 0.20 % Eosinophils % 6.3 % Basophils % 0.5 % Basophils # 0.1 10^3/uL Sodium Level 144 mmol/L Potassium Level 3.4 mmol/L Chloride Level 107.0 mmol/L Carbon Dioxide Level 23.0 mmol/L Glucose Level 101 mg/dL Blood Urea Nitrogen 16 mg/dL Creatinine 1.06 mg/dL Calcium Level 8.7 mg/dL Anion Gap 17.4 Estimated GFR () 61.1 Est GFR (CKD-EPI)(Non-Afr Faroese) 50.5 BUN/Creatinine Ratio 15.0 SARS-CoV-2 Antigen (Rapid) NEGATIVE LEVEL 1 SEPSIS INFECTION CRITE: ABX Therapy LEVEL 2-SIRS (LIST ALL THAT AP: None/Not assessed Cardiovascular Evidence: Not Assessed or None Hematologic Evidence: None/Not assessed Hepatic Evidence: None/Not assessed Metabolic Evidence: None/Not assessed Neurological Evidence: None/Not assessed Respiratory Evidence: Need for O2 to keep>90%, O2 SAT<90room air Renal Evidence: None/Not assessed O2 Sat by Pulse Oximetry: 97 Oxygen Flow Rate: 3.00 LAMAR SIMPSON MD Apr 25, 2021 11:24
[2021-04-25] MEDS ORDERED: PROTONIX PO SCH (11:30)
[2021-04-25] MEDS ORDERED: ASPIRIN PO SCH (11:30)
--- NOTE | 2021-04-25 11:31 | NUR ---
DISCHARGE PLAN CM/SS VISITED WITH PT'S DAUGHTER ALEJANDRA VALENTINO REGARDING DISCHARGE PLAN AND NEED. PT RECENTLY MOVED HER WITH HER AND THEY ARE TRYING TO PLACE HER IN A PRISON RESIDENCE. PER [facility], [facility], AND [facility] WE ALL NOTIFIED PATIENTS DAUGHTER SHE WILL HAVE TO CANCEL [place] MEDICAID AND UPDATE PATIENTS ADDRESS TO [place] IN ORDER TO MOVE INTO A [facility] FACILITY. CM NOTIFIED DAUGHTER PATIENT WILL BE DISCHARGED HOME TODAY. DAUGHTER AGREEABLE WITH PLAN. PATIENT WILL D/C BACK HOME WITH HER DAUGHTER AND [facility] WILL FOLLOW. Addendum: 04/25/21 at 1432 by Sisi Daniel RN,Case Manageadela GOMEZ FAXED DISCHARGE SUMMARY AND DC ASSESSMENT TO [phone] FOR RESUMPTION OF [email or web address] AWARE OF DISCHARGE TODAY. Addendum: 04/26/21 at 0802 by Sisi Daniel RN,Case Manageadela RN CM CONTACTED [email or web address] AND INFORMED THAT PATIENT WAS ON [facility] FOR PYROGENIC ARTHRITIS.
[2021-04-25 11:58] LABS: BASOPHIL % 0.6 % (0.0-0.2); EOSINOPHIL # 0.5 10^3/uL (0.0-0.2); EOSINOPHIL % 7.7 % (0.0-5.0); LYMPHOCYTES # 1.41 10^3/uL1 (1.0-4.8); LYMPHOCYTES % 20.6 % (24.0-44.0); MEAN CORP HGB 30.3 pg (26-34); MONOCYTES # 0.8 10^3/uL (0.3-0.8); NEUTROPHIL # 4.1 10^3/uL (1.8-7.7); RED CELL DISTRIBUTION WIDTH 16.2 % (11.5-14.5)
[2021-04-25 12:11] LABS: CALCIUM 8.9 mg/dL (8.4-10.5); CARBON DIOXIDE 24.3 mmol/L (20.0-32)
[2021-04-25 12:30] VITALS: BP 139/76
[2021-04-25] MEDS ORDERED: BROVANA IH SCH (13:30)
[2021-04-25] MEDS ORDERED: PULMICORT IH SCH (13:30)
[2021-04-25] MEDS ORDERED: BUSPAR PO SCH (15:00)
[2021-04-25] MEDS ORDERED: NEURONTIN PO SCH (15:00)
[2021-04-25] MEDS ORDERED: SINGULAIR PO SCH (21:00)
[2021-04-25] MEDS ORDERED: OMNICEF PO SCH (21:00)
[2021-04-26] MEDS ORDERED: FLONASE NS SCH (09:00)
== END 2021-04-25 15:41 | disposition home or self-care (01) ==
LOC: EDBD 20:44 → ER 20:44 → INTOOBSV 23:47 → UNDOADMOB 23:47 → MS 23:47 → UNDODISOB 04-25 15:41
PROVIDERS: ADMIT Family Medicine; ATTEND Family Medicine
DX: G89.29 Other chronic pain (principal); M54.50 Low back pain, unspecified; Z20.822 Contact with and (suspected) exposure to COVID-19; J44.9 Chronic obstructive pulmonary disease, unspecified; I48.91 Unspecified atrial fibrillation; I25.10 Atherosclerotic heart disease of native coronary artery without angina pectoris; J84.10 Pulmonary fibrosis, unspecified; E66.01 Morbid (severe) obesity due to excess calories; R29.6 Repeated falls; W10.9XXA Fall (on) (from) unspecified stairs and steps, initial encounter; Y93.89 Activity, other specified; Y92.89 Other specified places as the place of occurrence of the external cause; Z68.41 Body mass index [BMI] 40.0-44.9, adult; Z78.9 Other specified health status; Z88.0 Allergy status to penicillin; Z79.899 Other long term (current) drug therapy; Z79.51 Long term (current) use of inhaled steroids; Z96.653 Presence of artificial knee joint, bilateral
CPT/HCPCS: 36415; 72131; 80048; 85025; 87426; 94640; 99284; G0378 ×2; J0696; J3490; J7605; J7627; 99285

== ENCOUNTER 2021-07-06 11:07 | Emergency (ER) | payer MEDICARE ==
[2021-07-06 11:07] VITALS: BP 128/84
[~2021-07-06 11:07] MED LIST changes: +ASPI-667 PO; +PRAV20TA2 PO
--- NOTE | 2021-07-06 11:16 | ER.PDOC ---
General Chief Complaint: Requesting Medical Care Stated Complaint: DYSPNEA Time seen by MD: 11:04 History of Present Illness Initial Comments This is a 75-year-old female who comes to the emergency department who states she is not feeling good. She has left and right leg swelling and a "hole in my left knee". She does not know of any injury that she that occurred but she noticed it yesterday. Additionally she has a bruise on her left foot. She has been having some nausea and vomiting but no diarrhea. She has not been taking her diuretic because she has been out for some time and does not have a primary doctor here as she recently moved from [place] to here. She has a history of CHF, chronic renal failure, COPD, asthma, pulmonary fibrosis and atrial fibrillation. Allergies: Coded Allergies: sulfamethoxazole (Verified Allergy, Intermediate, 03/24/21) trimethoprim (Verified Allergy, Intermediate, 03/24/21) Penicillins (Verified Allergy, Unknown, Rash, 03/23/21) fentanyl (Verified Allergy, Unknown, 03/23/21) hydromorphone (Verified Allergy, Unknown, 03/23/21) Home Meds Active Scripts Pravastatin Sodium (PRAVASTATIN SODIUM) 20 Mg Tablet, 1 TAB PO DAILY, #30 TAB 5 Refills Prov:LAMAR SIMPSON MD 04/25/21 Aspirin (ASPIRIN) 81 Mg Tab.chew, 81 MG PO DAILY24 for 30 Days, #30 TAB.CHEW 2 Refills Prov:LAMAR SIMPSON MD 04/25/21 Reported Medications Pantoprazole Sodium (PANTOPRAZOLE SODIUM) 40 Mg Tablet.dr, 20 MG PO DAILY24 03/26/21 Montelukast Sodium (MONTELUKAST SODIUM) 10 Mg Tablet, 1 TAB PO DAILY, #30 TAB 5 Refills 03/26/21 Gabapentin (NEURONTIN) 300 Mg Capsule, 1 CAP PO TID, #90 CAP 3 Refills 03/26/21 Fluticasone Propionate (FLUTICASONE PROPIONATE) 16 Gm [place].susp, 1 SPR NA DAILY, #1 INHALER 11 Refills use one spray in each nostiril once daily 03/26/21 Buspirone Hcl (BUSPIRONE HCL) 10 Mg Tablet, 1 TAB PO TID, #60 TAB 1 Refill TID at 0800,1400,2100 03/26/21 Budesonide/Formoterol Fumarate (SYMBICORT 160-4.5 MCG INHALER) 10.2 Gm Hfa.aer. ad, 2 PUFF IH DAILY24, #10.6 GRAM 3 Refills 03/26/21 Amiodarone HCl (Amiodarone HCl) 100 Mg Tablet, 2 TAB PO QD for 30 Days, #30 TAB 0 Refills 03/26/21 Albuterol Sulfate (Proair Respiclick) 90 Mcg Aer.pow.ba, 90 MCG IH Q4, PKG PRN 03/26/21 Diclofenac Sodium (Diclofenac Sodium) 1 % Gel..gram., 100 GM TP Q6HR PRN for BRAN N 1 - 3, #1 TUBE APPLY 2GM TOPICALLY TO KNEES EVERY 6 HOURS NEEDED FOR PAIN 03/26/21 Doxycycline Hyclate (DOXYCYCLINE HYCLATE) 100 Mg Capsule, 1 CAP PO BID for septic arthritis for 34 Days, #68 CAP 03/26/21 Cefdinir (CEFDINIR) 300 Mg Capsule, 1 CAP PO BID for 34 Days, #68 CAP 0 Refills 03/26/21 Vilazodone Hydrochloride (VIIBRYD) 40 Mg Tablet, 1 TAB PO DAILY for depression, #30 TAB 0 Refills 03/26/21 Rivaroxaban (XARELTO) 20 Mg Tablet, 1 TAB PO DAILY24 for prevent clots for 30 Days, #30 TAB 0 Refills with food 03/26/21 Past Medical History Medical History: other Surgical History: other Social History Drug Use: none Review of Systems Constitutional: denies no symptoms reported, denies see HPI, denies chills, denies diaphoresis, denies fever, denies malaise, denies weakness, denies other EENTM: denies no symptoms reported, denies see HPI, denies eye pain, denies blurred vision, denies tearing, denies double vision, denies ear pain, denies ear discharge, denies nose pain, denies nose congestion, denies throat pain, denies throat swelling, denies mouth pain, denies mouth swelling, denies other Respiratory: denies no symptoms reported, denies see HPI, denies cough, denies orthopnea, denies shortness of breath, denies stridor, denies wheezing, denies other Cardiovascular: denies no symptoms reported, denies see HPI, denies chest pain, denies edema, denies palpitations, denies syncope, denies other Gastrointestinal: denies no symptoms reported, denies see HPI, denies abdominal pain, denies constipation, denies diarrhea, denies nausea, denies vomiting, denies other Genitourinary: denies no symptoms reported, denies see HPI, denies discharge, denies dysuria, denies frequency, denies hematuria, denies pain, denies other Musculoskeletal: denies no symptoms reported, denies see HPI, denies back pain, denies gout, denies joint pain, denies joint swelling, denies muscle pain, denies muscle stiffness, denies neck pain, denies other Skin: denies no symptoms reported, denies see HPI, denies change in color, denies change in hair/nails, denies dryness, denies lesions, denies lumps, denies rash, denies other Psychiatric/Neurological: denies no symptoms reported, denies see HPI, denies anxiety, denies depressed, denies emotional problems, denies headache, denies numbness, denies paresthesia, denies pre-existing deficit, denies seizure, denies tingling, denies tremors, denies weakness, denies other Endocrine: denies no symptoms reported, denies see HPI, denies excessive sweating, denies flushing, denies intolerance to cold, denies intolerance to heat, denies increased hunger, denies increased thrist, denies increased urine, denies unexplained weight gain, denies unexplaned weight loss, denies other Hematologic/Lymphatic: denies no symptoms reported, denies see HPI, denies anemia, denies blood clots, denies easy bleeding, denies easy bruising, denies swollen glands, denies other All Other Systems: Reviewed and Negative Physical Exam General Appearance: No Apparent Distress, WD/WN HEENT: PERRL/EOMI, Normal ENT Inspection, TMs Normal, Pharynx Normal Neck: Non-Tender, Full Range of Motion, Supple, Normal Inspection Respiratory: chest non-tender, no respiratory distress, no accessory muscle use, other (Decreased breath sounds in the bases bilaterally. Crackles noted throughout.) Cardiovascular: Normal Peripheral Pulses, Regular Rate, Rhythm, No Edema, No Gallop, No JVD, No Murmur Gastrointestinal: Normal Bowel Sounds, No Organomegaly, No Pulsatile Mass, Non Tender, Soft Rectal: Normal Exam Extremities: Normal Range of Motion, No Calf Tenderness, Normal Capillary Refill, Other (The patient has edema bilaterally, the left knee has a superficial abrasion that seems to be healing, and a bruise over her left foot on the dorsum. 2+ edema bilaterally.) Neurologic/Psychiatric: forensic toxicologist II-XII NML as Tested, No Motor/Sensory Deficits, Alert, Normal Mood/Affect, Oriented x 3 Skin: Normal Color, Warm/Dry Lymphatic: No Adenopathy Results/Orders Results/Orders Orders - WILLIAM CR MD Cbc With Auto Diff (07/06/21 11:10) Comprehensive Metabolic Panel (07/06/21 11:10) Probnp B-Type Branch Service Representative (07/06/21 11:10) PT (07/06/21 11:10) Partial Thromboplastin Time. (07/06/21 11:10) Xr Chest 1v (07/06/21 11:10) Ekg-Routine (07/06/21 11:10) Troponin I High Sensitivity (07/06/21 11:10) Vital Signs Date Time Temp Pulse Resp B/P (MAP) Pulse Ox O2 Delivery O2 Flow Rate FiO2 07/06/21 11:07 98.7 70 20 92 07/06/21 11:07 98.7 72 18 128/84 (99) 92 Room Air 07/06/21 11:07 98.7 72 18 Laboratory Tests Test 07/06/21 11:20 White Blood Count 5.7 10^3/uL (4.5-11.0) Red Blood Count 3.70 10^6/uL (4.00-5.20) L Hemoglobin 11.3 g/dL (12.0-15.0) L Hematocrit 36.7 % (36.0-46.0) Mean Corpuscular Volume 99.2 fL (78-100) Mean Corpuscular Hemoglobin 30.5 pg (26-34) Mean Corpuscular Hemoglobin Concent 30.8 g/dL (33-36.5) L Red Cell Distribution Width 15.2 % (11.5-14.5) H Platelet Count 333 10^3/uL (150-400) Mean Platelet Volume 9.7 fL (7.8-11.0) Neutrophils (%) (Auto) 66.4 % (41.0-85.0) Lymphocytes (%) (Auto) 19.9 % (24.0-44.0) L Monocytes (%) (Auto) 10.2 % (5.0-12.0) Neutrophils # (Auto) 3.8 10^3/uL (1.8-7.7) Lymphocytes # (Auto) 1.13 10^3/uL1 (1.0-4.8) Monocytes # (Auto) 0.6 10^3/uL (0.3-0.8) Absolute Immature Granulocyte (auto 0 10^3 u/L (0-2) Absolute Eosinophils (auto) 0.2 10^3/uL (0.0-0.2) Immature Granulocytes % 0.00 % (0.00-0.50) Eosinophils % 2.8 % (0.0-5.0) Basophils % 0.7 % (0.0-0.2) H Basophils # 0.0 10^3/uL (0.0-0.1) Prothrombin Time 11.9 SEC (9.6-12.0) Prothrombin Time INR (Non-Therap) 1.1 Activated Partial Thromboplast Time 30.3 SEC (24.67-30.72) Sodium Level 141 mmol/L (132-145) Potassium Level 3.9 mmol/L (3.6-5.2) Chloride Level 106.0 mmol/L (96-109) Carbon Dioxide Level 28.1 mmol/L (20.0-32) Anion Gap 10.8 Blood Urea Nitrogen 13 mg/dL (7-18) Creatinine 1.09 mg/dL (0.59-1.40) Estimated GFR () 59.2 (>/=60) Est GFR (CKD-EPI)(Non-Afr Algerian) 48.9 (>/=60) BUN/Creatinine Ratio 11.0 Glucose Level 99 mg/dL (70-110) Calcium Level 8.5 mg/dL (8.4-10.5) Total Bilirubin 0.4 mg/dL (0.2-1.0) Aspartate Amino Transferase (AST) 25 U/L (0-35) Alanine Aminotransferase (ALT) 23 U/L (12-78) Alkaline Phosphatase 96 U/L (50-136) Troponin I High Sensitivity 60 ng/L (0-50) *H Pro-B-Type Natriuretic Peptide 1262 pg/mL (0-450) H Total Protein 6.5 g/dL (6.4-8.2) Albumin 2.7 g/dL (3.4-5.0) L Globulin 3.8 Albumin/Globulin Ratio 0.710 Progress Progress FINDINGS: LUNGS/PLEURA:Mild chronic interstitial changes. No acute infiltrate or pleural effusion. CARDIAC:Normal cardiac silhouette and normal pulmonary vascularity. MEDIASTINUM:Normal BONES:Bilateral shoulder arthrosis. OTHER:No additional findings. CONCLUSION:No acute cardiopulmonary process. Dictated by: Serene Taylor MD on 07/06/2021 at 11:58 AM Elevated BNP at 1200 but not terribly high, the patient will be placed on Bumex as she stated that prior use of Lasix was not working. She was placed on Bumex but then she recently moved and cannot find her prescriptions. This will only be a short course and she will need to follow-up with her primary doctor for further medications. EKG/XRAY/CT/US EKG: NSR ER DEPART Departure Time of Disposition: 12:19 Disposition: HOME / SELF CARE / HOMELESS Impression: Primary Impression: CHF (congestive heart failure) Condition: Stable Patient Instructions: Heart Failure Referrals: PCP,UNKNOWN (PCP) PRIMARY CARE PROVIDER Additional Instructions: Follow-up with your primary doctor, I gave you a limited supply of diuretics but will need to be followed up with a primary doctor.Take Bumex daily, and potassium chloride daily. Duration or Time Spent with Pa: Unknown Problem Qualifiers Primary Impression: CHF (congestive heart failure) Heart failure chronicity: acute WILLIAM CR MD Jul 06, 2021 11:16
[2021-07-06 11:34] LABS: BASOPHIL % 0.7 % (0.0-0.2); EOSINOPHIL # 0.2 10^3/uL (0.0-0.2); EOSINOPHIL % 2.8 % (0.0-5.0); LYMPHOCYTES # 1.13 10^3/uL1 (1.0-4.8); LYMPHOCYTES % 19.9 % (24.0-44.0); MEAN CORP HGB 30.5 pg (26-34); MONOCYTES # 0.6 10^3/uL (0.3-0.8); MONOCYTES % 10.2 % (5.0-12.0); NEUTROPHIL # 3.8 10^3/uL (1.8-7.7); NEUTROPHILS % 66.4 % (41.0-85.0); PLATELET COUNT 333 10^3/uL (150-400); RED CELL DISTRIBUTION WIDTH 15.2 % (11.5-14.5)
--- NOTE | 2021-07-06 11:40 | PCM.EKG ---
[facility] Test Date: 2021-07-06 Test Time: 11:29:10 Pat Name: ALEJANDRA CHISHOLM Department: Room: Gender: F Liner Checker: : 1945 Requested By: WILLIAM HUBER Order Number: [id number] Reading MD: William Huebr Measurements Intervals [place] Rate: 76 P: 0 MS: 68 QRS: 43 QRSD: 122 T: 39 QT: 445 QTc: 501 Interpretive Statements Sinus rhythm Short MS interval Nonspecific intraventricular conduction delay Artifact in lead(s) I,II,aVR,aVL Compared to ECG 03/23/2021 22:12:44 Short MS interval now present Intraventricular conduction delay now present Electronically Signed On 07-06-2021 23:12:23 ROUTER SETTER by William Huber Please click the below link to view image of tracing.
[2021-07-06 11:48] LABS: CARBON DIOXIDE 28.1 mmol/L (20.0-32)
--- NOTE | 2021-07-06 11:51 | NUR ---
CRITICAL LAB TROPONIN REPORTED BY LAB AT 60. DR. CR NOTIFIED, VERBALIZED UNDERSTANDING.
--- NOTE | 2021-07-06 12:02 | DIREP ---
PROCEDURE:CHEST 1 VIEW COMPARISON:[facility], CR, XRAY CHEST SINGLE VW, 03/23/2021, 08:31 PM. INDICATIONS:dyspnea FINDINGS: LUNGS/PLEURA:Mild chronic interstitial changes. No acute infiltrate or pleural effusion. CARDIAC:Normal cardiac silhouette and normal pulmonary vascularity. MEDIASTINUM:Normal BONES:Bilateral shoulder arthrosis. OTHER:No additional findings. CONCLUSION:No acute cardiopulmonary process. Dictated by: Serene Taylor MD on 07/06/2021 at 11:58 AM
--- NOTE | 2021-07-06 14:04 | NUR ---
STATUS PT DAUGHTER HAS CALLED TO TALK TO DR AFTER SHE SPOKE TO PT ON THE PHONE. SHE IS WANTING THE DR TO KNOW THAT PT IS UNABLE TO WALK AT HOME AND THAT THEY HAVE NO WAY OF GETTING HER INSIDE THE HOUSE. PT STATES SHE CRAWLED UP 4 STAIRS TO GET TO THE BATHROOM WITH ASSISTANCE FROM FAMILY. THE SANDEEP HAS CALLED THE C TO SEE WHAT IS REQUIRED FOR PLACEMENT. THIS PT WAS BROUGHT FROM HER HOME LAST WEEK TO LIVE WITH FAMILY. DAUGHTER STATES SHE IS NOT TELLING THE DR EVERYTHING THAT IS GOING ON AND FORGOT TO TELL HIM SHE ISNT ABLE TO WALK. CALLED ROXANNE CERTIFIED REHABILITATION COUNSELOR TO [facility]. PT DAUGHTER STATES SHE IS NOT ABLE TO COME TO THE HOSPITAL FOR ANOTHER HOUR OR SO TO GET PT.
--- NOTE | 2021-07-06 14:30 | NUR ---
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 SHE IS FAMILIAR WITH THIS PT AND THERE HAS BEEN AN APS CASE OPENED IN REGARDS TO SITUATION FROM LAST VISIT. FAMILY HAS STILL NOT GOTTEN PT MEDICARE/MEDICAID SWITCHED OVER TO [place] FROM [place]. PT WAS TAKEN OUT OF [facility] THIS FALL AND BROUGHT TO DAUGHTER'S HOME D/T USING UP ALL MEDICARE DAYS IN [place]. FAMILY WAS SUPPOSED TO GET EVERYTHING DONE FOR THIS PROCESS AND STILL HAS NOT. [facility] AND FIRE DEPT WITH ASSIST GETTING PT INTO HOME.
== END 2021-07-06 13:18 | disposition home or self-care (01) ==
LOC: ER 11:07 → EDBD 11:07 → ER 13:18
DX: I50.9 Heart failure, unspecified (principal); N18.9 Chronic kidney disease, unspecified; J44.9 Chronic obstructive pulmonary disease, unspecified; I48.91 Unspecified atrial fibrillation; Z79.01 Long term (current) use of anticoagulants; Z79.51 Long term (current) use of inhaled steroids; Z79.82 Long term (current) use of aspirin; Z79.899 Other long term (current) drug therapy; Z88.0 Allergy status to penicillin; Z88.1 Allergy status to other antibiotic agents; Z88.2 Allergy status to sulfonamides; Z88.5 Allergy status to narcotic agent
CPT/HCPCS: 36415; 71045; 80053; 83880; 84484; 85025; 85610; 85730; 93005; 99285

== ENCOUNTER 2021-07-08 17:05 | Inpatient (IN) | payer MEDICARE ==
[~2021-07-08] VITALS: Ht 152.4 cm; Wt 100.4 kg
--- NOTE | 2021-07-08 17:25 | ER.PDOC ---
General Chief Complaint: Requesting Medical Care Stated Complaint: RESP DISTRESS/RIB PAIN Time seen by MD: 17:25 Source: patient, EMS Exam Limitations: no limitations History of Present Illness Initial Comments This is a 75-year-old female who comes in by paramedics with multiple falls at home. She apparently had been hallucinating according to family members and falling. She was seen 2 days ago for complaint of left knee infection however I have never seen the patient, and the left knee appeared normal at that time. Today, her left knee is swollen and it appears to have more opening in the wound that was closed 2 days ago. It is unknown if she injured it during her fall. According to the patient she was having chest tightness today and was sleeping all day. She states she was not feeling well she denies falling today. She then later tells me that she fell off the toilet and her son-in-law tried to lift her up and when she did this they felt a pop in her right chest and she fe lt like she might of her injured her chest. She has had chest tightness since this morning with associated shortness of breath, no nausea. She has been feeling cold all the time and her fever was 102 according to the patient over hearing the paramedics talk. She does have a cough but she states "this happens all the time". Severity: moderate Allergies: Coded Allergies: sulfamethoxazole (Verified Allergy, Intermediate, 03/24/21) trimethoprim (Verified Allergy, Intermediate, 03/24/21) Penicillins (Verified Allergy, Unknown, Rash, 03/23/21) fentanyl (Verified Allergy, Unknown, 03/23/21) hydromorphone (Verified Allergy, Unknown, 03/23/21) Home Meds Active Scripts Pravastatin Sodium (PRAVASTATIN SODIUM) 20 Mg Tablet, 1 TAB PO DAILY, #30 TAB 5 Refills Prov:LAMAR SIMPSON MD 04/25/21 Aspirin (ASPIRIN) 81 Mg Tab.chew, 81 MG PO DAILY24 for 30 Days, #30 TAB.CHEW 2 Refills Prov:LAMAR SIMPSON MD 04/25/21 Reported Medications Pantoprazole Sodium (PANTOPRAZOLE SODIUM) 40 Mg Tablet.dr, 20 MG PO DAILY24 03/26/21 Montelukast Sodium (MONTELUKAST SODIUM) 10 Mg Tablet, 1 TAB PO DAILY, #30 TAB 5 Refills 03/26/21 Gabapentin (NEURONTIN) 300 Mg Capsule, 1 CAP PO TID, #90 CAP 3 Refills 03/26/21 Fluticasone Propionate (FLUTICASONE PROPIONATE) 16 Gm [place].susp, 1 SPR NA DAILY, #1 INHALER 11 Refills use one spray in each nostiril once daily 03/26/21 Buspirone Hcl (BUSPIRONE HCL) 10 Mg Tablet, 1 TAB PO TID, #60 TAB 1 Refill TID at 0800,1400,2100 03/26/21 Budesonide/Formoterol Fumarate (SYMBICORT 160-4.5 MCG INHALER) 10.2 Gm Hfa.aer.ad, 2 PUFF IH DAILY24, #10.6 GRAM 3 Refills 03/26/21 Amiodarone HCl (Amiodarone HCl) 100 Mg Tablet, 2 TAB PO QD for 30 Days, #30 TAB 0 Refills 03/26/21 Albuterol Sulfate (Proair Respiclick) 90 Mcg Aer.pow.ba, 90 MCG IH Q4, PKG PRN 03/26/21 Diclofenac Sodium (Diclofenac Sodium) 1 % Gel..gram., 100 GM TP Q6HR PRN for PAIN 1 - 3, #1 TUBE APPLY 2GM TOPICALLY TO KNEES EVERY 6 HOURS NEEDED FOR PAIN 03/26/21 Doxycycline Hyclate (DOXYCYCLINE HYCLATE) 100 Mg Capsule, 1 CAP PO BID for septic arthritis for 34 Days, #68 CAP 03/26/21 Cefdinir (CEFDINIR) 300 Mg Capsule, 1 CAP PO BID for 34 Days, #68 CAP 0 Refills 03/26/21 Vilazodone Hydrochloride (VIIBRYD) 40 Mg Tablet, 1 TAB PO DAILY for depression, #30 TAB 0 Refills 03/26/21 Rivaroxaban (XARELTO) 20 Mg Tablet, 1 TAB PO DAILY24 for prevent clots for 30 Days, #30 TAB 0 Refills with food 03/26/21 Past Medical History Medical History: arrhythmia, CVA/TIA/stroke, coronary artery disease, cardiac problems, congestive heart failure, COPD, GERD, high cholesterol, hypertension, renal disease, other Surgical History: cardiac cath, knee Social History Drug Use: none Review of Systems Constitutional: denies no symptoms reported, denies see HPI, denies chills, denies diaphoresis, denies fever, denies malaise, denies weakness, denies other EENTM: denies no symptoms reported, denies see HPI, denies eye pain, denies blurred vision, denies tearing, denies double vision, denies ear pain, denies ear discharge, denies nose pain, denies nose congestion, denies throat pain, denies throat swelling, denies mouth pain, denies mouth swelling, denies other Respiratory: denies no symptoms reported, denies see HPI, denies cough, denies orthopnea, denies shortness of breath, denies stridor, denies wheezing, denies other Cardiovascular: denies no symptoms reported, denies see HPI, denies chest pain, denies edema, denies palpitations, denies syncope, denies other Gastrointestinal: denies no symptoms reported, denies see HPI, denies abdominal pain, denies constipation, denies diarrhea, denies nausea, denies vomiting, denies other Genitourinary: denies no symptoms reported, denies see HPI, denies discharge, denies dysuria, denies frequency, denies hematuria, denies pain, denies other Musculoskeletal: denies no symptoms reported, denies see HPI, denies back pain, denies gout, denies joint pain, denies joint swelling, denies muscle pain, denies muscle stiffness, denies neck pain, denies other Skin: denies no symptoms reported, denies see HPI, denies change in color, denies change in hair/nails, denies dryness, denies lesions, denies lumps, denies rash, denies other Psychiatric/Neurological: denies no symptoms reported, denies see HPI, denies anxiety, denies depressed, denies emotional problems, denies headache, denies numbness, denies paresthesia, denies pre-existing deficit, denies seizure, denies tingling, denies tremors, denies weakness, denies other Endocrine: denies no symptoms reported, denies see HPI, denies excessive sweating, denies flushing, denies intolerance to cold, denies intolerance to heat, denies increased hunger, denies increased thrist, denies increased urine, denies unexplained weight gain, denies unexplaned weight loss, denies other Hematologic/Lymphatic: denies no symptoms reported, denies see HPI, denies anemia, denies blood clots, denies easy bleeding, denies easy bruising, denies swollen glands, denies other All Other Systems: Reviewed and Negative Physical Exam General Appearance: No Apparent Distress, WD/WN HEENT: PERRL/EOMI, Normal ENT Inspection, TMs Normal, Pharynx Normal Neck: Non-Tender, Full Range of Motion, Supple, Normal Inspection Respiratory: chest non-tender, lungs clear, normal breath sounds, no respiratory distress, no accessory muscle use Cardiovascular: Normal Peripheral Pulses, Regular Rate, Rhythm, No Edema, No Gallop, No JVD, No Murmur Gastrointestinal: Normal Bowel Sounds, No Organomegaly, No Pulsatile Mass, Non Tender, Soft Rectal: Normal Exam Extremities: Normal Range of Motion, Non-Tender, Normal Inspection, No Pedal Edema, No Calf Tenderness, Normal Capillary Refill Neurologic/Psychiatric: appliquer II-XII NML as Tested, No Motor/Sensory Deficits, Alert, Normal Mood/Affect, Oriented x 3 Skin: Normal Color, Warm/Dry Lymphatic: No Adenopathy Results/Orders Results/Orders Orders - WILLIAM CR MD Cbc With Auto Diff (07/08/21 17:29) Comprehensive Metabolic Panel (07/08/21 17:29) Lactic Acid(Ml) (07/08/21 17:29) Urinalysis (07/08/21 17:29) Vancomycin/Water For Inj (Peg) (Vancomyc (07/08/21 17:29) Levofloxacin 750mg/D5w 100ml (Levaquin) (07/08/21 17:29) Blood Culture (07/08/21 17:35) Xr Knee Lt 2v (07/08/21 17:36) Xr Chest 1v (07/08/21 18:26) Levofloxacin 750mg/D5w 100ml (Levaquin) (07/08/21 18:47) Urine Culture (07/08/21 17:30) 0.9 % Sodium Chloride (Ns 1000ml) (07/08/21 19:08) Admit Orders (07/08/21 19:12) Vital Signs Date Time Temp Pulse Resp B/P (MAP) Pulse Ox O2 Delivery O2 Flow Rate FiO2 07/08/21 17:34 100.4 105 26 97 Non-Rebreather 10.00 07/08/21 17:34 100.4 105 26 07/08/21 17:34 100.4 105 26 97 Laboratory Tests Test 07/08/21 15:25 07/08/21 17:30 07/08/21 18:10 Urine Collection Type CATH Urine Color YELLOW Urine Appearance CLOUDY Urine Bilirubin NEGATIVE (NEGATIVE) Urine Ketones NEGATIVE (NEGATIVE) Urine Specific [place] 1.025 (1.005-1.030) Urine pH 5.5 (4.5-8.0) Urine Protein NEGATIVE (NEGATIVE) Urine Urobilinogen 0.2 E.U./dL (0.2) Urine Nitrate POSITIVE (NEGATIVE) H Urine Leukocyte Esterase 1+ (NEGATIVE) H Urine Glucose (Auto)(UA) NEGATIVE (NEGATIVE) Urine Blood NEGATIVE (NEGATIVE) Urine RBC 2-5 RBC/HPF (NONE SEEN) Urine WBC TooNumerousToCount WBC/HPF (0-2) Urine Squamous Epithelial Cells FEW (<=FEW) Urine Bacteria MANY (NONE SEEN) H White Blood Count 19.6 10^3/uL (4.5-11.0) H Red Blood Count 3.61 10^6/uL (4.00-5.20) L Hemoglobin 11.2 g/dL (12.0-15.0) L Hematocrit 36.1 % (36.0-46.0) Mean Corpuscular Volume 100.0 fL (78-100) Mean Corpuscular Hemoglobin 31.0 pg (26-34) Mean Corpuscular Hemoglobin Concent 31.0 g/dL (33-36.5) L Red Cell Distribution Width 15.6 % (11.5-14.5) H Platelet Count 321 10^3/uL (150-400) Mean Platelet Volume 10.1 fL (7.8-11.0) Neutrophils (%) (Auto) 91.2 % (41.0-85.0) *H Lymphocytes (%) (Auto) 3.5 % (24.0-44.0) *L Monocytes (%) (Auto) 4.6 % (5.0-12.0) L Neutrophils # (Auto) 17.9 10^3/uL (1.8-7.7) H Lymphocytes # (Auto) 0.68 10^3/uL1 (1.0-4.8) L Monocytes # (Auto) 0.9 10^3/uL (0.3-0.8) H Absolute Immature Granulocyte (auto 0.10 10^3 u/L (0-2) Absolute Eosinophils (auto) 0.0 10^3/uL (0.0-0.2) Immature Granulocytes % 0.50 % (0.00-0.50) Eosinophils % 0.0 % (0.0-5.0) Basophils % 0.2 % (0.0-0.2) Basophils # 0.0 10^3/uL (0.0-0.1) Sodium Level 141 mmol/L (132-145) Potassium Level 4.1 mmol/L (3.6-5.2) Chloride Level 105.0 mmol/L (96-109) Carbon Dioxide Level 28.9 mmol/L (20.0-32) Anion Gap 11.2 Blood Urea Nitrogen 16 mg/dL (7-18) Creatinine 1.34 mg/dL (0.59-1.40) Estimated GFR () 46.7 (>/=60) Est GFR (CKD-EPI)(Non-Afr [place]) 38.6 (>/=60) BUN/Creatinine Ratio 11.0 Glucose Level 100 mg/dL (70-110) Lactic Acid Level 1.8 mmol/L (0.5-1.9) Calcium Level 8.4 mg/dL (8.4-10.5) Total Bilirubin 0.5 mg/dL (0.2-1.0) Aspartate Amino Transferase (AST) 25 U/L (0-35) Alanine Aminotransferase (ALT) 23 U/L (12-78) Alkaline Phosphatase 90 U/L (50-136) Total Protein 6.0 g/dL (6.4-8.2) L Albumin 2.6 g/dL (3.4-5.0) L Globulin 3.4 Albumin/Globulin Ratio 0.764 Segmented Neutrophils 97 % (31-76) H Lymphocytes 2 % (25-36) L Monocytes 1 % (3-9) L Platelet Estimate ADEQUATE Platelet Morphology NORMAL Progress Progress While in the emergency department, the patient received a liter of normal saline, I started her on Levaquin and vancomycin. The urinalysis came back with white blood cells too numerous to count, this coupled with the fact the patient's blood pressure was low initially and her white count was elevated at 19,000, I decided to admit the patient. I spoke with Dr. Simpson on the phone and discussed the case with him. It was decided to place the patient in the intensive care unit overnight. The lactic acid was only 1.8, but this will be followed. ER DEPART Departure Time of Disposition: 19:15 Disposition: 02 SHORT TERM HOSPITAL Impression: Primary Impression: Sepsis Additional Impression: UTI (urinary tract infection) Condition: Stable Referrals: PCP,UNKNOWN (PCP) PRIMARY CARE PROVIDER Duration or Time Spent with Pa: Unknown Problem Qualifiers Primary Impression: Sepsis Sepsis type: sepsis due to unspecified organism Additional Impression: UTI (urinary tract infection) Urinary tract infection type: site unspecified Hematuria presence: without hematuria Qualified Codes: N39.0 - Urinary tract infection, site not specified WILLIAM CR MD Jul 08, 2021 17:25
[2021-07-08] MEDS ORDERED: LEVAQUIN 150 ML IV STA (17:29)
[2021-07-08] MEDS ORDERED: VANCOMYCIN 1.5 GM/300 ML BAG 300 ML IV STA (17:29)
--- NOTE | 2021-07-08 17:30 | NUR ---
EMS arival via stretcher. Tranfer treatment table x3 assist. Melodorous clothing on pt. Gown and brief urine soaked. Pt A/O x3. Readmit. pt in ED 07/06/21 with similar complaints SS. VS recording, Pt cleansed with wipes, linen and gown changed. Reports pain LLE Knee rated 8/10.
[2021-07-08 17:34] VITALS: BP 84/60
[2021-07-08 18:06] LABS: BASOPHIL % 0.2 % (0.0-0.2); LYMPHOCYTES # 0.68 10^3/uL1 (1.0-4.8); LYMPHOCYTES % 3.5 % (24.0-44.0); MONOCYTES # 0.9 10^3/uL (0.3-0.8); MONOCYTES % 4.6 % (5.0-12.0); NEUTROPHIL # 17.9 10^3/uL (1.8-7.7); NEUTROPHILS % 91.2 % (41.0-85.0); PLATELET COUNT 321 10^3/uL (150-400); RED CELL DISTRIBUTION WIDTH 15.6 % (11.5-14.5)
--- NOTE | 2021-07-08 18:16 | DIREP ---
PROCEDURE:XRAY KNEE 2 VWS-LT COMPARISON:[facility], CR, XRAY KNEE 1-2 VWS-LT, 04/21/2021, 01:39 PM. INDICATIONS:left knee infection FINDINGS: BONES:Total knee arthroplasty. No visible fracture. JOINTS:Moderate joint effusion is small calcified bodies in the posterior joint space. SOFT TISSUES:Circumferential soft tissue swelling. OTHER:No additional findings. CONCLUSION:Moderate joint effusion Dictated by: Katheryn Angeles M.D. on 07/08/2021 at 06:13 PM
[2021-07-08 18:26] LABS: CARBON DIOXIDE 28.9 mmol/L (20.0-32)
--- NOTE | 2021-07-08 18:26 | NUR ---
UPDATE DAUGHTER CALLED TO CHECK ON HER MOTHER. UPDATE GIVEN. DR. CR NOTIFIED OF PATIENT C/O RIGHT SIDED RIB PAIN WITH POSSIBLE, RIB FRACTURE. SON - IN - LAW PICKED UP PATIENT FROM ASSISTED FALL, HEARD A POP AND THEN PATIENT C/O RIGHT SIDED PAIN.
--- NOTE | 2021-07-08 18:27 | NUR ---
REPORT REPORT GIVEN TO ON COMING SHIFT.
[2021-07-08 18:38] LABS: BILIRUBIN,URINE NEGATIVE (NEGATIVE); UROBILINOGEN,URINE 0.2 E.U./dL (0.2)
--- NOTE | 2021-07-08 18:44 | DIREP ---
PROCEDURE:CHEST 1 VIEW COMPARISON:[facility], CR, XRAY CHEST SINGLE VW, 07/06/2021, 11:43 AM. INDICATIONS:chest pain FINDINGS: LUNGS/PLEURA:There is interval development of infiltrates in the right upper lobe and right mid lung field. Linear subsegmental atelectasis is seen in the left mid lung field. Mild increased interstitial markings bilaterally are again noted. VASCULATURE:Normal. Unremarkable pulmonary vasculature. CARDIAC:Normal. No cardiac silhouette abnormality or cardiomegaly. MEDIASTINUM:Normal. No visible mass or adenopathy. BONES:Degenerative changes are seen in both shoulders. OTHER:Negative. CONCLUSION:Interval development of infiltrates or pneumonia in the right upper lobe and right mid lung field with linear subsegmental atelectasis in the left mid lung field. Dictated by: Johnny Swenson M.D. on 07/08/2021 at 06:41 PM
[2021-07-08 18:46] LABS: LYMPHOCYTE 2 % (25-36); MONOCYTE 1 % (3-9); SEGMENTED NEUTROPHILS 97 % (31-76)
[2021-07-08] MEDS ORDERED: LEVAQUIN 150 ML IV ONE (18:47)
[2021-07-08] MEDS ORDERED: NS 1000ML 1,000 ML ONE (19:08)
[2021-07-08] MEDS ORDERED: NS 250ML 250 ML ONE (21:38)
[2021-07-08] MEDS ORDERED: VANCOMYCIN HCL 1 GM ONE (21:38)
--- NOTE | 2021-07-08 21:53 | PCM.HP ---
History of Present Illness Reason for Visit: (1) Sepsis ICD Code: A41.9 - Sepsis, unspecified organism SNOMED: 69914908 Hx of Present Illness Ms. Sears is a pleasant 75-year-old female who presents with 3 days of malaise and fatigue which her daughter finally used to convince her to come to the emergency department. Upon arrival here, the patient said to be hypotensive as well as to have a UTI based upon laboratory values. Her blood pressure responded to IV fluids, and the patient feels markedly better while talking to me. She reports that she is still somewhat tired but feels much better than she did prior to arrival here. Prior to the onset of the symptoms, she had been in her usual state of good health, and takes only sporadic antihypertensives for highly variable blood pressures even at baseline. She is also on antibiotics for chronic knee infection. Review of Systems Musculoskeletal: leg pain Other Complete review of systems is negative except as per HPI Allergies: Coded Allergies: sulfamethoxazole (Verified Allergy, Intermediate, 03/24/21) trimethoprim (Verified Allergy, Intermediate, 03/24/21) Penicillins (Verified Allergy, Unknown, Rash, 03/23/21) fentanyl (Verified Allergy, Unknown, 03/23/21) hydromorphone (Verified Allergy, Unknown, 03/23/21) Scheduled Albuterol Sulfate (Proair Respiclick), 90 MCG IH Q4, (Reported) Amiodarone HCl (Amiodarone HCl), 2 TAB PO QD, (Reported) Aspirin (Aspirin), 81 MG PO DAILY24 Budesonide/Formoterol Fumarate (Symbicort 160-4.5 Mcg Inhaler), 2 PUFF IH DAILY24, (Reported) Buspirone Hcl (Buspirone Hcl), 1 TAB PO TID, (Reported) Cefdinir (Cefdinir), 1 CAP PO BID, (Reported) Doxycycline Hyclate (Doxycycline Hyclate), 1 CAP PO BID, (Reported) Fluticasone Propionate (Fluticasone Propionate), 1 SPR NA DAILY, (Reported) Gabapentin (Neurontin), 1 CAP PO TID, (Reported) Montelukast Sodium (Montelukast Sodium), 1 TAB PO DAILY, (Reported) Pantoprazole Sodium (Pantoprazole Sodium), 20 MG PO DAILY24, (Reported) Pravastatin Sodium (Pravastatin Sodium), 1 TAB PO DAILY Rivaroxaban (Xarelto), 1 TAB PO DAILY24, (Reported) Vilazodone Hydrochloride (Viibryd), 1 TAB PO DAILY, (Reported) Scheduled PRN Diclofenac Sodium (Diclofenac Sodium), 100 GM TP Q6HR PRN for PAIN 1 - 3, (Reported) VTE VTE Risk Total Score: >5 VTE Risk Score VTE Risk: Score 0-1 = Low Risk (Aggressive mobilization; early ambulation; no VTE prophylaxis required) Score 2: Moderate Risk (Intermittent/Pneumatic Compression Device OR Lovenox/Heparin/Coumadin) Score 3-4: High Risk (Intermittent/Pneumatic Compression Device AND Lovenox/Heparin/Coumadin) Score > or =5: Highest Risk (Intermittent/Pneumatic Compression Device AND Lovenox/Heparin/Coumadin) Antico:Hep/LMWH/Coum/Xarelto: Yes Mechanical device ordered: No VTE VTE Present on Admission: No Currently receiving anticoagul: Yes VTE Risk Total Score: >5 Antico:Hep/LMWH/Coum/Xarelto: Yes Mechanical device ordered: No Protocol for Platelet Monitori: Following Clinical Path Exam Vital Signs Vital Signs Date Time Temp Pulse Resp B/P (MAP) Pulse Ox O2 Delivery O2 Flow Rate FiO2 07/08/21 17:34 100.4 105 26 97 Non-Rebreather 10.00 General Appearance: Alert, Oriented X3, Cooperative HEENT: Atraumatic, PERRLA, EOMI Respiratory: Clear to auscultation, Normal air movement Cardiovascular: Regular rate, Normal S1 Abdominal: Normal bowel sounds, Soft Extremities: No clubbing, No cyanosis Neuro: Normal speech Psych/Mental Status: Mental status NL, Mood NL Assessment/Plan Assessment/Plan Problems: (1) UTI (urinary tract infection) Status: Acute Assessment & Plan: Based upon urinalysis, started on empiric antibiotics, will continue with Rocephin overnight and transition to oral agents once speciation and sensitivities are available. We will work to combine her new antibiotic with her extant antibiotics for her known chronic wound infection. ICD Code: N39.0 - Urinary tract infection, site not specified SNOMED: 94854177 (2) Sepsis Status: Acute Assessment & Plan: Based upon obvious site of infection at bladder as well as hypotension, responded to 1 L bolused IV fluids, will continue to monitor overnight and give additional boluses as needed ICD Code: A41.9 - Sepsis, unspecified organism SNOMED: 99242122 (3) Morbid obesity with BMI of 40.0-44.9, adult Status: Chronic Assessment & Plan: Will funeral counselor patient on weight loss prior to discharge, given acuity of illness no possible treatment in the inpatient setting ICD Code: E66.01 - Morbid (severe) obesity due to excess calories; Z68.41 - Body mass index [BMI] 40.0-44.9, adult SNOMED: 647453024, 088319051, [id number] (4) CAD (coronary artery disease) Status: Chronic Assessment & Plan: Per patient, states that she does not take any medications on a regular basis ICD Code: I25.10 - Atherosclerotic heart disease of [place] coronary artery without angina pectoris SNOMED: 63902570 Patient History: Asthma G8 MOTHER Chronic obstructive pulmonary disease G8 MOTHER FH: alcoholism G8 MOTHER No known health problems G8 FATHER 19 CHILD 19 CHILD 19 CHILD 19 CHILD 19 CHILD Problem Qualifiers (1) Sepsis: Sepsis type: sepsis due to unspecified organism LAMAR SIMPSON MD Jul 08, 2021 21:53
--- NOTE | 2021-07-08 23:15 | NUR ---
Darshan wilson in Lab covid-19 swab is negative.
--- NOTE | 2021-07-08 23:21 | NUR ---
report called to Anabella GOMEZ. pt to [phone] via stretcher with O2.
[2021-07-08] MEDS ORDERED: ROCEPHIN ONE (23:44)
[2021-07-08] MEDS ORDERED: NS 100ML 100 ML IV ONE (23:44)
[2021-07-09] VITALS: BP 89/51
[2021-07-09] MEDS: D5NS 1,000 ML IV SCH ×3 (00:17→18:00)
[2021-07-09] MEDS: ROCEPHIN 1,000 MG in NS 100ML 100 ML IV SCH ×2 (00:17→21:32)
--- NOTE | 2021-07-09 05:43 | NUR ---
Pt arrived the unit at 2335 via stretcher from the ER. Admission head to toe assessment completed. Pt on Non-rebreather mask at 12litres with Sats at 93%. No acute distress noted.
[2021-07-09] MEDS: NORCO 10MG PO PRN ×3 (06:02→21:32)
[2021-07-09 06:05] VITALS: BP 92/52
[2021-07-09 06:13] LABS: BASOPHIL % 0.2 % (0.0-0.2); EOSINOPHIL # 0.1 10^3/uL (0.0-0.2); EOSINOPHIL % 0.4 % (0.0-5.0); LYMPHOCYTES # 1.39 10^3/uL1 (1.0-4.8); LYMPHOCYTES % 7.3 % (24.0-44.0); MEAN CORP HGB 30.8 pg (26-34); MONOCYTES % 5.2 % (5.0-12.0); NEUTROPHIL # 16.5 10^3/uL (1.8-7.7); NEUTROPHILS % 86.7 % (41.0-85.0); PLATELET COUNT 279 10^3/uL (150-400); RED CELL DISTRIBUTION WIDTH 15.8 % (11.5-14.5)
[2021-07-09 06:18] LABS: CARBON DIOXIDE 26.9 mmol/L (20.0-32)
[2021-07-09 10:30] VITALS: BP 97/56
--- NOTE | 2021-07-09 12:35 | PRM.PN ---
Subjective Subjective Date: Jul 09, 2021 Time: 12:29 Subjective Denny reports that she is still sick to her stomach, also reports right-sided chest pain with deep breath Patient History: Asthma G8 MOTHER Chronic obstructive pulmonary disease G8 MOTHER FH: alcoholism G8 MOTHER No known health problems G8 FATHER 19 CHILD 19 CHILD 19 CHILD 19 CHILD 19 CHILD VTE VTE Risk Total Score: 2 VTE Risk Score VTE Risk: Score 0-1 = Low Risk (Aggressive mobilization; early ambulation; no VTE prophylaxis required) Score 2: Moderate Risk (Intermittent/Pneumatic Compression Device OR Lovenox/Heparin/Coumadin) Score 3-4: High Risk (Intermittent/Pneumatic Compression Device AND Lovenox/Heparin/Coumadin) Score > or =5: Highest Risk (Intermittent/Pneumatic Compression Device AND Lovenox/Heparin/Coumadin) Antico:Hep/LMWH/Coum/Xarelto: Yes Mechanical device ordered: No Review of Systems Musculoskeletal: leg pain Allergies: Coded Allergies: sulfamethoxazole (Verified Allergy, Intermediate, 03/24/21) trimethoprim (Verified Allergy, Intermediate, 03/24/21) Penicillins (Verified Allergy, Unknown, Rash, 03/23/21) fentanyl (Verified Allergy, Unknown, 03/23/21) hydromorphone (Verified Allergy, Unknown, 03/23/21) Scheduled Albuterol Sulfate (Proair Respiclick), 90 MCG IH Q4, (Reported) Amiodarone HCl (Amiodarone HCl), 2 TAB PO QD, (Reported) Aspirin (Aspirin), 81 MG PO DAILY24 Budesonide/Formoterol Fumarate (Symbicort 160-4.5 Mcg Inhaler), 2 PUFF IH SARAH Y24, (Reported) Buspirone Hcl (Buspirone Hcl), 1 TAB PO TID, (Reported) Cefdinir (Cefdinir), 1 CAP PO BID, (Reported) Doxycycline Hyclate (Doxycycline Hyclate), 1 CAP PO BID, (Reported) Fluticasone Propionate (Fluticasone Propionate), 1 SPR NA DAILY, (Reported) Gabapentin (Neurontin), 1 CAP PO TID, (Reported) Montelukast Sodium (Montelukast Sodium), 1 TAB PO DAILY, (Reported) Pantoprazole Sodium (Pantoprazole Sodium), 20 MG PO DAILY24, (Reported) Pravastatin Sodium (Pravastatin Sodium), 1 TAB PO DAILY Rivaroxaban (Xarelto), 1 TAB PO DAILY24, (Reported) Vilazodone Hydrochloride (Viibryd), 1 TAB PO DAILY, (Reported) Scheduled PRN Diclofenac Sodium (Diclofenac Sodium), 100 GM TP Q6HR PRN for PAIN 1 - 3, (Reported) Objective Vitals and I/O Vital Sign - Last 24 Hours 07/09/21 07/09/21 09:03 09:03 Pulse 77 Resp 18 18 Pulse Ox 92 85 O2 Delivery Nasal Cannula O2 Flow Rate 3.50 FiO2 35 General: Alert, Oriented X3, Cooperative HEENT: Atraumatic, PERRLA, EOMI Lungs: Clear to auscultation, Normal air movement Heart: Regular rate, Normal S1 Abdomen: Normal bowel sounds, Soft Extremities: No clubbing, No cyanosis Neuro: Normal speech Psych/Mental Status: Mental status NL, Mood NL All Results(Lab/Rad) Laboratory Tests Test 07/08/21 15:25 07/08/21 17:30 07/08/21 18:00 07/08/21 18:10 Urine Collection Type CATH Urine Color YELLOW Urine Appearance CLOUDY Urine Bilirubin NEGATIVE Urine Ketones NEGATIVE Urine Specific [place] 1.025 Urine pH 5.5 Urine Protein NEGATIVE Urine Urobilinogen 0.2 E.U./dL Urine Nitrate POSITIVE Urine Leukocyte Esterase 1+ Urine Glucose (Auto)(UA) NEGATIVE Urine Blood NEGATIVE Urine RBC 2-5 RBC/HPF Urine WBC TooNumerousToCount WBC/HPF Urine Squamous Epithelial Cells FEW Urine Bacteria MANY White Blood Count 19.6 10^3/uL Red Blood Count 3.61 10^6/uL Hemoglobin 11.2 g/dL Hematocrit 36.1 % Mean Corpuscular Volume 100.0 fL Mean Corpuscular Hemoglobin 31.0 pg Mean Corpuscular Hemoglobin Concent 31.0 g/dL Red Cell Distribution Width 15.6 % Platelet Count 321 10^3/uL Mean Platelet Volume 10.1 fL Neutrophils (%) (Auto) 91.2 % Lymphocytes (%) (Auto) 3.5 % Monocytes (%) (Auto) 4.6 % Neutrophils # (Auto) 17.9 10^3/uL Lymphocytes # (Auto) 0.68 10^3/uL1 Monocytes # (Auto) 0.9 10^3/uL Absolute Immature Granulocyte (auto 0.10 10^3 u/L Absolute Eosinophils (auto) 0.0 10^3/uL Immature Granulocytes % 0.50 % Eosinophils % 0.0 % Basophils % 0.2 % Basophils # 0.0 10^3/uL Sodium Level 141 mmol/L Potassium Level 4.1 mmol/L Chloride Level 105.0 mmol/L Carbon Dioxide Level 28.9 mmol/L Anion Gap 11.2 Blood Urea Nitrogen 16 mg/dL Creatinine 1.34 mg/dL Estimated GFR () 46.7 Est GFR (CKD-EPI)(Non-Afr [place]ian) 38.6 BUN/Creatinine Ratio 11.0 Glucose Level 100 mg/dL Lactic Acid Level 1.8 mmol/L Calcium Level 8.4 mg/dL Total Bilirubin 0.5 mg/dL Aspartate Amino Transf (AST/SGOT) 25 U/L Alanine Aminotransferase (ALT/SGPT) 23 U/L Alkaline Phosphatase 90 U/L Total Protein 6.0 g/dL Albumin 2.6 g/dL Globulin 3.4 Albumin/Globulin Ratio 0.764 SARS-CoV-2 Antigen (Rapid) NEGATIVE Segmented Neutrophils 97 % Lymphocytes 2 % Monocytes 1 % Platelet Estimate ADEQUATE Platelet Morphology NORMAL Test 07/09/21 05:35 White Blood Count 19.0 10^3/uL Red Blood Count 3.28 10^6/uL Hemoglobin 10.1 g/dL Hematocrit 33.3 % Mean Corpuscular Volume 101.5 fL Mean Corpuscular Hemoglobin 30.8 pg Mean Corpuscular Hemoglobin Concent 30.3 g/dL Red Cell Distribution Width 15.8 % Platelet Count 279 10^3/uL Mean Platelet Volume 10.1 fL Neutrophils (%) (Auto) 86.7 % Lymphocytes (%) (Auto) 7.3 % Monocytes (%) (Auto) 5.2 % Neutrophils # (Auto) 16.5 10^3/uL Lymphocytes # (Auto) 1.39 10^3/uL1 Monocytes # (Auto) 1.0 10^3/uL Absolute Immature Granulocyte (auto 0.04 10^3 u/L Absolute Eosinophils (auto) 0.1 10^3/uL Immature Granulocytes % 0.20 % Eosinophils % 0.4 % Basophils % 0.2 % Basophils # 0.0 10^3/uL Sodium Level 141 mmol/L Potassium Level 3.9 mmol/L Chloride Level 109.0 mmol/L Carbon Dioxide Level 26.9 mmol/L Glucose Level 115 mg/dL Blood Urea Nitrogen 16 mg/dL Creatinine 1.08 mg/dL Calcium Level 7.9 mg/dL Anion Gap 9.0 Estimated GFR () 59.8 Est GFR (CKD-EPI)(Non-Afr [place]ian) 49.5 BUN/Creatinine Ratio 14.0 Current Medications Medications (Trade) Dose Ordered Sig/Mj Route PRN Reason Start Time Stop Time Status Last Admin Dose Admin Levofloxacin/ Dextrose 150 ml @ 100 mls/hr Q24HRS STAT IV 07/08/21 17:29 07/08/21 18:58 DC 07/08/21 19:40 Levofloxacin/ Dextrose 150 ml @ ud STK-MED ONCE IV 07/08/21 18:47 07/08/21 18:47 DC Sodium Chloride 1,000 ml @ ud STK-MED ONCE .ROUTE 07/08/21 19:08 07/08/21 19:08 DC Sodium Chloride 250 ml @ ud STK-MED ONCE .ROUTE 07/08/21 21:38 07/08/21 21:38 DC Vancomycin HCl 1 ml @ ud STK-MED ONCE .ROUTE 07/08/21 21:38 07/08/21 21:38 DC Ceftriaxone Sodium 1000 mg/ Sodium Chloride 100 ml @ 100 mls/hr Q24HRS IV 07/08/21 22:00 08/07/21 21:59 07/09/21 00:17 Dextrose/Sodium Chloride 1,000 ml @ 100 mls/hr Q10H IV 07/08/21 22:00 08/07/21 21:59 07/09/21 11:21 Sodium Chloride 100 ml @ ud STK-MED ONCE IV 07/08/21 23:44 07/08/21 23:44 DC Ceftriaxone Sodium (Rocephin) 1,000 mg STK-MED ONCE .ROUTE 07/08/21 23:44 07/08/21 23:45 DC Acetaminophen/ Hydrocodone Bitart ([place] 10mg) 1 each Q6H PRN PO PAIN 7 - 10 07/09/21 06:00 08/08/21 05:59 07/09/21 06:02 Course Sepsis Screening Results: Posi: POSITIVE Sepsis Qualifier/Stage: SEPSIS RISK Duration or Total Time Spent w: Unknown Vitals & review Data Vital Sign - Last 24 Hours 07/09/21 07/09/21 09:03 09:03 Pulse 77 Resp 18 18 Pulse Ox 92 85 O2 Delivery Nasal Cannula O2 Flow Rate 3.50 FiO2 35 Laboratory Tests Test 07/08/21 15:25 07/08/21 17:30 07/08/21 18:00 07/08/21 18:10 Urine Collection Type CATH Urine Color YELLOW Urine Appearance CLOUDY Urine Bilirubin NEGATIVE Urine Ketones NEGATIVE Urine Specific [place] 1.025 Urine pH 5.5 Urine Protein NEGATIVE Urine Urobilinogen 0.2 E.U./dL Urine Nitrate POSITIVE Urine Leukocyte Esterase 1+ Urine Glucose (Auto)(UA) NEGATIVE Urine Blood NEGATIVE Urine RBC 2-5 RBC/HPF Urine WBC TooNumerousToCount WBC/HPF Urine Squamous Epithelial Cells FEW Urine Bacteria MANY White Blood Count 19.6 10^3/uL Red Blood Count 3.61 10^6/uL Hemoglobin 11.2 g/dL Hematocrit 36.1 % Mean Corpuscular Volume 100.0 fL Mean Corpuscular Hemoglobin 31.0 pg Mean Corpuscular Hemoglobin Concent 31.0 g/dL Red Cell Distribution Width 15.6 % Platelet Count 321 10^3/uL Mean Platelet Volume 10.1 fL Neutrophils (%) (Auto) 91.2 % Lymphocytes (%) (Auto) 3.5 % Monocytes (%) (Auto) 4.6 % Neutrophils # (Auto) 17.9 10^3/uL Lymphocytes # (Auto) 0.68 10^3/uL1 Monocytes # (Auto) 0.9 10^3/uL Absolute Immature Granulocyte (auto 0.10 10^3 u/L Absolute Eosinophils (auto) 0.0 10^3/uL Immature Granulocytes % 0.50 % Eosinophils % 0.0 % Basophils % 0.2 % Basophils # 0.0 10^3/uL Sodium Level 141 mmol/L Potassium Level 4.1 mmol/L Chloride Level 105.0 mmol/L Carbon Dioxide Level 28.9 mmol/L Anion Gap 11.2 Blood Urea Nitrogen 16 mg/dL Creatinine 1.34 mg/dL Estimated GFR () 46.7 Est GFR (CKD-EPI)(Non-Afr [place]divian) 38.6 BUN/Creatinine Ratio 11.0 Glucose Level 100 mg/dL Lactic Acid Level 1.8 mmol/L Calcium Level 8.4 mg/dL Total Bilirubin 0.5 mg/dL Aspartate Amino Transf (AST/SGOT) 25 U/L Alanine Aminotransferase (ALT/SGPT) 23 U/L Alkaline Phosphatase 90 U/L Total Protein 6.0 g/dL Albumin 2.6 g/dL Globulin 3.4 Albumin/Globulin Ratio 0.764 SARS-CoV-2 Antigen (Rapid) NEGATIVE Segmented Neutrophils 97 % Lymphocytes 2 % Monocytes 1 % Platelet Estimate ADEQUATE Platelet Morphology NORMAL Test 07/09/21 05:35 White Blood Count 19.0 10^3/uL Red Blood Count 3.28 10^6/uL Hemoglobin 10.1 g/dL Hematocrit 33.3 % Mean Corpuscular Volume 101.5 fL Mean Corpuscular Hemoglobin 30.8 pg Mean Corpuscular Hemoglobin Concent 30.3 g/dL Red Cell Distribution Width 15.8 % Platelet Count 279 10^3/uL Mean Platelet Volume 10.1 fL Neutrophils (%) (Auto) 86.7 % Lymphocytes (%) (Auto) 7.3 % Monocytes (%) (Auto) 5.2 % Neutrophils # (Auto) 16.5 10^3/uL Lymphocytes # (Auto) 1.39 10^3/uL1 Monocytes # (Auto) 1.0 10^3/uL Absolute Immature Granulocyte (auto 0.04 10^3 u/L Absolute Eosinophils (auto) 0.1 10^3/uL Immature Granulocytes % 0.20 % Eosinophils % 0.4 % Basophils % 0.2 % Basophils # 0.0 10^3/uL Sodium Level 141 mmol/L Potassium Level 3.9 mmol/L Chloride Level 109.0 mmol/L Carbon Dioxide Level 26.9 mmol/L Glucose Level 115 mg/dL Blood Urea Nitrogen 16 mg/dL Creatinine 1.08 mg/dL Calcium Level 7.9 mg/dL Anion Gap 9.0 Estimated GFR () 59.8 Est GFR (CKD-EPI)(Non-Afr Mal[place]ian) 49.5 BUN/Creatinine Ratio 14.0 Current Medications Medications (Trade) Dose Ordered Sig/Mj PRN Reason Start Time Stop Time Status Last Admin Acetaminophen/ Hydrocodone Bitart ([place] 10mg) 1 each Q6H PRN PAIN 7 - 10 07/09/21 06:00 08/08/21 05:59 07/09/21 06:02 Ceftriaxone Sodium 1000 mg/ Sodium Chloride 100 ml @ 100 mls/hr Q24HRS 07/08/21 22:00 08/07/21 21:59 07/09/21 00:17 Dextrose/Sodium Chloride 1,000 ml @ 100 mls/hr Q10H 07/08/21 22:00 08/07/21 21:59 07/09/21 11:21 LEVEL 1 SEPSIS INFECTION CRITE: ABX Therapy, Cough/Shortness of Breath LEVEL 2-SIRS (LIST ALL THAT AP: None/Not assessed Cardiovascular Evidence: SBP<90 Hematologic Evidence: None/Not assessed Hepatic Evidence: None/Not assessed Metabolic Evidence: None/Not assessed Neurological Evidence: None/Not assessed Respiratory Evidence: Need for O2 to keep>90%, O2 SAT<90room air Renal Evidence: None/Not assessed O2 Sat by Pulse Oximetry: 85 Oxygen Flow Rate: 3.50 Assessment/Plan Assessment/Plan Problems: (1) Septic arthritis Status: Chronic Assessment & Plan: On chronic antibiotics, currently on Rocephin once we have speciation and sensitivities back from the urine culture we will try to get her on a regimen appropriate for both her knee and UTI ICD Code: M00.9 - Pyogenic arthritis, unspecified SNOMED: 889325622 (2) COPD (chronic obstructive pulmonary disease) Status: Chronic Assessment & Plan: Continue with duo nebs while here ICD Code: J44.9 - Chronic obstructive pulmonary disease, unspecified SNOMED: 85463510 (3) Atrial fibrillation Status: Chronic Assessment & Plan: Remains rate controlled On metoprolol 12.5 twice daily, on apixaban prophylaxis ICD Code: I48.91 - Unspecified atrial fibrillation SNOMED: 58994639 (4) UTI (urinary tract infection) Status: Acute Assessment & Plan: Based upon urinalysis as well as acute picture of illness, currently on empiric Rocephin we will monitor cultures and sensitivities and tailor antibiotics to those ICD Code: N39.0 - Urinary tract infection, site not specified SNOMED: 33091536 (5) Sepsis Status: Acute Assessment & Plan: Based upon initial clinical picture, appears to be overall improved, treatment for UTI as above ICD Code: A41.9 - Sepsis, unspecified organism SNOMED: 27094794 (6) Morbid obesity with BMI of 40.0-44.9, adult Status: Chronic Assessment & Plan: Counseled patient on weight loss ICD Code: E66.01 - Morbid (severe) obesity due to excess calories; Z68.41 - Body mass index [BMI] 40.0-44.9, adult SNOMED: 725168310, 627633962, [id number] (7) CAD (coronary artery disease) Status: Chronic Assessment & Plan: We will start aspirin and statin upon discharge ICD Code: I25.10 - Atherosclerotic heart disease of [place] coronary artery without angina pectoris SNOMED: 50820205 (8) Nausea & vomiting Status: Acute Assessment & Plan: Likely affiliated with acute infection, starting Zofran 4 every 6 IV ICD Code: R11.2 - Nausea with vomiting, unspecified SNOMED: 67342364 Problem Qualifiers (1) Sepsis: Sepsis type: sepsis due to unspecified organism LAMAR SIMPSON MD Jul 09, 2021 12:35
[2021-07-09] MEDS: DUO 0.5-3(2.5) MG/3 ML IH SCH ×3 (13:08→21:55)
[2021-07-09] MEDS: ZOFRAN IV SCH ×2 (13:31→18:33)
[2021-07-09 16:00] VITALS: BP 103/52
[2021-07-09 19:25] VITALS: BP 119/62
[2021-07-09] MEDS: LOPRESSER PO SCH (21:32)
[2021-07-09] MEDS: ELIQUIS PO SCH (21:32)
[2021-07-09] MEDS: NYSTOP TP SCH (21:33)
[2021-07-10] MEDS: ZOFRAN IV SCH ×4 (00:54→18:24)
[2021-07-10] MEDS: D5NS 1,000 ML IV SCH ×4 (02:30→22:38)
[2021-07-10 03:42] VITALS: BP 137/74
[2021-07-10] MEDS: NORCO 10MG PO PRN ×4 (03:49→22:18)
[2021-07-10] MEDS: DUO 0.5-3(2.5) MG/3 ML IH SCH ×4 (07:40→22:18)
[2021-07-10] MEDS: ELIQUIS PO SCH ×2 (08:28→21:26)
[2021-07-10] MEDS: NYSTOP TP SCH ×2 (08:34→21:26)
[2021-07-10] MEDS: LEVAQUIN PO SCH (08:35)
[2021-07-10 08:45] VITALS: BP 125/77
[2021-07-10] MEDS: LOPRESSER PO SCH ×2 (08:59→21:26)
[2021-07-10] MEDS ORDERED: BENADRYL PO ONE (09:00)
--- NOTE | 2021-07-10 10:50 | PRM.PN ---
Subjective Subjective Date: Jul 10, 2021 Time: 10:50 Subjective Mrs. Baldwin reports that she is still suffering from nausea with poor oral intake; Did not eat dinner or breakfast Patient History: Asthma G8 MOTHER Chronic obstructive pulmonary disease G8 MOTHER FH: alcoholism G8 MOTHER No known health problems G8 FATHER 19 CHILD 19 CHILD 19 CHILD 19 CHILD 19 CHILD VTE VTE Risk Total Score: 2 VTE Risk Score VTE Risk: Score 0-1 = Low Risk (Aggressive mobilization; early ambulation; no VTE prophylaxis required) Score 2: Moderate Risk (Intermittent/Pneumatic Compression Device OR Lovenox/Heparin/Coumadin) Score 3-4: High Risk (Intermittent/Pneumatic Compression Device AND Lovenox/Heparin/Coumadin) Score > or =5: Highest Risk (Intermittent/Pneumatic Compression Device AND Lovenox/Heparin/Coumadin) Antico:Hep/LMWH/Coum/Xarelto: Yes Mechanical device ordered: No Review of Systems Musculoskeletal: leg pain Allergies: Coded Allergies: sulfamethoxazole (Verified Allergy, Intermediate, 03/24/21) trimethoprim (Verified Allergy, Intermediate, 03/24/21) Penicillins (Verified Allergy, Unknown, Rash, 03/23/21) fentanyl (Verified Allergy, Unknown, 03/23/21) hydromorphone (Verified Allergy, Unknown, 03/23/21) Scheduled Albuterol Sulfate (Proair Respiclick), 90 MCG IH Q4, (Reported) Amiodarone HCl (Amiodarone HCl), 2 TAB PO QD, (Reported) Aspirin (Aspirin), 81 MG PO DAILY24 Budesonide/Formoterol Fumarate (Symbicort 160-4.5 Mcg Inhaler), 2 PUFF IH DAILY24, (Reported) Buspirone Hcl (Buspirone Hcl), 1 TAB PO TID, (Reported) Cefdinir (Cefdinir), 1 CAP PO BID, (Reported) Doxycycline Hyclate (Doxycycline Hyclate), 1 CAP PO BID, (Reported) Fluticasone Propionate (Fluticasone Propionate), 1 SPR NA DAILY, (Reported) Gabapentin (Neurontin), 1 CAP PO TID, (Reported) Montelukast Sodium (Montelukast Sodium), 1 TAB PO DAILY, (Reported) Pantoprazole Sodium (Pantoprazole Sodium), 20 MG PO DAILY24, (Reported) Pravastatin Sodium (Pravastatin Sodium), 1 TAB PO DAILY Rivaroxaban (Xarelto), 1 TAB PO DAILY24, (Reported) Vilazodone Hydrochloride (Viibryd), 1 TAB PO DAILY, (Reported) Scheduled PRN Diclofenac Sodium (Diclofenac Sodium), 100 GM TP Q6HR PRN for PAIN 1 - 3, (Reported) Objective Vitals and I/O Vital Sign - Last 24 Hours 07/10/21 07/10/21 07/10/21 07/10/21 07:41 07:41 07:46 08:45 Temp 98.3 Pulse 67 67 72 80 Resp 18 18 18 20 B/P (MAP) 125/77 (93) Pulse Ox 97 97 96 96 O2 Delivery Nasal Cannula O2 Flow Rate 3.00 07/10/21 07/10/21 08:59 09:29 Pulse 80 B/P (MAP) 125/77 O2 Delivery Nasal Cannula O2 Flow Rate 3.00 General: Alert, Oriented X3, Cooperative HEENT: Atraumatic, PERRLA, EOMI Lungs: Clear to auscultation, Normal air movement Heart: Regular rate, Normal S1 Abdomen: Normal bowel sounds, Soft Extremities: No clubbing, No cyanosis Neuro: Normal speech Psych/Mental Status: Mental status NL, Mood NL All Results(Lab/Rad) Laboratory Tests Test 07/08/21 15:25 07/08/21 17:30 07/08/21 18:00 07/08/21 18:10 Urine Collection Type CATH Urine Color YELLOW Urine Appearance CLOUDY Urine Bilirubin NEGATIVE Urine Ketones NEGATIVE Urine Specific [place] 1.025 Urine pH 5.5 Urine Protein NEGATIVE Urine Urobilinogen 0.2 E.U./dL Urine Nitrate POSITIVE Urine Leukocyte Esterase 1+ Urine Glucose (Auto)(UA) NEGATIVE Urine Blood NEGATIVE Urine RBC 2-5 RBC/HPF Urine WBC TooNumerousToCount WBC/HPF Urine Squamous Epithelial Cells FEW Urine Bacteria MANY White Blood Count 19.6 10^3/uL Red Blood Count 3.61 10^6/uL Hemoglobin 11.2 g/dL Hematocrit 36.1 % Mean Corpuscular Volume 100.0 fL Mean Corpuscular Hemoglobin 31.0 pg Mean Corpuscular Hemoglobin Concent 31.0 g/dL Red Cell Distribution Width 15.6 % Platelet Count 321 10^3/uL Mean Platelet Volume 10.1 fL Neutrophils (%) (Auto) 91.2 % Lymphocytes (%) (Auto) 3.5 % Monocytes (%) (Auto) 4.6 % Neutrophils # (Auto) 17.9 10^3/uL Lymphocytes # (Auto) 0.68 10^3/uL1 Monocytes # (Auto) 0.9 10^3/uL Absolute Immature Granulocyte (auto 0.10 10^3 u/L Absolute Eosinophils (auto) 0.0 10^3/uL Immature Granulocytes % 0.50 % Eosinophils % 0.0 % Basophils % 0.2 % Basophils # 0.0 10^3/uL Sodium Level 141 mmol/L Potassium Level 4.1 mmol/L Chloride Level 105.0 mmol/L Carbon Dioxide Level 28.9 mmol/L Anion Gap 11.2 Blood Urea Nitrogen 16 mg/dL Creatinine 1.34 mg/dL Estimated GFR () 46.7 Est GFR (CKD-EPI)(Non-Afr [place]) 38.6 BUN/Creatinine Ratio 11.0 Glucose Level 100 mg/dL Lactic Acid Level 1.8 mmol/L Calcium Level 8.4 mg/dL Total Bilirubin 0.5 mg/dL Aspartate Amino Transf (AST/SGOT) 25 U/L Alanine Aminotransferase (ALT/SGPT) 23 U/L Alkaline Phosphatase 90 U/L Total Protein 6.0 g/dL Albumin 2.6 g/dL Globulin 3.4 Albumin/Globulin Ratio 0.764 SARS-CoV-2 Antigen (Rapid) NEGATIVE Segmented Neutrophils 97 % Lymphocytes 2 % Monocytes 1 % Platelet Estimate ADEQUATE Platelet Morphology NORMAL Test 07/09/21 05:35 White Blood Count 19.0 10^3/uL Red Blood Count 3.28 10^6/uL Hemoglobin 10.1 g/dL Hematocrit 33.3 % Mean Corpuscular Volume 101.5 fL Mean Corpuscular Hemoglobin 30.8 pg Mean Corpuscular Hemoglobin Concent 30.3 g/dL Red Cell Distribution Width 15.8 % Platelet Count 279 10^3/uL Mean Platelet Volume 10.1 fL Neutrophils (%) (Auto) 86.7 % Lymphocytes (%) (Auto) 7.3 % Monocytes (%) (Auto) 5.2 % Neutrophils # (Auto) 16.5 10^3/uL Lymphocytes # (Auto) 1.39 10^3/uL1 Monocytes # (Auto) 1.0 10^3/uL Absolute Immature Granulocyte (auto 0.04 10^3 u/L Absolute Eosinophils (auto) 0.1 10^3/uL Immature Granulocytes % 0.20 % Eosinophils % 0.4 % Basophils % 0.2 % Basophils # 0.0 10^3/uL Sodium Level 141 mmol/L Potassium Level 3.9 mmol/L Chloride Level 109.0 mmol/L Carbon Dioxide Level 26.9 mmol/L Glucose Level 115 mg/dL Blood Urea Nitrogen 16 mg/dL Creatinine 1.08 mg/dL Calcium Level 7.9 mg/dL Anion Gap 9.0 Estimated GFR () 59.8 Est GFR (CKD-EPI)(Non-Afr [place]) 49.5 BUN/Creatinine Ratio 14.0 Current Medications Medications (Trade) Dose Ordered Sig/Mj Route PRN Reason Start Time Stop Time Status Last Admin Dose Admin Levofloxacin/ Dextrose 150 ml @ 100 mls/hr Q24HRS STAT IV 07/08/21 17:29 07/08/21 18:58 DC 07/08/21 19:40 Levofloxacin/ Dextrose 150 ml @ ud STK-MED ONCE IV 07/08/21 18:47 07/08/21 18:47 DC Sodium Chloride 1,000 ml @ ud STK-MED ONCE .ROUTE 07/08/21 19:08 07/08/21 19:08 DC Sodium Chloride 250 ml @ ud STK-MED ONCE .ROUTE 07/08/21 21:38 07/08/21 21:38 DC Vancomycin HCl 1 ml @ ud STK-MED ONCE .ROUTE 07/08/21 21:38 07/08/21 21:38 DC Ceftriaxone Sodium 1000 mg/ Sodium Chloride 100 ml @ 100 mls/hr Q24HRS IV 07/08/21 22:00 08/07/21 21:59 07/09/21 00:17 Dextrose/Sodium Chloride 1,000 ml @ 100 mls/hr Q10H IV 07/08/21 22:00 08/07/21 21:59 07/09/21 11:21 Sodium Chloride 100 ml @ ud STK-MED ONCE IV 07/08/21 23:44 07/08/21 23:44 DC Ceftriaxone Sodium (Rocephin) 1,000 mg STK-MED ONCE .ROUTE 07/08/21 23:44 07/08/21 23:45 DC Acetaminophen/ Hydrocodone Bitart ([place] 10mg) 1 each Q6H PRN PO PAIN 7 - 10 07/09/21 06:00 08/08/21 05:59 07/09/21 06:02 Course Sepsis Screening Results: Posi: POSITIVE Sepsis Qualifier/Stage: SEPSIS RISK Duration or Total Time Spent w: Unknown Vitals & review Data Vital Sign - Last 24 Hours 07/09/21 07/09/21 09:03 09:03 Pulse 77 Resp 18 18 Pulse Ox 92 85 O2 Delivery Nasal Cannula O2 Flow Rate 3.50 FiO2 35 Laboratory Tests Test 07/08/21 15:25 07/08/21 17:30 07/08/21 18:00 07/08/21 18:10 Urine Collection Type CATH Urine Color YELLOW Urine Appearance CLOUDY Urine Bilirubin NEGATIVE Urine Ketones NEGATIVE Urine Specific [place] 1.025 Urine pH 5.5 Urine Protein NEGATIVE Urine Urobilinogen 0.2 E.U./dL Urine Nitrate POSITIVE Urine Leukocyte Esterase 1+ Urine Glucose (Auto)(UA) NEGATIVE Urine Blood NEGATIVE Urine RBC 2-5 RBC/HPF Urine WBC TooNumerousToCount WBC/HPF Urine Squamous Epithelial Cells FEW Urine Bacteria MANY White Blood Count 19.6 10^3/uL Red Blood Count 3.61 10^6/uL Hemoglobin 11.2 g/dL Hematocrit 36.1 % Mean Corpuscular Volume 100.0 fL Mean Corpuscular Hemoglobin 31.0 pg Mean Corpuscular Hemoglobin Concent 31.0 g/dL Red Cell Distribution Width 15.6 % Platelet Count 321 10^3/uL Mean Platelet Volume 10.1 fL Neutrophils (%) (Auto) 91.2 % Lymphocytes (%) (Auto) 3.5 % Monocytes (%) (Auto) 4.6 % Neutrophils # (Auto) 17.9 10^3/uL Lymphocytes # (Auto) 0.68 10^3/uL1 Monocytes # (Auto) 0.9 10^3/uL Absolute Immature Granulocyte (auto 0.10 10^3 u/L Absolute Eosinophils (auto) 0.0 10^3/uL Immature Granulocytes % 0.50 % Eosinophils % 0.0 % Basophils % 0.2 % Basophils # 0.0 10^3/uL Sodium Level 141 mmol/L Potassium Level 4.1 mmol/L Chloride Level 105.0 mmol/L Carbon Dioxide Level 28.9 mmol/L Anion Gap 11.2 Blood Urea Nitrogen 16 mg/dL Creatinine 1.34 mg/dL Estimated GFR () 46.7 Est GFR (CKD-EPI)(Non-Afr Swedish) 38.6 BUN/Creatinine Ratio 11.0 Glucose Level 100 mg/dL Lactic Acid Level 1.8 mmol/L Calcium Level 8.4 mg/dL Total Bilirubin 0.5 mg/dL Aspartate Amino Transf (AST/SGOT) 25 U/L Alanine Aminotransferase (ALT/SGPT) 23 U/L Alkaline Phosphatase 90 U/L Total Protein 6.0 g/dL Albumin 2.6 g/dL Globulin 3.4 Albumin/Globulin Ratio 0.764 SARS-CoV-2 Antigen (Rapid) NEGATIVE Segmented Neutrophils 97 % Lymphocytes 2 % Monocytes 1 % Platelet Estimate ADEQUATE Platelet Morphology NORMAL Test 07/09/21 05:35 White Blood Count 19.0 10^3/uL Red Blood Count 3.28 10^6/uL Hemoglobin 10.1 g/dL Hematocrit 33.3 % Mean Corpuscular Volume 101.5 fL Mean Corpuscular Hemoglobin 30.8 pg Mean Corpuscular Hemoglobin Concent 30.3 g/dL Red Cell Distribution Width 15.8 % Platelet Count 279 10^3/uL Mean Platelet Volume 10.1 fL Neutrophils (%) (Auto) 86.7 % Lymphocytes (%) (Auto) 7.3 % Monocytes (%) (Auto) 5.2 % Neutrophils # (Auto) 16.5 10^3/uL Lymphocytes # (Auto) 1.39 10^3/uL1 Monocytes # (Auto) 1.0 10^3/uL Absolute Immature Granulocyte (auto 0.04 10^3 u/L Absolute Eosinophils (auto) 0.1 10^3/uL Immature Granulocytes % 0.20 % Eosinophils % 0.4 % Basophils % 0.2 % Basophils # 0.0 10^3/uL Sodium Level 141 mmol/L Potassium Level 3.9 mmol/L Chloride Level 109.0 mmol/L Carbon Dioxide Level 26.9 mmol/L Glucose Level 115 mg/dL Blood Urea Nitrogen 16 mg/dL Creatinine 1.08 mg/dL Calcium Level 7.9 mg/dL Anion Gap 9.0 Estimated GFR () 59.8 Est GFR (CKD-EPI)(Non-Afr Swedish) 49.5 BUN/Creatinine Ratio 14.0 Current Medications Medications (Trade) Dose Ordered Sig/Mj PRN Reason Start Time Stop Time Status Last Admin Acetaminophen/ Hydrocodone Bitart ([place] 10mg) 1 each Q6H PRN PAIN 7 - 10 07/09/21 06:00 08/08/21 05:59 07/09/21 06:02 Ceftriaxone Sodium 1000 mg/ Sodium Chloride 100 ml @ 100 mls/hr Q24HRS 07/08/21 22:00 08/07/21 21:59 07/09/21 00:17 Dextrose/Sodium Chloride 1,000 ml @ 100 mls/hr Q10H 07/08/21 22:00 08/07/21 21:59 07/09/21 11:21 LEVEL 1 SEPSIS INFECTION CRITE: ABX Therapy, Urinary Tract Infection LEVEL 2-SIRS (LIST ALL THAT AP: [id number] Cardiovascular Evidence: Not Assessed or None Hematologic Evidence: None/Not assessed Hepatic Evidence: None/Not assessed Metabolic Evidence: None/Not assessed Neurological Evidence: None/Not assessed Respiratory Evidence: Need for O2 to keep>90% Renal Evidence: None/Not assessed O2 Sat by Pulse Oximetry: 96 Respiratory End-tidal CO2: 96 Oxygen Flow Rate: 3.00 Assessment/Plan Assessment/Plan Problems: (1) Nausea & vomiting Status: Acute Assessment & Plan: No better, presumed source is infection, however this should be improving as the patient is on antibiotics. We will increase his Zofran to 8 mg every 6 hours IV And continue with IV fluids until the patient is tolerating oral intake ICD Code: R11.2 - Nausea with vomiting, unspecified SNOMED: 32791725 (2) Atrial fibrillation Status: Chronic Assessment & Plan: Currently rate controlled on low-dose metoprolol, continue apixaban prophylaxis ICD Code: I48.91 - Unspecified atrial fibrillation SNOMED: 99075252 (3) UTI (urinary tract infection) Status: Acute Assessment & Plan: Will transition over to Levaquin, awaiting final speciation and sensitivities ICD Code: N39.0 - Urinary tract infection, site not specified SNOMED: 08545290 (4) Morbid obesity with BMI of 40.0-44.9, adult Status: Chronic Assessment & Plan: Counseled on weight loss ICD Code: E66.01 - Morbid (severe) obesity due to excess calories; Z68.41 - Body mass index [BMI] 40.0-44.9, adult SNOMED: 324945334, 286873130, [id number] (5) CAD (coronary artery disease) Status: Chronic Assessment & Plan: Secondary prophylaxis on aspirin and statin ICD Code: I25.10 - Atherosclerotic heart disease of [place] coronary artery without angina pectoris SNOMED: 76245649 LAMAR SIMPSON MD Jul 10, 2021 10:50
[2021-07-10 12:33] VITALS: BP 131/74
[2021-07-10] MEDS: BENADRYL PO PRN ×2 (16:25→22:18)
[2021-07-10 16:40] VITALS: BP 119/75
[2021-07-10 19:38] VITALS: BP 132/75
[2021-07-11] VITALS: BP 125/71
[2021-07-11] MEDS: ZOFRAN IV SCH ×4 (01:44→18:40)
[2021-07-11 04:00] VITALS: BP 114/63
[2021-07-11] MEDS: NORCO 10MG PO PRN ×2 (06:52→18:40)
[2021-07-11] MEDS: BENADRYL PO PRN ×2 (06:52→18:40)
[2021-07-11 07:10] VITALS: BP 131/69
[2021-07-11] MEDS: DUO 0.5-3(2.5) MG/3 ML IH SCH ×4 (08:08→20:51)
[2021-07-11] MEDS: NYSTOP TP SCH ×2 (09:45→21:04)
[2021-07-11] MEDS: ELIQUIS PO SCH ×2 (09:45→21:04)
[2021-07-11] MEDS: LEVAQUIN PO SCH (09:45)
[2021-07-11] MEDS: LOPRESSER PO SCH ×2 (09:45→21:04)
[2021-07-11 12:01] VITALS: BP 140/81
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
[2021-07-11 15:15] VITALS: BP 139/75
[2021-07-11] MEDS: D5NS 1,000 ML IV SCH ×2 (15:54→20:00)
[2021-07-11] MEDS ORDERED: LEVO750T5 PO (18:12)
[2021-07-11] MEDS ORDERED: ONDA8TAB16 PO (18:12)
--- NOTE | 2021-07-11 18:16 | PRM.DC ---
Discharge Summary Date of Discharge: Jul 11, 2021 Time of Request to Discharge: 18:15 Reason for Visit: Malaise fatigue and nausea of all Hospital Course Ms. Baldwin is a very pleasant 75-year-old female who presents with malaise fatigue and intractable nausea and emesis. The patient was found to have a urinary tract infection, was started on empiric Rocephin which was transitioned over to Levaquin once sensitivities revealed that it was sensitive only to that and a few other agents. The patient's nausea slowly improved on scheduled Zo fany, and after she was able to tolerate oral intake she was discharged home to complete an additional 6 days of Levaquin. Patient History: Asthma G8 MOTHER Chronic obstructive pulmonary disease G8 MOTHER FH: alcoholism G8 MOTHER No known health problems G8 FATHER 19 CHILD 19 CHILD 19 CHILD 19 CHILD 19 CHILD General: Alert, Oriented X3, Cooperative HEENT: PERRLA, EOMI Neck: No JVD, No thyromegaly Lungs: Clear to auscultation, Normal air movement Heart: Regular rate, Normal S1, Normal S2 Abdomen: Normal bowel sounds, Soft Extremities: No clubbing, No cyanosis Skin: No rashes, No breakdown Neuro: Normal gait, Normal speech Psych/Mental Status: Mental status NL, Mood NL Scheduled Albuterol Sulfate (Proair Respiclick), 90 MCG IH Q4, (Reported) Amiodarone HCl (Amiodarone HCl), 2 TAB PO QD, (Reported) Aspirin (Aspirin), 81 MG PO DAILY24 Budesonide/Formoterol Fumarate (Symbicort 160-4.5 Mcg Inhaler), 2 PUFF IH DAILY24, (Reported) Buspirone Hcl (Buspirone Hcl), 1 TAB PO TID, (Reported) Cefdinir (Cefdinir), 1 CAP PO BID, (Reported) Doxycycline Hyclate (Doxycycline Hyclate), 1 CAP PO BID, (Reported) Fluticasone Propionate (Fluticasone Propionate), 1 SPR NA DAILY, (Reported) Gabapentin (Neurontin), 1 CAP PO TID, (Reported) Levofloxacin (Levaquin), 750 MG PO DAILY Montelukast Sodium (Montelukast Sodium), 1 TAB PO DAILY, (Reported) Ondansetron (Ondansetron Odt), 8 MG PO Q8H Pantoprazole Sodium (Pantoprazole Sodium), 20 MG PO DAILY24, (Reported) Pravastatin Sodium (Pravastatin Sodium), 1 TAB PO DAILY Rivaroxaban (Xarelto), 1 TAB PO DAILY24, (Reported) Vilazodone Hydrochloride (Viibryd), 1 TAB PO DAILY, (Reported) Scheduled PRN Diclofenac Sodium (Diclofenac Sodium), 100 GM TP Q6HR PRN for PAIN 1 - 3, (Reported) Sepsis Evaluation @ Discharge Vital Sign - Last 24 Hours 07/09/21 07/09/21 09:03 09:03 Pulse 77 Resp 18 18 Pulse Ox 92 85 O2 Delivery Nasal Cannula O2 Flow Rate 3.50 FiO2 35 Laboratory Tests Test 07/08/21 15:25 07/08/21 17:30 07/08/21 18:00 07/08/21 18:10 Urine Collection Type CATH Urine Color YELLOW Urine Appearance CLOUDY Urine Bilirubin NEGATIVE Urine Ketones NEGATIVE Urine Specific [place] 1.025 Urine pH 5.5 Urine Protein NEGATIVE Urine Urobilinogen 0.2 E.U./dL Urine Nitrate POSITIVE Urine Leukocyte Esterase 1+ Urine Glucose (Auto)(UA) NEGATIVE Urine Blood NEGATIVE Urine RBC 2-5 RBC/HPF Urine WBC TooNumerousToCount WBC/HPF Urine Squamous Epithelial Cells FEW Urine Bacteria MANY White Blood Count 19.6 10^3/uL Red Blood Count 3.61 10^6/uL Hemoglobin 11.2 g/dL Hematocrit 36.1 % Mean Corpuscular Volume 100.0 fL Mean Corpuscular Hemoglobin 31.0 pg Mean Corpuscular Hemoglobin Concent 31.0 g/dL Red Cell Distribution Width 15.6 % Platelet Count 321 10^3/uL Mean Platelet Volume 10.1 fL Neutrophils (%) (Auto) 91.2 % Lymphocytes (%) (Auto) 3.5 % Monocytes (%) (Auto) 4.6 % Neutrophils # (Auto) 17.9 10^3/uL Lymphocytes # (Auto) 0.68 10^3/uL1 Monocytes # (Auto) 0.9 10^3/uL Absolute Immature Granulocyte (auto 0.10 10^3 u/L Absolute Eosinophils (auto) 0.0 10^3/uL Immature Granulocytes % 0.50 % Eosinophils % 0.0 % Basophils % 0.2 % Basophils # 0.0 10^3/uL Sodium Level 141 mmol/L Potassium Level 4.1 mmol/L Chloride Level 105.0 mmol/L Carbon Dioxide Level 28.9 mmol/L Anion Gap 11.2 Blood Urea Nitrogen 16 mg/dL Creatinine 1.34 mg/dL Estimated GFR () 46.7 Est GFR (CKD-EPI)(Non-Afr [place] Islander) 38.6 BUN/Creatinine Ratio 11.0 Glucose Level 100 mg/dL Lactic Acid Level 1.8 mmol/L Calcium Level 8.4 mg/dL Total Bilirubin 0.5 mg/dL Aspartate Amino Transf (AST/SGOT) 25 U/L Alanine Aminotransferase (ALT/SGPT) 23 U/L Alkaline Phosphatase 90 U/L Total Protein 6.0 g/dL Albumin 2.6 g/dL Globulin 3.4 Albumin/Globulin Ratio 0.764 SARS-CoV-2 Antigen (Rapid) NEGATIVE Segmented Neutrophils 97 % Lymphocytes 2 % Monocytes 1 % Platelet Estimate ADEQUATE Platelet Morphology NORMAL Test 07/09/21 05:35 White Blood Count 19.0 10^3/uL Red Blood Count 3.28 10^6/uL Hemoglobin 10.1 g/dL Hematocrit 33.3 % Mean Corpuscular Volume 101.5 fL Mean Corpuscular Hemoglobin 30.8 pg Mean Corpuscular Hemoglobin Concent 30.3 g/dL Red Cell Distribution Width 15.8 % Platelet Count 279 10^3/uL Mean Platelet Volume 10.1 fL Neutrophils (%) (Auto) 86.7 % Lymphocytes (%) (Auto) 7.3 % Monocytes (%) (Auto) 5.2 % Neutrophils # (Auto) 16.5 10^3/uL Lymphocytes # (Auto) 1.39 10^3/uL1 Monocytes # (Auto) 1.0 10^3/uL Absolute Immature Granulocyte (auto 0.04 10^3 u/L Absolute Eosinophils (auto) 0.1 10^3/uL Immature Granulocytes % 0.20 % Eosinophils % 0.4 % Basophils % 0.2 % Basophils # 0.0 10^3/uL Sodium Level 141 mmol/L Potassium Level 3.9 mmol/L Chloride Level 109.0 mmol/L Carbon Dioxide Level 26.9 mmol/L Glucose Level 115 mg/dL Blood Urea Nitrogen 16 mg/dL Creatinine 1.08 mg/dL Calcium Level 7.9 mg/dL Anion Gap 9.0 Estimated GFR () 59.8 Est GFR (CKD-EPI)(Non-Afr [place]er) 49.5 BUN/Creatinine Ratio 14.0 Current Medications Medications (Trade) Dose Ordered Sig/Mj PRN Reason Start Time Stop Time Status Last Admin Acetaminophen/ Hydrocodone Bitart ([place] 10mg) 1 each Q6H PRN PAIN 7 - 10 07/09/21 06:00 08/08/21 05:59 07/09/21 06:02 Ceftriaxone Sodium 1000 mg/ Sodium Chloride 100 ml @ 100 mls/hr Q24HRS 07/08/21 22:00 08/07/21 21:59 07/09/21 00:17 Dextrose/Sodium Chloride 1,000 ml @ 100 mls/hr Q10H 07/08/21 22:00 08/07/21 21:59 07/09/21 11:21 Course Sepsis Screening Results: Posi: POSITIVE Sepsis Qualifier/Stage: SEPSIS RISK Duration or Total Time Spent w: Unknown Vitals & review Data Vital Sign - Last 24 Hours 07/09/21 07/09/21 09:03 09:03 Pulse 77 Resp 18 18 Pulse Ox 92 85 O2 Delivery Nasal Cannula O2 Flow Rate 3.50 FiO2 35 Laboratory Tests Test 07/08/21 15:25 07/08/21 17:30 07/08/21 18:00 07/08/21 18:10 Urine Collection Type CATH Urine Color YELLOW Urine Appearance CLOUDY Urine Bilirubin NEGATIVE Urine Ketones NEGATIVE Urine Specific [place] 1.025 Urine pH 5.5 Urine Protein NEGATIVE Urine Urobilinogen 0.2 E.U./dL Urine Nitrate POSITIVE Urine Leukocyte Esterase 1+ Urine Glucose (Auto)(UA) NEGATIVE Urine Blood NEGATIVE Urine RBC 2-5 RBC/HPF Urine WBC TooNumerousToCount WBC/HPF Urine Squamous Epithelial Cells FEW Urine Bacteria MANY White Blood Count 19.6 10^3/uL Red Blood Count 3.61 10^6/uL Hemoglobin 11.2 g/dL Hematocrit 36.1 % Mean Corpuscular Volume 100.0 fL Mean Corpuscular Hemoglobin 31.0 pg Mean Corpuscular Hemoglobin Concent 31.0 g/dL Red Cell Distribution Width 15.6 % Platelet Count 321 10^3/uL Mean Platelet Volume 10.1 fL Neutrophils (%) (Auto) 91.2 % Lymphocytes (%) (Auto) 3.5 % Monocytes (%) (Auto) 4.6 % Neutrophils # (Auto) 17.9 10^3/uL Lymphocytes # (Auto) 0.68 10^3/uL1 Monocytes # (Auto) 0.9 10^3/uL Absolute Immature Granulocyte (auto 0.10 10^3 u/L Absolute Eosinophils (auto) 0.0 10^3/uL Immature Granulocytes % 0.50 % Eosinophils % 0.0 % Basophils % 0.2 % Basophils # 0.0 10^3/uL Sodium Level 141 mmol/L Potassium Level 4.1 mmol/L Chloride Level 105.0 mmol/L Carbon Dioxide Level 28.9 mmol/L Anion Gap 11.2 Blood Urea Nitrogen 16 mg/dL Creatinine 1.34 mg/dL Estimated GFR () 46.7 Est GFR (CKD-EPI)(Non-Afr [place]) 38.6 BUN/Creatinine Ratio 11.0 Glucose Level 100 mg/dL Lactic Acid Level 1.8 mmol/L Calcium Level 8.4 mg/dL Total Bilirubin 0.5 mg/dL Aspartate Amino Transf (AST/SGOT) 25 U/L Alanine Aminotransferase (ALT/SGPT) 23 U/L Alkaline Phosphatase 90 U/L Total Protein 6.0 g/dL Albumin 2.6 g/dL Globulin 3.4 Albumin/Globulin Ratio 0.764 SARS-CoV-2 Antigen (Rapid) NEGATIVE Segmented Neutrophils 97 % Lymphocytes 2 % Monocytes 1 % Platelet Estimate ADEQUATE Platelet Morphology NORMAL Test 07/09/21 05:35 White Blood Count 19.0 10^3/uL Red Blood Count 3.28 10^6/uL Hemoglobin 10.1 g/dL Hematocrit 33.3 % Mean Corpuscular Volume 101.5 fL Mean Corpuscular Hemoglobin 30.8 pg Mean Corpuscular Hemoglobin Concent 30.3 g/dL Red Cell Distribution Width 15.8 % Platelet Count 279 10^3/uL Mean Platelet Volume 10.1 fL Neutrophils (%) (Auto) 86.7 % Lymphocytes (%) (Auto) 7.3 % Monocytes (%) (Auto) 5.2 % Neutrophils # (Auto) 16.5 10^3/uL Lymphocytes # (Auto) 1.39 10^3/uL1 Monocytes # (Auto) 1.0 10^3/uL Absolute Immature Granulocyte (auto 0.04 10^3 u/L Absolute Eosinophils (auto) 0.1 10^3/uL Immature Granulocytes % 0.20 % Eosinophils % 0.4 % Basophils % 0.2 % Basophils # 0.0 10^3/uL Sodium Level 141 mmol/L Potassium Level 3.9 mmol/L Chloride Level 109.0 mmol/L Carbon Dioxide Level 26.9 mmol/L Glucose Level 115 mg/dL Blood Urea Nitrogen 16 mg/dL Creatinine 1.08 mg/dL Calcium Level 7.9 mg/dL Anion Gap 9.0 Estimated GFR () 59.8 Est GFR (CKD-EPI)(Non-Afr [place]) 49.5 BUN/Creatinine Ratio 14.0 Current Medications Medications (Trade) Dose Ordered Sig/Mj PRN Reason Start Time Stop Time Status Last Admin Acetaminophen/ Hydrocodone Bitart ([place] 10mg) 1 each Q6H PRN PAIN 7 - 10 07/09/21 06:00 08/08/21 05:59 07/09/21 06:02 Ceftriaxone Sodium 1000 mg/ Sodium Chloride 100 ml @ 100 mls/hr Q24HRS 07/08/21 22:00 08/07/21 21:59 07/09/21 00:17 Dextrose/Sodium Chloride 1,000 ml @ 100 mls/hr Q10H 07/08/21 22:00 08/07/21 21:59 07/09/21 11:21 LEVEL 1 SEPSIS INFECTION CRITE: ABX Therapy, Urinary Tract Infection LEVEL 2-SIRS (LIST ALL THAT AP: [id number] Cardiovascular Evidence: Not Assessed or None Hematologic Evidence: None/Not assessed Hepatic Evidence: None/Not assessed Metabolic Evidence: None/Not assessed Neurological Evidence: None/Not assessed Respiratory Evidence: Need for O2 to keep>90%, O2 SAT<90room air Renal Evidence: None/Not assessed O2 Sat by Pulse Oximetry: 97 Respiratory End-tidal CO2: 96 Oxygen Flow Rate: 3.00 LAMAR SIMPSON MD Jul 11, 2021 18:16
--- NOTE | 2021-07-11 19:27 | PRM.PN ---
Subjective Subjective Date: Jul 11, 2021 Time: 19:26 Subjective Mrs. Baldwin Reports that her nausea is improved, was able to tolerate water and juice today Patient History: Asthma G8 MOTHER Chronic obstructive pulmonary disease G8 MOTHER FH: alcoholism G8 MOTHER No known health problems G8 FATHER 19 CHILD 19 CHILD 19 CHILD 19 CHILD 19 CHILD VTE VTE Risk Total Score: 2 VTE Risk Score VTE Risk: Score 0-1 = Low Risk (Aggressive mobilization; early ambulation; no VTE prophylaxis required) Score 2: Moderate Risk (Intermittent/Pneumatic Compression Device OR Lovenox/Heparin/Coumadin) Score 3-4: High Risk (Intermittent/Pneumatic Compression Device AND Lovenox/Heparin/Coumadin) Score > or =5: Highest Risk (Intermittent/Pneumatic Compression Device AND Lovenox/Heparin/Coumadin) Antico:Hep/LMWH/Coum/Xarelto: Yes Mechanical device ordered: No Review of Systems Musculoskeletal: leg pain Allergies: Coded Allergies: sulfamethoxazole (Verified Allergy, Intermediate, 03/24/21) trimethoprim (Verified Allergy, Intermediate, 03/24/21) Penicillins (Verified Allergy, Unknown, Rash, 03/23/21) fentanyl (Verified Allergy, Unknown, 03/23/21) hydromorphone (Verified Allergy, Unknown, 03/23/21) Scheduled Albuterol Sulfate (Proair Respiclick), 90 MCG IH Q4, (Reported) Amiodarone HCl (Amiodarone HCl), 2 TAB PO QD, (Reported) Aspirin (Aspirin), 81 MG PO DAILY24 Budesonide/Formoterol Fumarate (Symbicort 160-4.5 Mcg Inhaler), 2 PUFF IH DAILY24, (Reported) Buspirone Hcl (Buspirone Hcl), 1 TAB PO TID, (Reported) Cefdinir (Cefdinir), 1 CAP PO BID, (Reported) Doxycycline Hyclate (Doxycycline Hyclate), 1 CAP PO BID, (Reported) Fluticasone Propionate (Fluticasone Propionate), 1 SPR NA DAILY, (Reported) Gabapentin (Neurontin), 1 CAP PO TID, (Reported) Levofloxacin (Levaquin), 750 MG PO DAILY Montelukast Sodium (Montelukast Sodium), 1 TAB PO DAILY, (Reported) Ondansetron (Ondansetron Odt), 8 MG PO Q8H Pantoprazole Sodium (Pantoprazole Sodium), 20 MG PO DAILY24, (Reported) Pravastatin Sodium (Pravastatin Sodium), 1 TAB PO DAILY Rivaroxaban (Xarelto), 1 TAB PO DAILY24, (Reported) Vilazodone Hydrochloride (Viibryd), 1 TAB PO DAILY, (Reported) Scheduled PRN Diclofenac Sodium (Diclofenac Sodium), 100 GM TP Q6HR PRN for PAIN 1 - 3, (Reported) Objective Vitals and I/O Vital Sign - Last 24 Hours 07/11/21 07/11/21 07/11/21 07/11/21 07:10 08:08 08:10 08:18 Temp 98.3 Pulse 86 80 80 81 Resp 19 18 18 18 B/P (MAP) 131/69 (89) Pulse Ox 96 97 97 98 O2 Delivery Nasal Cannula O2 Flow Rate 3.00 FiO2 32 07/11/21 07/11/21 07/11/21 07/11/21 09:45 12:01 13:54 13:55 Temp 97.9 Pulse 81 86 84 84 Resp 18 20 20 B/P (MAP) 131/69 140/81 (100) Pulse Ox 99 97 07/11/21 07/11/21 07/11/21 07/11/21 15:15 16:58 17:02 17:07 Temp 97.7 Pulse 78 77 76 Resp 17 17 16 B/P (MAP) 139/75 (96) Pulse Ox 93 97 97 O2 Delivery Nasal Cannula O2 Flow Rate 3.00 General: Alert, Oriented X3, Cooperative HEENT: PERRLA, EOMI Neck: No JVD, No thyromegaly Lungs: Clear to auscultation, Normal air movement Heart: Regular rate, Normal S1, Normal S2 Abdomen: Normal bowel sounds, Soft Extremities: No clubbing, No cyanosis Skin: No rashes, No breakdown Neuro: Normal gait, Normal speech Psych/Mental Status: Mental status NL, Mood NL All Results(Lab/Rad) Laboratory Tests Test 07/08/21 15:25 07/08/21 17:30 07/08/21 18:00 07/08/21 18:10 Urine Collection Type CATH Urine Color YELLOW Urine Appearance CLOUDY Urine Bilirubin NEGATIVE Urine Ketones NEGATIVE Urine Specific [place] 1.025 Urine pH 5.5 Urine Protein NEGATIVE Urine Urobilinogen 0.2 E.U./dL Urine Nitrate POSITIVE Urine Leukocyte Esterase 1+ Urine Glucose (Auto)(UA) NEGATIVE Urine Blood NEGATIVE Urine RBC 2-5 RBC/HPF Urine WBC TooNumerousToCount WBC/HPF Urine Squamous Epithelial Cells FEW Urine Bacteria MANY White Blood Count 19.6 10^3/uL Red Blood Count 3.61 10^6/uL Hemoglobin 11.2 g/dL Hematocrit 36.1 % Mean Corpuscular Volume 100.0 fL Mean Corpuscular Hemoglobin 31.0 pg Mean Corpuscular Hemoglobin Concent 31.0 g/dL Red Cell Distribution Width 15.6 % Platelet Count 321 10^3/uL Mean Platelet Volume 10.1 fL Neutrophils (%) (Auto) 91.2 % Lymphocytes (%) (Auto) 3.5 % Monocytes (%) (Auto) 4.6 % Neutrophils # (Auto) 17.9 10^3/uL Lymphocytes # (Auto) 0.68 10^3/uL1 Monocytes # (Auto) 0.9 10^3/uL Absolute Immature Granulocyte (auto 0.10 10^3 u/L Absolute Eosinophils (auto) 0.0 10^3/uL Immature Granulocytes % 0.50 % Eosinophils % 0.0 % Basophils % 0.2 % Basophils # 0.0 10^3/uL Sodium Level 141 mmol/L Potassium Level 4.1 mmol/L Chloride Level 105.0 mmol/L Carbon Dioxide Level 28.9 mmol/L Anion Gap 11.2 Blood Urea Nitrogen 16 mg/dL Creatinine 1.34 mg/dL Estimated GFR () 46.7 Est GFR (CKD-EPI)(Non-Afr [place]) 38.6 BUN/Creatinine Ratio 11.0 Glucose Level 100 mg/dL Lactic Acid Level 1.8 mmol/L Calcium Level 8.4 mg/dL Total Bilirubin 0.5 mg/dL Aspartate Amino Transf (AST/SGOT) 25 U/L Alanine Aminotransferase (ALT/SGPT) 23 U/L Alkaline Phosphatase 90 U/L Total Protein 6.0 g/dL Albumin 2.6 g/dL Globulin 3.4 Albumin/Globulin Ratio 0.764 SARS-CoV-2 Antigen (Rapid) NEGATIVE Segmented Neutrophils 97 % Lymphocytes 2 % Monocytes 1 % Platelet Estimate ADEQUATE Platelet Morphology NORMAL Test 07/09/21 05:35 White Blood Count 19.0 10^3/uL Red Blood Count 3.28 10^6/uL Hemoglobin 10.1 g/dL Hematocrit 33.3 % Mean Corpuscular Volume 101.5 fL Mean Corpuscular Hemoglobin 30.8 pg Mean Corpuscular Hemoglobin Concent 30.3 g/dL Red Cell Distribution Width 15.8 % Platelet Count 279 10^3/uL Mean Platelet Volume 10.1 fL Neutrophils (%) (Auto) 86.7 % Lymphocytes (%) (Auto) 7.3 % Monocytes (%) (Auto) 5.2 % Neutrophils # (Auto) 16.5 10^3/uL Lymphocytes # (Auto) 1.39 10^3/uL1 Monocytes # (Auto) 1.0 10^3/uL Absolute Immature Granulocyte (auto 0.04 10^3 u/L Absolute Eosinophils (auto) 0.1 10^3/uL Immature Granulocytes % 0.20 % Eosinophils % 0.4 % Basophils % 0.2 % Basophils # 0.0 10^3/uL Sodium Level 141 mmol/L Potassium Level 3.9 mmol/L Chloride Level 109.0 mmol/L Carbon Dioxide Level 26.9 mmol/L Glucose Level 115 mg/dL Blood Urea Nitrogen 16 mg/dL Creatinine 1.08 mg/dL Calcium Level 7.9 mg/dL Anion Gap 9.0 Estimated GFR () 59.8 Est GFR (CKD-EPI)(Non-Afr [place]) 49.5 BUN/Creatinine Ratio 14.0 Current Medications Medications (Trade) Dose Ordered Sig/Mj Route PRN Reason Start Time Stop Time Status Last Admin Dose Admin Levofloxacin/ Dextrose 150 ml @ 100 mls/hr Q24HRS STAT IV 07/08/21 17:29 07/08/21 18:58 DC 07/08/21 19:40 Levofloxacin/ Dextrose 150 ml @ ud STK-MED ONCE IV 07/08/21 18:47 07/08/21 18:47 DC Sodium Chloride 1,000 ml @ ud STK-MED ONCE .ROUTE 07/08/21 19:08 07/08/21 19:08 DC Sodium Chloride 250 ml @ ud STK-MED ONCE .ROUTE 07/08/21 21:38 07/08/21 21:38 DC Vancomycin HCl 1 ml @ ud STK-MED ONCE .ROUTE 07/08/21 21:38 07/08/21 21:38 DC Ceftriaxone Sodium 1000 mg/ Sodium Chloride 100 ml @ 100 mls/hr Q24HRS IV 07/08/21 22:00 08/07/21 21:59 07/09/21 00:17 Dextrose/Sodium Chloride 1,000 ml @ 100 mls/hr Q10H IV 07/08/21 22:00 08/07/21 21:59 07/09/21 11:21 Sodium Chloride 100 ml @ ud STK-MED ONCE IV 07/08/21 23:44 07/08/21 23:44 DC Ceftriaxone Sodium (Rocephin) 1,000 mg STK-MED ONCE .ROUTE 07/08/21 23:44 07/08/21 23:45 DC Acetaminophen/ Hydrocodone Bitart ([place] 10mg) 1 each Q6H PRN PO PAIN 7 - 10 07/09/21 06:00 08/08/21 05:59 07/09/21 06:02 Course Sepsis Screening Results: Posi: POSITIVE Sepsis Qualifier/Stage: SEPSIS RISK Duration or Total Time Spent w: Unknown Vitals & review Data Vital Sign - Last 24 Hours 07/09/21 07/09/21 09:03 09:03 Pulse 77 Resp 18 18 Pulse Ox 92 85 O2 Delivery Nasal Cannula O2 Flow Rate 3.50 FiO2 35 Laboratory Tests Test 07/08/21 15:25 07/08/21 17:30 07/08/21 18:00 07/08/21 18:10 Urine Collection Type CATH Urine Color YELLOW Urine Appearance CLOUDY Urine Bilirubin NEGATIVE Urine Ketones NEGATIVE Urine Specific [place] 1.025 Urine pH 5.5 Urine Protein NEGATIVE Urine Urobilinogen 0.2 E.U./dL Urine Nitrate POSITIVE Urine Leukocyte Esterase 1+ Urine Glucose (Auto)(UA) NEGATIVE Urine Blood NEGATIVE Urine RBC 2-5 RBC/HPF Urine WBC TooNumerousToCount WBC/HPF Urine Squamous Epithelial Cells FEW Urine Bacteria MANY White Blood Count 19.6 10^3/uL Red Blood Count 3.61 10^6/uL Hemoglobin 11.2 g/dL Hematocrit 36.1 % Mean Corpuscular Volume 100.0 fL Mean Corpuscular Hemoglobin 31.0 pg Mean Corpuscular Hemoglobin Concent 31.0 g/dL Red Cell Distribution Width 15.6 % Platelet Count 321 10^3/uL Mean Platelet Volume 10.1 fL Neutrophils (%) (Auto) 91.2 % Lymphocytes (%) (Auto) 3.5 % Monocytes (%) (Auto) 4.6 % Neutrophils # (Auto) 17.9 10^3/uL Lymphocytes # (Auto) 0.68 10^3/uL1 Monocytes # (Auto) 0.9 10^3/uL Absolute Immature Granulocyte (auto 0.10 10^3 u/L Absolute Eosinophils (auto) 0.0 10^3/uL Immature Granulocytes % 0.50 % Eosinophils % 0.0 % Basophils % 0.2 % Basophils # 0.0 10^3/uL Sodium Level 141 mmol/L Potassium Level 4.1 mmol/L Chloride Level 105.0 mmol/L Carbon Dioxide Level 28.9 mmol/L Anion Gap 11.2 Blood Urea Nitrogen 16 mg/dL Creatinine 1.34 mg/dL Estimated GFR () 46.7 Est GFR (CKD-EPI)(Non-Afr Kyrgyz) 38.6 BUN/Creatinine Ratio 11.0 Glucose Level 100 mg/dL Lactic Acid Level 1.8 mmol/L Calcium Level 8.4 mg/dL Total Bilirubin 0.5 mg/dL Aspartate Amino Transf (AST/SGOT) 25 U/L Alanine Aminotransferase (ALT/SGPT) 23 U/L Alkaline Phosphatase 90 U/L Total Protein 6.0 g/dL Albumin 2.6 g/dL Globulin 3.4 Albumin/Globulin Ratio 0.764 SARS-CoV-2 Antigen (Rapid) NEGATIVE Segmented Neutrophils 97 % Lymphocytes 2 % Monocytes 1 % Platelet Estimate ADEQUATE Platelet Morphology NORMAL Test 07/09/21 05:35 White Blood Count 19.0 10^3/uL Red Blood Count 3.28 10^6/uL Hemoglobin 10.1 g/dL Hematocrit 33.3 % Mean Corpuscular Volume 101.5 fL Mean Corpuscular Hemoglobin 30.8 pg Mean Corpuscular Hemoglobin Concent 30.3 g/dL Red Cell Distribution Width 15.8 % Platelet Count 279 10^3/uL Mean Platelet Volume 10.1 fL Neutrophils (%) (Auto) 86.7 % Lymphocytes (%) (Auto) 7.3 % Monocytes (%) (Auto) 5.2 % Neutrophils # (Auto) 16.5 10^3/uL Lymphocytes # (Auto) 1.39 10^3/uL1 Monocytes # (Auto) 1.0 10^3/uL Absolute Immature Granulocyte (auto 0.04 10^3 u/L Absolute Eosinophils (auto) 0.1 10^3/uL Immature Granulocytes % 0.20 % Eosinophils % 0.4 % Basophils % 0.2 % Basophils # 0.0 10^3/uL Sodium Level 141 mmol/L Potassium Level 3.9 mmol/L Chloride Level 109.0 mmol/L Carbon Dioxide Level 26.9 mmol/L Glucose Level 115 mg/dL Blood Urea Nitrogen 16 mg/dL Creatinine 1.08 mg/dL Calcium Level 7.9 mg/dL Anion Gap 9.0 Estimated GFR () 59.8 Est GFR (CKD-EPI)(Non-Afr Kyrgyz) 49.5 BUN/Creatinine Ratio 14.0 Current Medications Medications (Trade) Dose Ordered Sig/Mj PRN Reason Start Time Stop Time Status Last Admin Acetaminophen/ Hydrocodone Bitart ([place] 10mg) 1 each Q6H PRN PAIN 7 - 10 07/09/21 06:00 08/08/21 05:59 07/09/21 06:02 Ceftriaxone Sodium 1000 mg/ Sodium Chloride 100 ml @ 100 mls/hr Q24HRS 07/08/21 22:00 08/07/21 21:59 07/09/21 00:17 Dextrose/Sodium Chloride 1,000 ml @ 100 mls/hr Q10H 07/08/21 22:00 08/07/21 21:59 07/09/21 11:21 LEVEL 1 SEPSIS INFECTION CRITE: ABX Therapy, Urinary Tract Infection LEVEL 2-SIRS (LIST ALL THAT AP: [id number] Cardiovascular Evidence: Not Assessed or None Hematologic Evidence: None/Not assessed Hepatic Evidence: None/Not assessed Metabolic Evidence: None/Not assessed Neurological Evidence: None/Not assessed Respiratory Evidence: Need for O2 to keep>90%, O2 SAT<90room air Renal Evidence: None/Not assessed O2 Sat by Pulse Oximetry: 97 Respiratory End-tidal CO2: 96 Oxygen Flow Rate: 3.00 Assessment/Plan Assessment/Plan Assessment/Plan The patient reports that she is weak, and wants to go to [facility]. I am concerned that the patient's global performance status may make going home difficult, nonetheless we will work to place her there tomorrow Problems: (1) UTI (urinary tract infection) Status: Acute Assessment & Plan: On Levaquin for sensitive ESBL E. coli ICD Code: N39.0 - Urinary tract infection, site not specified SNOMED: 62828967 (2) CAD (coronary artery disease) Status: Chronic ICD Code: I25.10 - Atherosclerotic heart disease of [place] coronary artery without angina pectoris SNOMED: 26288756 (3) Nausea & vomiting Status: Acute Assessment & Plan: Improved on Zofran ICD Code: R11.2 - Nausea with vomiting, unspecified SNOMED: 10280372 LAMAR SIMPSON MD Jul 11, 2021 19:27
[2021-07-11 20:00] VITALS: BP 128/67
[2021-07-12] VITALS: BP 136/90
[2021-07-12] MEDS: ZOFRAN IV SCH ×3 (01:12→13:39)
[2021-07-12] MEDS: NORCO 10MG PO PRN (01:13)
[2021-07-12] MEDS: BENADRYL PO PRN (01:13)
[2021-07-12 04:00] VITALS: BP 140/82
[2021-07-12] MEDS: D5NS 1,000 ML IV SCH (05:41)
[2021-07-12] MEDS: DUO 0.5-3(2.5) MG/3 ML IH SCH ×2 (08:36→13:21)
[2021-07-12 08:40] VITALS: BP 144/81
[2021-07-12] MEDS: NYSTOP TP SCH (09:46)
[2021-07-12] MEDS: LEVAQUIN PO SCH (09:46)
[2021-07-12] MEDS: LOPRESSER PO SCH (09:46)
[2021-07-12] MEDS: ELIQUIS PO SCH (09:46)
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
[2021-07-12 13:58] VITALS: BP 156/93
--- NOTE | 2021-07-12 14:13 | PRM.DC ---
Discharge Summary Date of Discharge: Jul 11, 2021 Reason for Visit: Malaise fatigue and nausea of all Hospital Course Ms. Baldwin is a very pleasant 75-year-old female who presents with malaise fatigue and intractable nausea and emesis. The patient was found to have a urinary tract infection, was started on empiric Rocephin which was transitioned over to Levaquin once sensitivities revealed that it was sensitive only to that and a few other agents. The patient's nausea slowly improved on scheduled Zofran, and after she was able to tolerate oral intake she was discharged to SNF to complete an additional 5 days of Levaquin. Patient History: Asthma G8 MOTHER Chronic obstructive pulmonary disease G8 MOTHER FH: alcoholism G8 MOTHER No known health problems G8 FATHER 19 CHILD 19 CHILD 19 CHILD 19 CHILD 19 CHILD General: Alert, Oriented X3, Cooperative HEENT: PERRLA, EOMI Neck: No JVD, No thyromegaly Lungs: Clear to auscultation, Normal air movement Heart: Regular rate, Normal S1, Normal S2 Abdomen: Normal bowel sounds, Soft Extremities: No clubbing, No cyanosis Skin: No breakdown Neuro: Normal gait, Normal speech Psych/Mental Status: Mental status NL, Mood NL Scheduled Albuterol Sulfate (Proair Respiclick), 90 MCG IH Q4, (Reported) Amiodarone HCl (Amiodarone HCl), 2 TAB PO QD, (Reported) Aspirin (Aspirin), 81 MG PO DAILY24 Budesonide/Formoterol Fumarate (Symbicort 160-4.5 Mcg Inhaler), 2 PUFF IH DAILY24, (Reported) Buspirone Hcl (Buspirone Hcl), 1 TAB PO TID, (Reported) Cefdinir (Cefdinir), 1 CAP PO BID, (Reported) Doxycycline Hyclate (Doxycycline Hyclate), 1 CAP PO BID, (Reported) Fluticasone Propionate (Fluticasone Propionate), 1 SPR NA DAILY, (Reported) Gabapentin (Neurontin), 1 CAP PO TID, (Reported) Levofloxacin (Levaquin), 750 MG PO DAILY Montelukast Sodium (Montelukast Sodium), 1 TAB PO DAILY, (Reported) Ondansetron (Ondansetron Odt), 8 MG PO Q8H Pantoprazole Sodium (Pantoprazole Sodium), 20 MG PO DAILY24, (Reported) Pravastatin Sodium (Pravastatin Sodium), 1 TAB PO DAILY Rivaroxaban (Xarelto), 1 TAB PO DAILY24, (Reported) Vilazodone Hydrochloride (Viibryd), 1 TAB PO DAILY, (Reported) Scheduled PRN Diclofenac Sodium (Diclofenac Sodium), 100 GM TP Q6HR PRN for PAIN 1 - 3, (Reported) Sepsis Evaluation @ Discharge Vital Sign - Last 24 Hours 07/09/21 07/09/21 09:03 09:03 Pulse 77 Resp 18 18 Pulse Ox 92 85 O2 Delivery Nasal Cannula O2 Flow Rate 3.50 FiO2 35 Laboratory Tests Test 07/08/21 15:25 07/08/21 17:30 07/08/21 18:00 07/08/21 18:10 Urine Collection Type CATH Urine Color YELLOW Urine Appearance CLOUDY Urine Bilirubin NEGATIVE Urine Ketones NEGATIVE Urine Specific Calvin 1.025 Urine pH 5.5 Urine Protein NEGATIVE Urine Urobilinogen 0.2 E.U./dL Urine Nitrate POSITIVE Urine Leukocyte Esterase 1+ Urine Glucose (Auto)(UA) NEGATIVE Urine Blood NEGATIVE Urine RBC 2-5 RBC/HPF Urine WBC TooNumerousToCount WBC/HPF Urine Squamous Epithelial Cells FEW Urine Bacteria MANY White Blood Count 19.6 10^3/uL Red Blood Count 3.61 10^6/uL Hemoglobin 11.2 g/dL Hematocrit 36.1 % Mean Corpuscular Volume 100.0 fL Mean Corpuscular Hemoglobin 31.0 pg Mean Corpuscular Hemoglobin Concent 31.0 g/dL Red Cell Distribution Width 15.6 % Platelet Count 321 10^3/uL Mean Platelet Volume 10.1 fL Neutrophils (%) (Auto) 91.2 % Lymphocytes (%) (Auto) 3.5 % Monocytes (%) (Auto) 4.6 % Neutrophils # (Auto) 17.9 10^3/uL Lymphocytes # (Auto) 0.68 10^3/uL1 Monocytes # (Auto) 0.9 10^3/uL Absolute Immature Granulocyte (auto 0.10 10^3 u/L Absolute Eosinophils (auto) 0.0 10^3/uL Immature Granulocytes % 0.50 % Eosinophils % 0.0 % Basophils % 0.2 % Basophils # 0.0 10^3/uL Sodium Level 141 mmol/L Potassium Level 4.1 mmol/L Chloride Level 105.0 mmol/L Carbon Dioxide Level 28.9 mmol/L Anion Gap 11.2 Blood Urea Nitrogen 16 mg/dL Creatinine 1.34 mg/dL Estimated GFR () 46.7 Est GFR (CKD-EPI)(Non-Afr Uzbek) 38.6 BUN/Creatinine Ratio 11.0 Glucose Level 100 mg/dL Lactic Acid Level 1.8 mmol/L Calcium Level 8.4 mg/dL Total Bilirubin 0.5 mg/dL Aspartate Amino Transf (AST/SGOT) 25 U/L Alanine Aminotransferase (ALT/SGPT) 23 U/L Alkaline Phosphatase 90 U/L Total Protein 6.0 g/dL Albumin 2.6 g/dL Globulin 3.4 Albumin/Globulin Ratio 0.764 SARS-CoV-2 Antigen (Rapid) NEGATIVE Segmented Neutrophils 97 % Lymphocytes 2 % Monocytes 1 % Platelet Estimate ADEQUATE Platelet Morphology NORMAL Test 07/09/21 05:35 White Blood Count 19.0 10^3/uL Red Blood Count 3.28 10^6/uL Hemoglobin 10.1 g/dL Hematocrit 33.3 % Mean Corpuscular Volume 101.5 fL Mean Corpuscular Hemoglobin 30.8 pg Mean Corpuscular Hemoglobin Concent 30.3 g/dL Red Cell Distribution Width 15.8 % Platelet Count 279 10^3/uL Mean Platelet Volume 10.1 fL Neutrophils (%) (Auto) 86.7 % Lymphocytes (%) (Auto) 7.3 % Monocytes (%) (Auto) 5.2 % Neutrophils # (Auto) 16.5 10^3/uL Lymphocytes # (Auto) 1.39 10^3/uL1 Monocytes # (Auto) 1.0 10^3/uL Absolute Immature Granulocyte (auto 0.04 10^3 u/L Absolute Eosinophils (auto) 0.1 10^3/uL Immature Granulocytes % 0.20 % Eosinophils % 0.4 % Basophils % 0.2 % Basophils # 0.0 10^3/uL Sodium Level 141 mmol/L Potassium Level 3.9 mmol/L Chloride Level 109.0 mmol/L Carbon Dioxide Level 26.9 mmol/L Glucose Level 115 mg/dL Blood Urea Nitrogen 16 mg/dL Creatinine 1.08 mg/dL Calcium Level 7.9 mg/dL Anion Gap 9.0 Estimated GFR () 59.8 Est GFR (CKD-EPI)(Non-Afr Uzbek) 49.5 BUN/Creatinine Ratio 14.0 Current Medications Medications (Trade) Dose Ordered Sig/Mj PRN Reason Start Time Stop Time Status Last Admin Acetaminophen/ Hydrocodone Bitart ([place] 10mg) 1 each Q6H PRN PAIN 7 - 10 07/09/21 06:00 08/08/21 05:59 07/09/21 06:02 Ceftriaxone Sodium 1000 mg/ Sodium Chloride 100 ml @ 100 mls/hr Q24HRS 07/08/21 22:00 08/07/21 21:59 07/09/21 00:17 Dextrose/Sodium Chloride 1,000 ml @ 100 mls/hr Q10H 07/08/21 22:00 08/07/21 21:59 07/09/21 11:21 Course Sepsis Screening Results: Posi: POSITIVE Sepsis Qualifier/Stage: SEPSIS RISK Duration or Total Time Spent w: Unknown Vitals & review Data Vital Sign - Last 24 Hours 07/09/21 07/09/21 09:03 09:03 Pulse 77 Resp 18 18 Pulse Ox 92 85 O2 Delivery Nasal Cannula O2 Flow Rate 3.50 FiO2 35 Laboratory Tests Test 07/08/21 15:25 07/08/21 17:30 07/08/21 18:00 07/08/21 18:10 Urine Collection Type CATH Urine Color YELLOW Urine Appearance CLOUDY Urine Bilirubin NEGATIVE Urine Ketones NEGATIVE Urine Specific [place] 1.025 Urine pH 5.5 Urine Protein NEGATIVE Urine Urobilinogen 0.2 E.U./dL Urine Nitrate POSITIVE Urine Leukocyte Esterase 1+ Urine Glucose (Auto)(UA) NEGATIVE Urine Blood NEGATIVE Urine RBC 2-5 RBC/HPF Urine WBC TooNumerousToCount WBC/HPF Urine Squamous Epithelial Cells FEW Urine Bacteria MANY White Blood Count 19.6 10^3/uL Red Blood Count 3.61 10^6/uL Hemoglobin 11.2 g/dL Hematocrit 36.1 % Mean Corpuscular Volume 100.0 fL Mean Corpuscular Hemoglobin 31.0 pg Mean Corpuscular Hemoglobin Concent 31.0 g/dL Red Cell Distribution Width 15.6 % Platelet Count 321 10^3/uL Mean Platelet Volume 10.1 fL Neutrophils (%) (Auto) 91.2 % Lymphocytes (%) (Auto) 3.5 % Monocytes (%) (Auto) 4.6 % Neutrophils # (Auto) 17.9 10^3/uL Lymphocytes # (Auto) 0.68 10^3/uL1 Monocytes # (Auto) 0.9 10^3/uL Absolute Immature Granulocyte (auto 0.10 10^3 u/L Absolute Eosinophils (auto) 0.0 10^3/uL Immature Granulocytes % 0.50 % Eosinophils % 0.0 % Basophils % 0.2 % Basophils # 0.0 10^3/uL Sodium Level 141 mmol/L Potassium Level 4.1 mmol/L Chloride Level 105.0 mmol/L Carbon Dioxide Level 28.9 mmol/L Anion Gap 11.2 Blood Urea Nitrogen 16 mg/dL Creatinine 1.34 mg/dL Estimated GFR () 46.7 Est GFR (CKD-EPI)(Non-Afr Uzbek) 38.6 BUN/Creatinine Ratio 11.0 Glucose Level 100 mg/dL Lactic Acid Level 1.8 mmol/L Calcium Level 8.4 mg/dL Total Bilirubin 0.5 mg/dL Aspartate Amino Transf (AST/SGOT) 25 U/L Alanine Aminotransferase (ALT/SGPT) 23 U/L Alkaline Phosphatase 90 U/L Total Protein 6.0 g/dL Albumin 2.6 g/dL Globulin 3.4 Albumin/Globulin Ratio 0.764 SARS-CoV-2 Antigen (Rapid) NEGATIVE Segmented Neutrophils 97 % Lymphocytes 2 % Monocytes 1 % Platelet Estimate ADEQUATE Platelet Morphology NORMAL Test 07/09/21 05:35 White Blood Count 19.0 10^3/uL Red Blood Count 3.28 10^6/uL Hemoglobin 10.1 g/dL Hematocrit 33.3 % Mean Corpuscular Volume 101.5 fL Mean Corpuscular Hemoglobin 30.8 pg Mean Corpuscular Hemoglobin Concent 30.3 g/dL Red Cell Distribution Width 15.8 % Platelet Count 279 10^3/uL Mean Platelet Volume 10.1 fL Neutrophils (%) (Auto) 86.7 % Lymphocytes (%) (Auto) 7.3 % Monocytes (%) (Auto) 5.2 % Neutrophils # (Auto) 16.5 10^3/uL Lymphocytes # (Auto) 1.39 10^3/uL1 Monocytes # (Auto) 1.0 10^3/uL Absolute Immature Granulocyte (auto 0.04 10^3 u/L Absolute Eosinophils (auto) 0.1 10^3/uL Immature Granulocytes % 0.20 % Eosinophils % 0.4 % Basophils % 0.2 % Basophils # 0.0 10^3/uL Sodium Level 141 mmol/L Potassium Level 3.9 mmol/L Chloride Level 109.0 mmol/L Carbon Dioxide Level 26.9 mmol/L Glucose Level 115 mg/dL Blood Urea Nitrogen 16 mg/dL Creatinine 1.08 mg/dL Calcium Level 7.9 mg/dL Anion Gap 9.0 Estimated GFR () 59.8 Est GFR (CKD-EPI)(Non-Afr Uzbek) 49.5 BUN/Creatinine Ratio 14.0 Current Medications Medications (Trade) Dose Ordered Sig/Mj PRN Reason Start Time Stop Time Status Last Admin Acetaminophen/ Hydrocodone Bitart ([place] 10mg) 1 each Q6H PRN PAIN 7 - 10 07/09/21 06:00 08/08/21 05:59 07/09/21 06:02 Ceftriaxone Sodium 1000 mg/ Sodium Chloride 100 ml @ 100 mls/hr Q24HRS 07/08/21 22:00 08/07/21 21:59 07/09/21 00:17 Dextrose/Sodium Chloride 1,000 ml @ 100 mls/hr Q10H 07/08/21 22:00 08/07/21 21:59 07/09/21 11:21 LEVEL 1 SEPSIS INFECTION CRITE: ABX Therapy, Urinary Tract Infection LEVEL 2-SIRS (LIST ALL THAT AP: [id number] Cardiovascular Evidence: Not Assessed or None Hematologic Evidence: None/Not assessed Hepatic Evidence: None/Not assessed Metabolic Evidence: None/Not assessed Neurological Evidence: None/Not assessed Respiratory Evidence: Need for O2 to keep>90%, O2 SAT<90room air Renal Evidence: None/Not assessed O2 Sat by Pulse Oximetry: 97 Respiratory End-tidal CO2: 96 Oxygen Flow Rate: 3.00 LAMAR SIMPSON MD Jul 12, 2021 14:12
--- NOTE | 2021-07-12 15:01 | NUR ---
DISCHARGE PLAN UPDATE - [facility] CM RECEIVED PHONE CALL FROM [email or web address] AND [facility] WILLING TO TAKE PATIENT FOR 20 DAYS WHILE ALLOWING PATIENT AND FAMILY TO PROVIDE FINANCIAL INFORMATION TO GET [facility] AND [facility] WILL CONTACT PATIENT'S DAUGHTER AND INFORM. CM NOTIFIED ALEN GAMEZ AND DR SIMPSON. PLAN IS TO DISCHARGE PATIENT TO [facility] TODAY. CM FAXED [facility] TO [facility]. FAX CONFIRMATION CONFIRMED COMPLETE.
== END 2021-07-12 16:40 | DRG 872 ==
LOC: EDUNIT# 17:05 → EDBD 17:05 → ER 17:05 → MS 19:12 → ER 19:38
PROVIDERS: ADMIT Surgery; ATTEND Surgery
DX: A41.9 Sepsis, unspecified organism (principal); N39.0 Urinary tract infection, site not specified; M00.9 Pyogenic arthritis, unspecified; Z16.12 Extended spectrum beta lactamase (ESBL) resistance; Z68.41 Body mass index [BMI] 40.0-44.9, adult; I25.10 Atherosclerotic heart disease of native coronary artery without angina pectoris; I11.0 Hypertensive heart disease with heart failure; I50.9 Heart failure, unspecified; I95.9 Hypotension, unspecified; Z20.822 Contact with and (suspected) exposure to COVID-19; K21.9 Gastro-esophageal reflux disease without esophagitis; I48.91 Unspecified atrial fibrillation; E78.00 Pure hypercholesterolemia, unspecified; E66.01 Morbid (severe) obesity due to excess calories; R29.6 Repeated falls; B96.20 Unspecified Escherichia coli [E. coli] as the cause of diseases classified elsewhere; Z82.5 Family history of asthma and other chronic lower respiratory diseases; Z86.73 Personal history of transient ischemic attack (TIA), and cerebral infarction without residual deficits; Z79.51 Long term (current) use of inhaled steroids; Z88.5 Allergy status to narcotic agent; Z88.2 Allergy status to sulfonamides; Z88.0 Allergy status to penicillin; Z88.8 Allergy status to other drugs, medicaments and biological substances; Z79.899 Other long term (current) drug therapy; Z79.82 Long term (current) use of aspirin
CPT/HCPCS: 36415; 71045; 80048; 80053; 81001; 83605; 85025; 87040; 87070; 87077; 87086; 87186; 87426; 94640; 99285; G0378; J0696; J1956; J2405; J3370; J7030; J7050; Q0163; 73560-LT